=== PATIENT | female | born 1970 | race African-American/Black ===

== ENCOUNTER → 2017-01-08 | Outpatient (CLI) | payer OTHER | LOC: WI 10:30 | PROVIDERS: ATTEND Obstetrics & Gynecology | DX: Z12.31 Encounter for screening mammogram for malignant neoplasm of breast (principal) | CPT/HCPCS: 77067; G0202 ==

== ENCOUNTER 2017-01-16 13:07 | Emergency (ER) | payer OTHER ==
[2017-01-16] MEDS ORDERED: ASPIRIN 81 MG TABLET, CHEWABLE PO ONE (13:27)
--- NOTE | 2017-01-16 13:27 | ER Document Report ---
ED Medical Screen (RME) - General Stated Complaint: CHEST PAIN Notes: patient is a 46 year old 4 days ago, substernal pressure that is constant without any wax/waning. hurts worse with deep breathing. -tobacco use, BC, recent travel, recent surgery, cancer h/o -htn, hld, GERD +Dm I have greeted and performed a rapid initial assessment of this patient. A comprehensive ED assessment and evaluation of the patient, analysis of test results and completion of the medical decision making process will be conducted by additional ED providers. TRAVEL OUTSIDE OF THE [place] IN LAST 30 DAYS: No - Related Data Allergies/Adverse Reactions: hydrocodone Adverse Reaction (Verified 05/16/16 08:11) Past Medical History - Past Medical History Cardiac Medical History: Denies: Hx Coronary Artery Disease, Hx Heart Attack, Hx Hypertension Pulmonary Medical History: Denies: Hx Asthma, Hx Bronchitis, Hx COPD, Hx Pneumonia Neurological Medical History: Denies: Hx Cerebrovascular Accident, Hx Seizures Musculoskeltal Medical History: Reports Hx Arthritis - hands and knees - Immunizations Hx Diphtheria, Pertussis, Tetanus Vaccination: Yes Physical Exam - Vital signs Vitals: Temp Pulse BP Pulse Ox 98.0 F 72 137/79 H 98 01/16/17 13:20 01/16/17 13:20 01/16/17 13:20 01/16/17 13:20 Course - Vital Signs Vital signs: Temp Pulse Resp BP Pulse Ox 98.0 F 72 137/79 H 98 01/16/17 13:20 01/16/17 13:20 01/16/17 13:20 01/16/17 13:20
[2017-01-16 13:59] LABS: ABSOLUTE MONOCYTES (AUTO) 0.5 10^3/uL (0.1-1.4); ABSOLUTE NEUT (AUTO) 4.1 10^3/uL (1.7-8.2); BASOPHILS % (AUTO) 0.6 % (0-2); EOSINOPHILS % (AUTO) 0.4 % (0-6); HEMATOCRIT 37.6 % (36.0-47.0); HEMOGLOBIN 12.2 g/dL (12.0-15.5); MEAN CORPUSCULAR HEMOGLOBIN 25.9 pg (27.0-33.4); MEAN CORPUSCULAR HGB CONC 32.5 g/dL (32.0-36.0); MEAN CORPUSCULAR VOLUME 80 fl (80-97); MONOCYTES % (AUTO) 7.6 % (3-13); RED BLOOD COUNT 4.71 10^6/uL (3.72-5.28); RED CELL DISTRIBUTION WIDTH 14.5 % (11.5-14.0); SEGMENTED NEUTROPHILS % (AUTO) 61.4 % (42-78); WHITE BLOOD COUNT 6.7 10^3/uL (4.0-10.5)
[2017-01-16 14:09] LABS: ALANINE AMINOTRANSFERASE 29 U/L (9-52); ALBUMIN 4.2 g/dL (3.5-5.0); ALKALINE PHOSPHATASE 71 U/L (38-126); ANION GAP 10 (5-19); ASPARTATE AMINO TRANSFERASE 24 U/L (14-36); BILIRUBIN,TOTAL 0.5 mg/dL (0.2-1.3); BLOOD UREA NITROGEN 8 mg/dL (7-20); CALCIUM 9.4 mg/dL (8.4-10.2); CARBON DIOXIDE 30 mmol/L (22-30); CHLORIDE 99 mmol/L (98-107); CREATINE KINASE 51 U/L (30-135); GLUCOSE 80 mg/dL (75-110); POTASSIUM 4.2 mmol/L (3.6-5.0); SODIUM 139.3 mmol/L (137-145); TOTAL PROTEIN 7.8 g/dL (6.3-8.2)
[2017-01-16 14:22] LABS: CREATINE KINASE MB < 0.22 ng/mL (<4.55); TROPONIN I < 0.012 ng/mL
--- NOTE | 2017-01-16 19:47 | ER Document Report ---
ED Cardiac - General Chief Complaint: Chest Pain Stated Complaint: CHEST PAIN Notes: The patient is a 46-year-old female, past medical history prediabetes, presents with 3 days of right sternal chest pain that is worse when she moves. She is never had this in the past. Does not remember lifting any heavy objects. She says the pain is worse when she pushes on the area. Denies shortness of breath , nausea, vomiting, leg swelling, recent travel, recent surgery, history of malignancy, control use, cough, fevers or back pain. TRAVEL OUTSIDE OF THE [place] IN LAST 30 DAYS: No - Related Data Allergies/Adverse Reactions: hydrocodone Adverse Reaction (Verified 01/16/17 13:24) Past Medical History - General Information source: Patient - Social History Smoking Status: Never Smoker Chew tobacco use (# tins/day): No Frequency of alcohol use: None Drug Abuse: None Family History: Reviewed & Not Pertinent Patient has suicidal ideation: No Patient has homicidal ideation: No - Past Medical History Cardiac Medical History: Denies: Hx Coronary Artery Disease, Hx Heart Attack, Hx Hypertension Pulmonary Medical History: Denies: Hx Asthma, Hx Bronchitis, Hx COPD, Hx Pneumonia Neurological Medical History: Denies: Hx Cerebrovascular Accident, Hx Seizures Renal/ Medical History: Denies: Hx Peritoneal Dialysis Musculoskeltal Medical History: Reports Hx Arthritis - hands and knees Past Surgical History: Reports: Hx Orthopedic Surgery - R SHOULDER REPLACEMENT, Hx Thyroid Surgery, Hx Tubal Ligation - Immunizations Hx Diphtheria, Pertussis, Tetanus Vaccination: Yes Review of Systems - Review of Systems Notes: REVIEW OF SYSTEMS: CONSTITUTIONAL: -fevers, -chills EENT: -eye pain, -difficulty swallowing, -nasal congestion CARDIOVASCULAR: +chest pain, -syncope. RESPIRATORY: -cough, -SOB GASTROINTESTINAL: -abdominal pain, - nausea, -vomiting, -diarrhea GENITOURINARY: -dysuria, -hematuria MUSCULOSKELETAL: -back pain, -neck pain SKIN: -rash or skin lesions. HEMATOLOGIC: -easy bruising or bleeding. LYMPHATIC: -swollen, enlarged glands. NEUROLOGICAL: -altered mental status or loss of consciousness, -headache, - neurologic symptoms PSYCHIATRIC: -anxiety, -depression. ALL OTHER SYSTEMS REVIEWED AND NEGATIVE. Physical Exam - Vital signs Vitals: Temp Pulse BP Pulse Ox 98.0 F 72 137/79 H 98 01/16/17 13:20 01/16/17 13:20 01/16/17 13:20 01/16/17 13:20 - Notes Notes: PHYSICAL EXAMINATION: GENERAL: Well-appearing, well-nourished and in no acute distress. HEAD: Atraumatic, normocephalic. EYES: Pupils equal round and reactive to light, extraocular movements intact, sclera anicteric, conjunctiva are normal. ENT: nares patent, oropharynx clear without exudates. Moist mucous membranes. NECK: Normal range of motion, supple without lymphadenopathy LUNGS: Breath sounds clear to auscultation bilaterally and equal. No wheezes rales or rhonchi. HEART: Right mid-sternal tenderness. Regular rate and rhythm without murmurs ABDOMEN: Soft, nontender, normoactive bowel sounds. No guarding, no rebound. No masses appreciated. EXTREMITIES: Normal range of motion, no pitting or edema. No cyanosis. NEUROLOGICAL: Cranial nerves grossly intact. Normal speech, normal gait. Normal sensory, motor, and reflex exams. PSYCH: Normal mood, normal affect. SKIN: Warm, Dry, normal turgor, no rashes or lesions noted. Course - Re-evaluation Re-evalutation: 2 sets of troponins are negative. HEART score of 2. PERC negative. Symptoms atypical for aortic dissection. Patient says she will call her primary care physician tomorrow morning for an appointment. Given strict return precautions and she understands. - Vital Signs Vital signs: Temp Pulse Resp BP Pulse Ox 98.0 F 72 137/79 H 98 01/16/17 13:20 01/16/17 13:20 01/16/17 13:20 01/16/17 13:20 - Laboratory Result Diagrams: 01/16/17 13:30 01/16/17 13:30 Laboratory results interpreted by me: 01/16/17 13:30 MCH 25.9 L RDW 14.5 H Discharge - Discharge Clinical Impression: Chest pain Qualifiers: Chest pain type: unspecified Qualified Code(s): R07.9 - Chest pain, unspecified Condition: Good Disposition: HOME, SELF-CARE Additional Instructions: Call your primary care physician tomorrow to make an appointment to have your chest pain rechecked. Return immediately to the emergency room if he noticed worsening chest pain or shortness of breath. CHEST PAIN OF UNCLEAR CAUSE: The exact cause of your chest pain isn't clear. Fortunately, there is no evidence of a dangerous medical condition. Further testing may be required to find the source of the pain. Most often, we find that this pain is coming from the chest wall -- the muscles or rib joints in the chest. But chest pain can come from the lung and lung lining, the esophagus, the heart valves or heart lining, and even the stomach or gallbladder. Rest. Eat lightly until the pain is gone. We may prescribe medicine for pain and inflammation. You should call the physician immediately if the pain radiates to the shoulder, jaw or arms; if you start to run a fever or develop a cough; or if you develop shortness of breath, or other new or alarming symptoms. NORMAL EXAM AND WORKUP: At this time, your examination and workup show no significant abnormality. No significant abnormal physical findings were noted. All laboratory, EKG, and imaging (x-ray, CT scans, ultrasound) studies that were ordered show no significant abnormality. Although your examination and all studies that were ordered showed no significant abnormal finding, there are no examinations and no studies that are 100% accurate. There is always the possibility that some abnormality could exist and not be detected with physical examination or within the limits and capabilities of laboratory and other studies. You should return or follow up as you were instructed on your visit today for further evaluation if your symptoms do not resolve. CHEST WALL PAIN: Your chest pain may be coming from the chest wall. This is often caused by straining the muscles or joints in the chest during physical activity, direct trauma, coughing, or vigorous vomiting. Persons with arthritis are especially prone to this type of pain, due to inflammation of the cartilage joints near the breast bone. Occasionally, no cause can be found. Rest from strenuous physical activity. This kind of chest pain is usually made worse by movement of the chest. Depending on the symptoms, we may prescribe medicine for pain, muscle relaxation, and antiinflammatory effects. If the pain is new, and seems to be due to muscle strain, cold packs can help. Otherwise, apply gentle warmth to the painful area for 15 minutes every hour or two. You should call contact the doctor immediately if things change. Further evaluation is needed if you develop a fever or cough, if the nature of the pain changes, or if you become short of breath. FOLLOW-UP CARE: If you have been referred to a physician for follow-up care, call the physician s office for an appointment as you were instructed or within the next two days. If you experience worsening or a significant change in your symptoms, notify the physician immediately or return to the Emergency Department at any time for re-evaluation.
[2017-01-16 20:20] VITALS: BP 135/79
--- NOTE | 2017-01-17 12:35 | EKG REPORT ---
SEVERITY:- ABNORMAL ECG - SINUS RHYTHM VENTRICULAR PREMATURE COMPLEX RIGHT AXIS DEVIATION PROBABLE INFERIOR INFARCT, OLD : Confirmed by: Elisa Ceballos 17-Jan-2017 12:34:49
== END 2017-01-16 20:20 | disposition home or self-care (01) ==
LOC: ER 13:07
DX: R07.9 Chest pain, unspecified (principal)
CPT/HCPCS: 36415; 71010; 80053; 82550; 82553; 84484; 85025; 93005; 93010; 99285

== ENCOUNTER → 2017-04-16 | Outpatient (CLI) | payer OTHER | LOC: WI 10:00 | PROVIDERS: ATTEND Obstetrics & Gynecology | DX: N64.4 Mastodynia (principal); R59.0 Localized enlarged lymph nodes | CPT/HCPCS: 76642; G0206 ==

== ENCOUNTER → 2017-05-14 | Outpatient (CLI) | payer OTHER ==
--- NOTE | 2017-05-15 10:10 | RADIOLOGY REPORT (SQ) ---
EXAM DESCRIPTION: MRI BREAST BILAT W AND/OR WO COMPLETED DATE/TIME: 05/14/2017 8:49 am REASON FOR STUDY: AXILLARY LYMPHADENOPATHY (R59.0) R59.0 LOCALIZED ENLARGED LYMPH NODES COMPARISON: Mammography and ultrasound PATHOLOGIC CORRELATION: None. CONTRAST TYPE AND DOSE: 20 mL Prohance. RENAL FUNCTION: None required. The patient is less than 50 years old. TECHNIQUE: MR imaging performed with a dedicated breast coil. Pre contrast T1 and T2 weighted images . Pre contrast and post contrast enhanced T1 weighted images with fat saturation. Subtraction images, 3D thick and thin MIPS, and kinetic analysis performed on an independent workstat ion. ([employer] workstation) Magnet strength: 1.5 T LIMITATIONS: None. FINDINGS: BREAST DENSITY: b. There are scattered areas of fibroglandular density. BACKGROUND PARENCHYMAL ENHANCEMENT:Mild. RIGHT BREAST: No enhancing or suspicious masses. No clumped, regional/segmental ductal enhancement. CHEST WALL: Normal tissue planes. No abnormal internal mammary nodes. AXILLA: Normal axillary and retro-pectoral nodes. LEFT BREAST:There are multiple micro lobular heterogeneously enhancing masses in the axillary tail of the breast extending to the axilla. Type 3 enhancement curves. The largest mass is 5 cm in maximum diameter. There is generalize asymmetric enhancement through the entire breast. There is skin thic kening. CHEST WALL: Normal tissue planes. No abnormal internal mammary nodes. AXILLA: Enlarged axillary nodes just adjacent to the dominant mass which is either an axillary node or mass in the tail of the breast. OTHER:No identified liver, bone, or lung lesions. No other significant incidental findings. IMPRESSION: BI-RADS 5 left breast. Axillary adenopathy with diffuse breast enhancement and skin thi ckening all worrisome for inflammatory breast carcinoma. BIRAD: RIGHT BREAST: 1 Negative. LEFT BREAST: 5 Highly suggestive of malignancy. Appropriate action should be taken. RECOMMENDATION: RECOMMENDED FOLLOW-UP: Ultrasound-guided core biopsy of the dominant mass in the lef t breast. TECHNICAL DOCUMENTATION: JOB ID: [id number] [employer]- All Rights Reserved
== END ==
LOC: RAD 07:12
PROVIDERS: ATTEND Surgery
DX: R59.0 Localized enlarged lymph nodes (principal); N63 Unspecified lump in breast
CPT/HCPCS: A9576; C8906; 77059

== ENCOUNTER → 2017-05-15 | Day surgery (SDC) | payer OTHER ==
[~2017-05-15] MED LIST: LIDOCAINE 2% INJ (20 MG/ML) 20 ML MDV ONE
--- NOTE | 2017-05-21 16:35 | WOMENS IMAGING REPORT ---
EXAM DESCRIPTION: U/S BREAST BX; U/S BREAST BX EACH ADDT'L COMPLETED DATE/TIME: 05/15/2017 12:27 pm; 05/15/2017 12:28 pm REASON FOR STUDY: R59.0 R59.0 LOCALIZED ENLARGED LYMPH NODES COMPARISON: MRI breast 05/14/2017, mammograms and breast ultrasound 04/16/2017 TECHNIQUE: The procedure was discussed with the patient and the patient agreed to proceed. Enlarged left axillary lymph node was targeted. There was a vague area of breast parenchymal shadowing in th e far upper outer quadrant adjacent to the lymph node which was also targeted. The patient was scanned and the area of interest in the far upper outer quadrant left breast. An enl arged axillary lymph node was localized, with a vague area of breast parenchymal shadowing in the far upper outer quadrant. These areas correlate with the area of concern on prior imaging studies. The se areas were targeted for ultrasound-guided core biopsy. LEFT AXILLA: After sterile skin prep and 3.5 mL local lidocaine 1% for skin and deep tissue anesthesia, a 14 gauge coaxial core biopsy needle was used to obtain several cores of tissue from the lesion. Under ultras ound guidance, a ribbon clip was placed in the areas sampled. There were no immediate post-procedure complications. LEFT UPPER OUTER QUADRANT: After sterile skin prep and 3 mL local lidocaine 1% for skin and deep tissue anesthesia, a 14 gauge c oaxial core biopsy needle was used to obtain several cores of tissue from the lesion. Under ultrasou nd guidance, a ribbon clip was placed in the areas sampled. There were no immediate post-procedure c omplications. MAMMOGRAM: Post-procedure two view mammogram was not acquired in the digital mammogram suite. Pathology yields a diagnosis of metastatic high-grade carcinoma in the left axillary lymph node and i n the upper outer quadrant breast parenchyma Pathology is concordant. LIMITATIONS: None. FINDINGS: Ultrasound guided breast biopsy as described above. POST PROCEDURE MAMMOGRAMS FOR MARKER PLACEMENT: No IMPRESSION: ULTRASOUND-GUIDED CORE BIOPSY OF THE LEFT BREAST YIELDS A DIAGNOSIS OF MALIGNANCY COMMENT: COMMUNICATION: RESULTS OF THE BIOPSY WERE DISCUSSED WITH THE PATIENT, 05/19/2017 1700 HOURS Patient medication list reviewed: Yes- Quality ID# [id number]:Eligible professional attests to documenting i n the medical record they obtained, updated, or reviewed the patient's current medications. TECHNICAL DOCUMENTATION: JOB ID: [id number] [employer]- All Rights Reserved
== END ==
LOC: WI 13:19
PROVIDERS: ATTEND Surgery
PROC: 0HBU3ZX Excision of Left Breast, Percutaneous Approach, Diagnostic (ICD-10-PCS; principal; 2017-05-15)
DX: C50.412 Malignant neoplasm of upper-outer quadrant of left female breast (principal); C77.3 Secondary and unspecified malignant neoplasm of axilla and upper limb lymph nodes
CPT/HCPCS: 88342 ×2; 88341 ×2; 88305 ×2; 19083; 19084; J3490

== ENCOUNTER 2017-05-20 10:00 | Day surgery (SDC) | payer OTHER ==
[~2017-05-20 10:00] MED LIST changes: +ACETAMINOPHEN 325 MG TABLET PO PRN; +CEFAZOLIN 1 GM/D5W RTU 1 GM/50 ML RTUPB IV PRN; -LIDOCAINE 2% INJ (20 MG/ML) 20 ML MDV ONE
[2017-05-20] MEDS ORDERED: BUPIVACAINE HCL 0.25 % INJ/PF (2.5 MG/1 ML) 30 ML VIAL ONE ×2 (10:02→13:57)
[2017-05-20] MEDS ORDERED: MIDAZOLAM 2 MG/2 ML INJ ONE ×2 (10:47→11:20)
[2017-05-20 10:58] LABS: ABSOLUTE LYMPHOCYTES (AUTO) 1.5 10^3/uL (0.5-4.7); ABSOLUTE MONOCYTES (AUTO) 0.4 10^3/uL (0.1-1.4); ABSOLUTE NEUT (AUTO) 2.6 10^3/uL (1.7-8.2); EOSINOPHILS % (AUTO) 0.6 % (0-6); HEMATOCRIT 37.6 % (36.0-47.0); HEMOGLOBIN 11.8 g/dL (12.0-15.5); HGB HCT DIFFERENCE -2.2; LYMPHOCYTES % (AUTO) 32.6 % (13-45); MEAN CORPUSCULAR HGB CONC 31.5 g/dL (32.0-36.0); MEAN CORPUSCULAR VOLUME 79 fl (80-97); MONOCYTES % (AUTO) 8.8 % (3-13); RED BLOOD COUNT 4.74 10^6/uL (3.72-5.28); RED CELL DISTRIBUTION WIDTH 15.1 % (11.5-14.0); WHITE BLOOD COUNT 4.5 10^3/uL (4.0-10.5)
--- NOTE | 2017-05-20 11:03 | RADIOLOGY REPORT (SQ) ---
EXAM DESCRIPTION: CHEST SINGLE VIEW COMPLETED DATE/TIME: 05/20/2017 10:51 am REASON FOR STUDY: preop/ PACU 10 COMPARISON: 01/16/2017 EXAM PARAMETERS: NUMBER OF VIEWS: One view. TECHNIQUE: Single frontal radiographic view of the chest acquired. RADIATION DOSE: NA LIMITATIONS: None. FINDINGS: LUNGS AND PLEURA: No opacities, masses or pneumothorax. No pleural effusion. MEDIASTINUM AND HILAR STRUCTURES: No masses. Contour normal. HEART AND VASCULAR STRUCTURES: Heart normal in size. Normal vasculature. BONES: No acute findings. HARDWARE: None in the chest. OTHER: No other significant finding. IMPRESSION: NO ACUTE RADIOGRAPHIC FINDING IN THE CHEST. TECHNICAL DOCUMENTATION: JOB ID: [id number]
[2017-05-20 11:11] LABS: ALANINE AMINOTRANSFERASE 25 U/L (9-52); ALBUMIN 4.1 g/dL (3.5-5.0); ALKALINE PHOSPHATASE 70 U/L (38-126); ANION GAP 9 (5-19); ASPARTATE AMINO TRANSFERASE 25 U/L (14-36); BILIRUBIN,DIRECT 0.3 mg/dL (0.0-0.4); BILIRUBIN,TOTAL 0.6 mg/dL (0.2-1.3); BLOOD UREA NITROGEN 10 mg/dL (7-20); CALCIUM 9.2 mg/dL (8.4-10.2); CARBON DIOXIDE 28 mmol/L (22-30); CHLORIDE 105 mmol/L (98-107); GLUCOSE 92 mg/dL (75-110); POTASSIUM 3.9 mmol/L (3.6-5.0); SODIUM 142.1 mmol/L (137-145); TOTAL PROTEIN 7.9 g/dL (6.3-8.2)
[2017-05-20] MEDS ORDERED: FENTANYL CITRATE INJ/PF 100 MCG/2 ML AMPUL ONE ×2 (11:19→12:36)
[2017-05-20] MEDS ORDERED: PROPOFOL INJ 200 MG/20 ML VIAL IV ONE ×3 (11:20→13:09)
[2017-05-20] MEDS ORDERED: MEPERIDINE HCL/PF INJ 25 MG/1 ML DISP.SYRIN IV PRN (12:53)
[2017-05-20] MEDS ORDERED: PROMETHAZINE HCL INJ 25 MG/1 ML VIAL IV PRN ×2 (12:53)
[2017-05-20] MEDS ORDERED: FENTANYL CITRATE INJ/PF 100 MCG/2 ML AMPUL IV PRN ×3 (12:53)
[2017-05-20] MEDS ORDERED: DIPHENHYDRAMINE HCL 50 MG/ML VIAL IV PRN (12:53)
[2017-05-20] MEDS ORDERED: ONDANSETRON HCL INJ/PF 4 MG/2 ML SDV IV PRN (12:53)
--- NOTE | 2017-05-20 14:59 | PDOC DISCHARGE SUMMARY ---
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 Left breast punch skin biopsy. Left breast core needle biopsies. May discharge patient home when met discharge criteria. Follow-up with me next week. May shower tomorrow. Take the Band-Aid off of her left breast tomorrow. Prescriptions: Oxycodone HCl/Acetaminophen [Percocet 5-325 mg Tablet] 1 tab PO ASDIR PRN #25 tablet PRN Reason: Discharge Diet: As Tolerated Discharge Activity: Activity As Tolerated - Stay active but avoid strenuous activity. Report the Following to Your Physician Immediately: Fever over 101 Degrees, Unusual Bleeding, Drainage-Foul Smelling
--- NOTE | 2017-05-20 15:19 | RADIOLOGY REPORT (SQ) ---
EXAM DESCRIPTION: FLUORO/CV PLACEMENT COMPLETED DATE/TIME: 05/20/2017 2:29 pm REASON FOR STUDY: PORTACATH C50.912 MALIGNANT NEOPLASM OF UNSPECIFIED SITE OF LEFT FEMAL COMPARISON: AP chest 05/20/2017 FLUOROSCOPY TIME: 14.1 minutes 12 series of digital images saved to PACS. TECHNIQUE: Intra-operative images acquired during surgical procedure to evaluate progress. NUMBER OF IMAGES: 12 series of digital fluoro images LIMITATIONS: None. FINDINGS: Intra procedural imaging and fluoro during placement of a right-sided permanent central li ne with the tip in the superior vena cava. Please see the operative report for further details IMPRESSION: Intra procedural imaging and fluoro COMMENT: Quality ID [id number]: Final reports for procedures using fluoroscopy that document radiation exp osure indices, or exposure time and number of fluorographic images (if radiation exposure indices are not available) Please consult full operative report of the attending physician for description of the procedure. TECHNICAL DOCUMENTATION: JOB ID: [id number] [facility]- All Rights Reserved
--- NOTE | 2017-05-20 15:40 | RADIOLOGY REPORT (SQ) ---
EXAM DESCRIPTION: CHEST SINGLE VIEW COMPLETED DATE/TIME: 05/20/2017 3:30 pm REASON FOR STUDY: post op pacu COMPARISON: Chest film 01/16/2017 EXAM PARAMETERS: NUMBER OF VIEWS: One view. TECHNIQUE: Single frontal radiographic view of the chest acquired. RADIATION DOSE: NA LIMITATIONS: None. FINDINGS: LUNGS AND PLEURA: No opacities, masses or pneumothorax. No pleural effusion. MEDIASTINUM AND HILAR STRUCTURES: No masses. Contour normal. HEART AND VASCULAR STRUCTURES: Stable mild cardiomegaly. Normal vasculature. BONES: No acute findings. HARDWARE: Right-sided permanent central line tip superior vena cava. OTHER: No other significant finding. IMPRESSION: Post right permanent central line placement with the tip in the superior vena cava. No pneumothorax. Stable mild cardiomegaly TECHNICAL DOCUMENTATION: JOB ID: [id number]
[2017-05-20 17:05] VITALS: BP 131/87
--- NOTE | 2017-05-22 18:41 | Operative Report ---
Operative Report DATE OF SURGERY: 05/20/17 PREOPERATIVE DIAGNOSIS: Left breast cancer. POSTOPERATIVE DIAGNOSIS: Left breast cancer OPERATION: Right internal jugular single-lumen PowerPort placement (permanent implanted central venous access placed under fluoroscopic and ultrasound guidance). Left breast skin punch biopsy. Left breast core needle biopsies. SURGEON: [facility] NURSE: BUCKY MONDRAGON ANESTHESIA: LMAC TISSUE REMOVED OR ALTERED: Left breast periareolar skin punch biopsy. Left upper outer breast multiple core needle biopsies. COMPLICATIONS: None ESTIMATED BLOOD LOSS: 30 cc INTRAOPERATIVE FINDINGS: Fullness in the left upper quadrant of the left breast along with subtle skin thickening along with nipple retraction. Large mass at the left axilla. PROCEDURE: Informed consent was obtained. Patient was brought to the operating room placed on the operating table in the supine position. Procedure was done under LMAC. Her bilateral breast and chest and neck were prepped and draped in the usual sterile fashion. After administration of local anesthetic the right subclavian vein was entered and guidewire was placed. However the guidewire kept on going across to the left side. Despite multiple technical measures. A Glidewire was used and still it kept him going to the left side. The needle was pulled and a different angle of approach was taken entering the left subclavian vein. After multiple manipulations of the Glidewire the Glidewire finally appeared to go down to what appeared to be the superior vena cava and the right atrium. However the positioning looked slightly more medial than I would expect therefore after placement of a angiocatheter through the Glidewire , contrast study was obtained. It demonstrated a variant appearing anatomy. At this point I obtain help from Dr. Bucky Mondragon (vascular surgeon) who placed a angiocatheter into the right internal jugular vein under ultrasound guidance. The Glidewire appeared to go to in the same location as the subclavian approach. Contrast was injected into the right internal jugular vein and again it showed the same a variant appearing anatomy. However it was 100% certain that it was then the vein. Therefore a introducer catheter was placed. A right upper chest subcutaneous pocket was created. Single-lumen PowerPort catheter was then tunneled between the 2 incisions and the catheter was fed into the superior vena cava through the introducer catheter. The catheter was cut to length and attached to the PowerPort device which was then implanted into the subcutaneous pocket. Fluoroscopic views demonstrated good positioning of the catheter. Hemostasis appeared excellent. The PowerPort withdrew blood and flushed easily. All skin incisions were closed with subcuticular interrupted Vicryl sutures followed by Dermabond closure. Patient had a subtle skin thickening diffusely of her left breast more pronounced than the left upper and left upper outer breast in the periareolar region with associated nipple retraction. At the periareolar region at the upper outer region local anesthetic was administered and a 4 mm punch biopsy of the skin was obtained. the specimen was submitted to pathology. Hemostasis was achieved with electrocautery in the subcutaneous tissue and the wound was closed with interrupted nylon sutures. Patient had fullness of the left upper outer breast but not a distinct mass in this area. She did have a large mass in her left axilla. After administration of local anesthetic a incision was made in the skin allowing placement of a core needle biopsy device and multiple core needle biopsies were taken of the left upper outer breast. The small stab incision was closed with interrupted nylon suture. Patient tolerated procedure well with no apparent complications and was taken to the recovery area in stable condition.
== END 2017-05-20 17:00 | disposition home or self-care (01) ==
LOC: OROUT 10:00
PROVIDERS: ATTEND Surgery
PROC: 05HM33Z Insertion of Infusion Device into Right Internal Jugular Vein, Percutaneous Approach (ICD-10-PCS; principal; 2017-05-20 12:00)
PROC: 0HBU3ZX Excision of Left Breast, Percutaneous Approach, Diagnostic (ICD-10-PCS; 2017-05-20 12:00)
DX: C50.912 Malignant neoplasm of unspecified site of left female breast (principal); R59.0 Localized enlarged lymph nodes; F32.9 Major depressive disorder, single episode, unspecified; E03.9 Hypothyroidism, unspecified; M06.9 Rheumatoid arthritis, unspecified; Z79.899 Other long term (current) drug therapy; Z87.891 Personal history of nicotine dependence
CPT/HCPCS: 36415; 85025; 81025; 80053; 88305 ×2; 71010; 77001; 36561; 19100; C1769; C1752; C1788; J2250; J0690; J3010; J2704; J1642; 532

== ENCOUNTER → 2017-05-26 | Outpatient (CLI) | payer OTHER ==
--- NOTE | 2017-05-26 13:35 | RADIOLOGY REPORT (SQ) ---
EXAM DESCRIPTION: NM MUGA REST COMPLETED DATE/TIME: 05/26/2017 1:17 pm REASON FOR STUDY: MAL HOANG OF UPPER OTHER QUADRANT OF LEFT FEMALE BREAST C50.412 MALIG NEOPLASM OF U PPER-OUTER QUADRANT OF LEFT FEMAL Z08 ENCNTR FOR FOLLOW-UP EXAM AFTER TRTMT FOR MALIGNANT NEOP Z51.1 1 ENCOUNTER FOR ANTINEOPLASTIC CHEMOTHERAPY COMPARISON: No previous RADIONUCLIDE AND DOSE: 26.9 mCi of technetium 99 M pyrophosphate was tagged to the patient's own red cells for MUGA scan TECHNIQUE: Following administration of the radionuclide, gated images of the heart are obtained in t hree projections. Left ventricular functional analysis performed. LIMITATIONS: None. FINDINGS: LEFT VENTRICULAR FUNCTION: EJECTION FRACTION: 61%. END-DIASTOLIC VOLUME: 199 mL. END-SYSTOLIC VOLUME: 66 mL. WALL MOTION: No focal wall motion abnormalities. OTHER: No other significant finding. IMPRESSION: NORMAL CARDIAC MUGA STUDY. Estimated left ventricular ejection fraction 61%. TECHNICAL DOCUMENTATION: JOB ID: [id number] [employer]- All Rights Reserved
== END ==
LOC: RAD 10:46
PROVIDERS: ATTEND Internal Medicine
DX: C50.412 Malignant neoplasm of upper-outer quadrant of left female breast (principal)
CPT/HCPCS: 78472; A9560; Q9969

== ENCOUNTER → 2017-09-21 | Outpatient (CLI) | payer OTHER ==
--- NOTE | 2017-09-22 10:51 | RADIOLOGY REPORT (SQ) ---
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 TECHNIQUE: Blood glucose level was verified. Above dose of FDG was injected intravenously. 2-D seg mented attenuation correction images were obtained from the base of the skull to the midthighs. Nonc ontrast CT images were obtained for attenuation correction and fusion with emission images. CT image s were performed without oral or intravenous contrast and are not sensitive for parenchymal lesions. A series of overlapping emission PET images were obtained. Images reviewed and manipulated at [facility] work station by the radiologist. Images stored on PACS. LIMITATIONS: None. FINDINGS: HEAD AND NECK: No areas of abnormal metabolic activity in the soft tissues of the head and neck. Left supraclavicular adenopathy seen on 05/28/2017 has resolved. CHEST: There is soft tissue activity inferior to the left axillary lymph node without a measurable c orresponding mass by CT. SUV in this area is 3.5, of uncertain clinical significance. Corresponding CT images 74-76 demonstrate no focal mass. There is a left axillary lymph node 3 x 2.4 cm in size with SUV less than 1 (was 7.3 x 4 cm in size w ith SUV of 9 on 05/28/2017 PET-CT). Left lateral rib activity described 05/28/2017 is no longer seen. Right hilar metabolically active lymph nodes seen on 05/28/2017 are no longer identified. ABDOMEN AND PELVIS: No areas of abnormal metabolic activity in the abdomen or pelvis. Expected physi ologic activity is present in the genitourinary system and bowel. PROXIMAL LOWER EXTREMITIES: No areas of abnormal metabolic activity in the soft tissues of the lower extremities. BONES: No abnormal bony activity on today's study. No sclerotic lesions in the spine are identified today. ADDITIONAL CT FINDINGS: Right permanent central line catheter tip in the superior vena cava. Diffuse left breast periareolar skin thickening without increased metabolic activity. OTHER: Liver background SUV 1.4. Blood pool background SUV 1.1. IMPRESSION: Enlarged hypermetabolic left axillary lymph node seen on 05/28/2017 is non metabolic on t flynn's study. Inferior to the left axillary lymph node, there is a bandlike area of increased activity SUV 3.5, wit hout a CT discernible mass. This is of uncertain clinical significance. Left supraclavicular hypermetabolic nodes seen 05/28/2017 have resolved. No hypermetabolic lesions in the lower thoracic spine, left lateral ribs or L1 level. TECHNICAL DOCUMENTATION: JOB ID: [id number] [employer]- All Rights Reserved
== END ==
LOC: RAD 15:48
PROVIDERS: ATTEND Internal Medicine
DX: C50.412 Malignant neoplasm of upper-outer quadrant of left female breast (principal)
CPT/HCPCS: 78815; A9552

== ENCOUNTER → 2017-09-30 | Outpatient (CLI) | payer OTHER ==
--- NOTE | 2017-10-02 02:03 | RADIOLOGY REPORT (SQ) ---
EXAM DESCRIPTION: MRI BREAST BILAT W AND/OR WO COMPLETED DATE/TIME: 09/30/2017 1:25 pm REASON FOR STUDY: BREAST CA (C50.412) C50.412 MALIG NEOPLASM OF UPPER-OUTER QUADRANT OF LEFT FEMAL COMPARISON: 05/14/2017 PATHOLOGIC CORRELATION: Left breast carcinoma CONTRAST TYPE AND DOSE: 20 mL Prohance. RENAL FUNCTION: None required. The patient is less than 50 years old. TECHNIQUE: MR imaging performed with a dedicated breast coil. Pre contrast T1 and T2 weighted images . Pre contrast and post contrast enhanced T1 weighted images with fat saturation. Subtraction images, 3D thick and thin MIPS, and kinetic analysis performed on an independent workstat ion. ([employer] workstation) Magnet strength: 1.5 T LIMITATIONS: None. FINDINGS: BREAST DENSITY: c. The breasts are heterogeneously dense, which may obscure small masses. BACKGROUND PARENCHYMAL ENHANCEMENT:Mild. RIGHT BREAST: No enhancing or suspicious masses. No clumped, regional/segmental ductal enhancement. CHEST WALL: Normal tissue planes. No abnormal internal mammary nodes. AXILLA: Normal axillary and retro-pectoral nodes. LEFT BREAST:Generalized increased enhancement throughout the left breast when compared to the right, however improved over previous. No discrete micro nodular enhancement as seen previously. Persisten t skin thickening. Dominant mass which is either in the axillary tail of the breast or left axilla now measures 3 cm compared to 5 cm previously. CHEST WALL: Normal tissue planes. No abnormal internal mammary nodes. AXILLA: Persistent axillary nodes. The largest is decreased from 3 cm to 1.7 cm. OTHER:No identified liver, bone, or lung lesions. No other significant incidental findings. IMPRESSION: Moderate response to treatment of the left breast. Persistent dominant axillary node/ma ss tail of the left breast as well as axillary adenopathy. Generalize enhancement of the left breast and skin thickening, improved over previous. BIRAD: RIGHT BREAST: 1 Negative. LEFT BREAST: 6 Known biopsy-proven malignancy. Appropriate action should be taken. RECOMMENDATION: RECOMMENDED FOLLOW-UP: Per protocol. TECHNICAL DOCUMENTATION: JOB ID: [id number] [employer]- All Rights Reserved
== END ==
LOC: RAD 09:49
PROVIDERS: ATTEND Internal Medicine
DX: C50.412 Malignant neoplasm of upper-outer quadrant of left female breast (principal)
CPT/HCPCS: A9576; C8906; 77059

== ENCOUNTER 2017-10-14 14:30 | Observation (INO) | payer OTHER ==
[~2017-10-14 14:30] MED LIST changes: -CEFAZOLIN 1 GM/D5W RTU 1 GM/50 ML RTUPB IV PRN; +DEXAMETHASONE SOD PHOSPHATE INJ 4 MG/1 ML VIAL ONE; +GLYCOPYRROLATE INJ 0.4 MG/2 ML VIAL ONE; +KETOROLAC TROMETHAMINE 60 MG/2 ML SDV ONE; +LIDOCAINE 2% INJ-PF (20 MG/ML) 2 ML AMPUL ONE; +NEOSTIGMINE METHYLSULFATE 10 MG/10 ML VIAL ONE; +ONDANSETRON HCL INJ/PF 4 MG/2 ML SDV ONE; +ROCURONIUM BROMIDE INJ 50 MG/5 ML VIAL IV ONE; +SUCCINYLCHOLINE CHLORIDE INJ 200 MG/10 ML VIAL ONE
[2017-10-14 16:20] LABS: ABSOLUTE LYMPHOCYTES (AUTO) 0.6 10^3/uL (0.5-4.7); ABSOLUTE MONOCYTES (AUTO) 0.3 10^3/uL (0.1-1.4); ABSOLUTE NEUT (AUTO) 1.8 10^3/uL (1.7-8.2); BASOPHILS % (AUTO) 1.4 % (0-2); EOSINOPHILS % (AUTO) 1.4 % (0-6); HEMATOCRIT 34.3 % (36.0-47.0); HEMOGLOBIN 11.1 g/dL (12.0-15.5); LYMPHOCYTES % (AUTO) 20.9 % (13-45); MEAN CORPUSCULAR HEMOGLOBIN 27.7 pg (27.0-33.4); MEAN CORPUSCULAR HGB CONC 32.4 g/dL (32.0-36.0); MEAN CORPUSCULAR VOLUME 86 fl (80-97); MONOCYTES % (AUTO) 9.2 % (3-13); RED CELL DISTRIBUTION WIDTH 15.6 % (11.5-14.0); SEGMENTED NEUTROPHILS % (AUTO) 67.1 % (42-78); WHITE BLOOD COUNT 2.7 10^3/uL (4.0-10.5)
[2017-10-14 16:39] LABS: ALANINE AMINOTRANSFERASE 33 U/L (9-52); ALBUMIN 4.4 g/dL (3.5-5.0); ALKALINE PHOSPHATASE 52 U/L (38-126); ANION GAP 11 (5-19); ASPARTATE AMINO TRANSFERASE 24 U/L (14-36); BILIRUBIN,DIRECT 0.3 mg/dL (0.0-0.4); BILIRUBIN,TOTAL 0.5 mg/dL (0.2-1.3); BLOOD UREA NITROGEN 8 mg/dL (7-20); CALCIUM 9.5 mg/dL (8.4-10.2); CARBON DIOXIDE 30 mmol/L (22-30); CHLORIDE 106 mmol/L (98-107); CREATININE RESULT 0.62 mg/dL (0.52-1.25); GLUCOSE 82 mg/dL (75-110); POTASSIUM 3.9 mmol/L (3.6-5.0); SODIUM 146.9 mmol/L (137-145); TOTAL PROTEIN 6.9 g/dL (6.3-8.2)
[2017-10-14] MEDS ORDERED: BUPIVACAINE HCL 0.25 % INJ/PF (2.5 MG/1 ML) 30 ML VIAL ONE (18:32)
[2017-10-14] MEDS ORDERED: HYDROMORPHONE HCL INJ/PF 2 MG/ML AMPULE ONE (18:35)
[2017-10-14] MEDS ORDERED: MIDAZOLAM 2 MG/2 ML INJ ONE (18:36)
[2017-10-14] MEDS ORDERED: FENTANYL CITRATE INJ/PF 100 MCG/2 ML AMPUL ONE ×2 (18:36)
[2017-10-14] MEDS ORDERED: PROPOFOL INJ 200 MG/20 ML VIAL IV ONE (18:37)
[2017-10-14] MEDS ORDERED: ACETAMINOPHEN 0 ML IV ONE (18:37)
[2017-10-14] MEDS ORDERED: (PENDING PHARMACY ID) (Vitamin B Complex [Vitamin B Complex] 1 EACH) PO PRN (19:12)
[2017-10-14] MEDS ORDERED: ALPRAZOLAM 0.5 MG TABLET PO PRN (19:12)
--- NOTE | 2017-10-14 19:26 | PDOC H&P ---
History of Present Illness Admission Date/PCP: JOAQUIM MCKEON MD Patient complains of: New onset A. fib History of Present Illness: NORMA SEVILLA is a 47 year old female with breast cancer pending bilateral mastectomy in a couple of weeks. Patient was noted with right upper quadrant abdominal pain and subsequently underwent an ultrasound which demonstrated gallstones. She was scheduled for a laparoscopic cholecystectomy today however upon taking her to the operating room she was noted to be in an A. fib with rapid ventricular rate. With heart rate of 110. Patient has had no symptoms. No shortness of breath and no chest pain. She does not have any known cardiac history in the past although she notes that with her last orthopedic surgery about a year ago she has some cardiac irregularity. Patient is now being admitted for workup of her atrial fib. Her laparoscopic cholecystectomy has been postponed. Past Medical History Cardiac Medical History: Denies: Coronary Artery Disease, Myocardial Infarction, Hypertension Pulmonary Medical History: Denies: Asthma, Bronchitis, Chronic Obstructive Pulmonary Disease (COPD), Pneumonia Neurological Medical History: Denies: Seizures Endocrine Medical History: Reports: Hypothyroidism Malignancy Medical History: Reports: Breast Cancer - left breast cancer metastatic to the axilla status post neoadjuvant therapy GI Medical History: Reports: Other - Gallstones Musculoskeltal Medical History: Reports: Arthritis - hands and knees Psychiatric Medical History: Reports: Depression Hematology: Reports: Anemia - with period Past Surgical History Past Surgical History: Reports: Orthopedic Surgery - R SHOULDER REPLACEMENT, Thyroidectomy, Tubal Ligation Social History Smoking Status: Former Smoker Family History Family History: Reviewed & Not Pertinent Parental Family History Reviewed: Yes Children Family History Reviewed: Yes Sibling(s) Family History Reviewed.: Yes Medication/Allergy Home Medications: Levothyroxine Sodium [Synthroid] 200 mcg PO DAILY 04/25/16 Sertraline HCl [Zoloft 50 mg Tablet] 1 tab PO QHS 04/25/16 Oxycodone HCl/Acetaminophen [Percocet 5-325 mg Tablet] 1 tab PO ASDIR PRN #25 tablet 05/20/17 Alprazolam [Xanax] 0.5 mg PO ASDIR PRN 10/13/17 Gabapentin 300 mg PO TID 10/13/17 Vitamin B Complex 1 each PO ASDIR PRN 10/13/17 Ibuprofen 1 tab PO Q6 PRN 10/14/17 Allergies/Adverse Reactions: hydrocodone Adverse Reaction (Verified 10/14/17 15:31) Physical Exam Vital Signs: Temp Pulse Resp BP Pulse Ox 98.4 F 97 16 135/81 H 100 10/14/17 14:45 10/14/17 14:45 10/14/17 14:45 10/14/17 14:45 10/14/17 14:45 Intake & Output 10/13/17 10/14/17 10/15/17 06:59 06:59 06:59 Intake Total 1000 Output Total 400 Balance 600 Weight 108.86 kg 108.86 kg General appearance: PRESENT: no acute distress, cooperative Eye exam: PRESENT: conjunctiva pink Neck exam: PRESENT: other - Supple Respiratory exam: PRESENT: clear to auscultation tank Cardiovascular exam: PRESENT: irregular rhythm GI/Abdominal exam: PRESENT: other - Soft, nondistended, nontender to palpation. Extremities exam: PRESENT: other - No swelling. Neurological exam: PRESENT: alert, awake Psychiatric exam: PRESENT: appropriate affect Skin exam: PRESENT: warm Results Laboratory Results: 10/14/17 15:59 10/14/17 15:59 10/14/17 10/14/17 15:59 15:59 WBC 2.7 L RBC 4.00 Hgb 11.1 L Hct 34.3 L MCV 86 MCH 27.7 MCHC 32.4 RDW 15.6 H Plt Count 203 Seg Neutrophils % 67.1 Lymphocytes % 20.9 Monocytes % 9.2 Eosinophils % 1.4 Basophils % 1.4 Absolute Neutrophils 1.8 Absolute Lymphocytes 0.6 Absolute Monocytes 0.3 Absolute Eosinophils 0.0 Absolute Basophils 0.0 Sodium 146.9 H Potassium 3.9 Chloride 106 Carbon Dioxide 30 Anion Gap 11 BUN 8 Creatinine 0.62 Est GFR ( Amer) > 60 Est GFR (Non-Af Amer) > 60 Glucose 82 Calcium 9.5 Total Bilirubin 0.5 AST 24 ALT 33 Alkaline Phosphatase 52 Total Protein 6.9 Albumin 4.4 Assessment & Plan - Diagnosis (1) Atrial fibrillation with RVR Is this a current diagnosis for this admission?: Yes Plan: We will admit the patient to telemetry floor. Will obtain cardiology consultation. Will obtain an EKG and troponin and remainder of her chemistries. We will cancel her laparoscopic cholecystectomy for now. (2) Gallstones Is this a current diagnosis for this admission?: Yes Plan: We will hold off her laparoscopic cholecystectomy in 2 week get a better handle on her cardiac status.
[2017-10-14 19:30] LABS: MAGNESIUM 1.9 mg/dL (1.6-2.3); PHOSPHORUS 5.2 mg/dL (2.5-4.5)
[2017-10-14 19:47] LABS: SODIUM 147.2 mmol/L (137-145)
[2017-10-14] MEDS: METOPROLOL SUCCINATE 25 MG TAB.SR.24H PO ONE ×2 (19:56→22:13)
[2017-10-14] MEDS: SPIRONOLACTONE 25 MG TABLET PO ONE ×2 (19:56→22:12)
--- NOTE | 2017-10-14 20:05 | RADIOLOGY REPORT (SQ) ---
EXAM DESCRIPTION: CHEST SINGLE VIEW COMPLETED DATE/TIME: 10/14/2017 7:52 pm REASON FOR STUDY: cardiac dysrhymia, cardiomyopathy K80.80 OTHER CHOLELITHIASIS WITHOUT OBSTRUCTION COMPARISON: None. NUMBER OF VIEWS: One view. TECHNIQUE: Single frontal radiographic view of the chest acquired. LIMITATIONS: None. FINDINGS: LUNGS AND PLEURA: No opacities, masses or pneumothorax. No pleural effusion. MEDIASTINUM AND HILAR STRUCTURES: No masses. Contour normal. HEART AND VASCULAR STRUCTURES: Heart enlarged without failure. Normal vasculature. BONES: No acute findings. HARDWARE: Venous access catheter. OTHER: No other significant finding. IMPRESSION: HEART ENLARGED WITHOUT FAILURE. NO OTHER SIGNIFICANT RADIOGRAPHIC FINDING IN THE CHEST. TECHNICAL DOCUMENTATION: JOB ID: [id number] [employer]- All Rights Reserved
[2017-10-14 20:34] LABS: ANION GAP 11 (5-19); BLOOD UREA NITROGEN 8 mg/dL (7-20); CALCIUM 9.4 mg/dL (8.4-10.2); CARBON DIOXIDE 29 mmol/L (22-30); CHLORIDE 106 mmol/L (98-107); CREATININE RESULT 0.54 mg/dL (0.52-1.25); GLUCOSE 77 mg/dL (75-110); MAGNESIUM 1.7 mg/dL (1.6-2.3); POTASSIUM 3.9 mmol/L (3.6-5.0); SODIUM 145.7 mmol/L (137-145)
--- NOTE | 2017-10-14 21:24 | PDOC CONSULTATION ---
Consultation Consult Date: 10/14/17 Attending physician:: CALVIN HAIDER Consult reason:: Cardiac dysrhythmia History of Present Illness Admission Date/PCP: JOAQUIM MCKEON MD Patient complains of: No complaint. Patient was noted to have cardiac dysrhythmia in the OR History of Present Illness: NORMA SEVILLA is a 47 year old female with breast cancer pending bilateral mastectomy in a couple of weeks. Patient was noted with right upper quadrant abdominal pain and subsequently underwent an ultrasound which demonstrated gallstones. She was scheduled for a laparoscopic cholecystectomy today however upon taking her to the operating room she was noted to be in an A. fib with rapid ventricular rate. With heart rate of 110. Patient has had no symptoms. No shortness of breath and no chest pain. She does not have any known cardiac history in the past although she notes that with her last orthopedic surgery about a year ago she has some cardiac irregularity. Patient is now being admitted for workup of her atrial fib. Her laparoscopic cholecystectomy has been postponed. I saw the patient in the PACU unit. Available EKG strips and EKG shows that patient in sinus rhythm but with frequent APCs and VPCs. With the patient ever went into A. fib is not known or cannot be proven. However it is clear that patient would need to be monitored. Patient was also noted to have an abnormal EKG with a diffusely low voltage QRS and right bundle branch block pattern. On questioning patient admits to having been diagnosed to have sleep apnea but never been on CPAP therapy. Patient also describes previous cardiac irregularity. Patient claims that she has completed a course of chemotherapy for breast cancer. Past Medical History Cardiac Medical History: Denies: Coronary Artery Disease, Myocardial Infarction, Hypertension Pulmonary Medical History: Reports: Sleep Apnea Denies: Asthma, Bronchitis, Chronic Obstructive Pulmonary Disease (COPD), Pneumonia Neurological Medical History: Denies: Seizures Endocrine Medical History: Reports: Hypothyroidism Malignancy Medical History: Reports: Breast Cancer - left breast cancer metastatic to the axilla status post neoadjuvant therapy GI Medical History: Reports: Other - Gallstones Musculoskeltal Medical History: Reports: Arthritis - hands and knees Psychiatric Medical History: Reports: Depression Hematology: Reports: Anemia - with period Past Surgical History Past Surgical History: Reports: Orthopedic Surgery - R SHOULDER REPLACEMENT, Thyroidectomy, Tubal Ligation Social History Information Source: Patient Smoking Status: Former Smoker - Advance Directive Resuscitation Status: Full Code Surrogate healthcare decision maker:: Patient's Family History Family History: Hypertension Parental Family History Reviewed: Yes Children Family History Reviewed: Yes Sibling(s) Family History Reviewed.: Yes - Negative for premature coronary artery disease or sudden cardiac in the family amongst first degree relatives. Medication/Allergy Home Medications: Levothyroxine Sodium [Synthroid] 200 mcg PO DAILY 04/25/16 Sertraline HCl [Zoloft 50 mg Tablet] 1 tab PO QHS 04/25/16 Oxycodone HCl/Acetaminophen [Percocet 5-325 mg Tablet] 1 tab PO ASDIR PRN #25 tablet 05/20/17 Alprazolam [Xanax] 0.5 mg PO ASDIR PRN 10/13/17 Gabapentin 300 mg PO TID 10/13/17 Vitamin B Complex 1 each PO ASDIR PRN 10/13/17 Ibuprofen 1 tab PO Q6 PRN 10/14/17 Allergies/Adverse Reactions: hydrocodone Adverse Reaction (Verified 10/14/17 15:31) Review of Systems Review of Systems: Please see history of present illness and past medical history as wall. Constitutional: No fever or chills reported. Head : No recent chronic headaches, recent head injury. Eyes: No recent eye pain, diplopia, redness, discharge, acute visual changes. Ears: No recent chronic ear pain, acute hearing loss, ear discharge. Oral cavity: No recent ulcerations, bleeding, oral cavity discomfort. Neck: No recent acute neck pain reported. Hematologic: No recent easy bruising or bleeding or hematologic malignancy reported. Lymphatic: No recent lymphatic malignancy, chronic lymphadenopathy reported yet Cardiovascular system review: See history of present illness. Respiratory system review: No recent chronic cough, hemoptysis, blood clots in the lungs reported. Mild Shortness of breath on exertion. Patient has noted occasional pedal edema. Gastrointestinal system review: Negative for any recent acute or chronic abdominal pain, hematemesis, melena, recent change in bowel habits. Genitourinary system review: No recent acute or chronic hematuria, flank pain, UTI etc. reported. Skin system review: Negative for any recent abnormal bruising, no rash, no pruritus reported. Neurologic: No prior history of strokes, mini strokes, seizure disorder. Psychologic: No history of major psychosis or major depression reported. Musculoskeletal: Minor aches and pains reported. No acute joint swelling reported. Endocrine: No recent polyuria, polydipsia, recent heat or cold intolerance. Physical Exam Vital Signs: Temp Pulse Resp BP Pulse Ox 98.4 F 97 16 135/81 H 100 10/14/17 14:45 10/14/17 14:45 10/14/17 14:45 10/14/17 14:45 10/14/17 14:45 Intake & Output 10/13/17 10/14/17 10/15/17 06:59 06:59 06:59 Intake Total 1000 Output Total 400 Balance 600 Weight 108.86 kg 108.86 kg Exam: GENERAL: well-nourished and in no acute distress. Alert and oriented x3 HEAD: Atraumatic, normocephalic. EYES: Pupils equal round and reactive to light, extraocular movements intact, sclera anicteric, conjunctiva are normal. ENT: TMs normal, nares patent, oropharynx clear without exudates. Moist mucous membranes. No oral ulcerations or bleeding gums noted NECK: supple without lymphadenopathy. Trachea is central. No cervical or axillary lymphadenopathy noted. Carotids are 2+, JVD WNL LUNGS: Respiration seems nonlabored, no significant accessory muscle action noted. Breath sounds clear to auscultation bilaterally and equal noted. No wheezes rales or rhonchi noted. No significant dullness noted on percussion. CHEST: Palpation of the chest wall shows no significant chest wall tenderness. No other significant abnormalities noted. HEART: [employer], No PSH, 1/6 ISABELLE aortic area, 1/6 goldman systolic murmur mitral area, no rubs, no gallops. ABDOMEN: Soft, no significant tenderness appreciated, normoactive bowel sounds. No guarding, no rebound. No rigidity noted . No masses appreciated. EXTREMITIES: Pedal pulses are 1-2+, no calf tenderness noted. No clubbing or cyanosis.trace to 1+ pedal edema noted NEUROLOGICAL: Focused neurological exam showed no significant neurologic deficit. Normal speech, no focal weakness appreciated. PSYCH: Normal mood, normal affect. Judgment and insight within normal limits. SKIN: No significant ecchymosis, rash, ulcerations or signs of pruritus noted. MUSCULOSKELETAL EXAM: No significant joint swelling noted. Results Laboratory Results: 10/14/17 15:59 10/14/17 20:02 10/14/17 10/14/17 10/14/17 15:59 15:59 15:59 WBC 2.7 L RBC 4.00 Hgb 11.1 L Hct 34.3 L MCV 86 MCH 27.7 MCHC 32.4 RDW 15.6 H Plt Count 203 Seg Neutrophils % 67.1 Lymphocytes % 20.9 Monocytes % 9.2 Eosinophils % 1.4 Basophils % 1.4 Absolute Neutrophils 1.8 Absolute Lymphocytes 0.6 Absolute Monocytes 0.3 Absolute Eosinophils 0.0 Absolute Basophils 0.0 Sodium 146.9 H Potassium 3.9 Chloride 106 Carbon Dioxide 30 Anion Gap 11 BUN 8 Creatinine 0.62 Est GFR ( Amer) > 60 Est GFR (Non-Af Amer) > 60 Glucose 82 Calcium 9.5 Phosphorus 5.2 H Magnesium 1.9 Total Bilirubin 0.5 AST 24 ALT 33 Alkaline Phosphatase 52 Total Protein 6.9 Albumin 4.4 10/14/17 10/14/17 15:59 20:02 WBC RBC Hgb Hct MCV MCH MCHC RDW Plt Count Seg Neutrophils % Lymphocytes % Monocytes % Eosinophils % Basophils % Absolute Neutrophils Absolute Lymphocytes Absolute Monocytes Absolute Eosinophils Absolute Basophils Sodium 147.2 H 145.7 H Potassium 4.0 3.9 Chloride 106 106 Carbon Dioxide 29 29 Anion Gap 12 11 BUN 8 Creatinine 0.54 Est GFR ( Amer) > 60 Est GFR (Non-Af Amer) > 60 Glucose 77 Calcium 9.4 Phosphorus Magnesium 1.7 Total Bilirubin AST ALT Alkaline Phosphatase Total Protein Albumin 10/14/17 10/14/17 19:30 20:02 Troponin I < 0.012 NT-Pro-B Natriuret Pep 167 H EKG Comments: Multiple EKGs and rhythm strips reviewed. It showed frequent APCs, VPCs, sinus rhythm, low voltage QRS and right bundle branch block pattern. Impressions: Chest X-Ray 10/14/17 00:00 IMPRESSION: HEART ENLARGED WITHOUT FAILURE. NO OTHER SIGNIFICANT RADIOGRAPHIC FINDING IN THE CHEST. Assessment & Plan - Diagnosis (1) Abnormal EKG Is this a current diagnosis for this admission?: Yes (2) Cardiac dysrhythmia, unspecified Qualifiers: Arrhythmia type: other cardiac arrhythmia Qualified Code(s): I49.8 - Other specified cardiac arrhythmias Is this a current diagnosis for this admission?: Yes (3) Sleep apnea syndrome Qualifiers: Sleep apnea type: unspecified type Qualified Code(s): G47.30 - Sleep apnea , unspecified Is this a current diagnosis for this admission?: Yes (4) Obesity Qualifiers: Obesity type: unspecified obesity type Is this a current diagnosis for this admission?: Yes (5) Gallstones and inflammation of gallbladder without obstruction Is this a current diagnosis for this admission?: Yes - Notes Notes: Preop cardiovascular evaluation: Patient certainly has an abnormal EKG with low QRS voltage but she has been relatively asymptomatic without any chest pain or any significant dyspnea. Patient was noted to have some cardiac dysrhythmia. At this point will start patient on metoprolol succinate. Will check lipid panel and also order a 2D echo. Cardiac dysrhythmia: Patient noted to have frequent ventricular ectopy. Will check electrolytes and magnesium level. Have started patient on beta-swapnil therapy. Sleep apnea syndrome: Sleep apnea syndrome can cause cardiac dysrhythmia. This will be evaluated as an outpatient. Obesity: To be evaluated as an outpatient. Gallstones with cholecystitis. Patient was supposed to undergo gallbladder surgery but this was postponed. Hopefully patient could have surgery tomorrow. Breast cancer: I am told by the surgeon that breast cancer surgery is fairly urgent and needs to be performed within the next 2-3 weeks. Will try optimize medical management for this patient. - Time Time Spent: 30 to 50 Minutes - CODE STATUS was discussed, patient remains full code. Surrogate decision-maker patient's . Multiple medical problems were addressed. More than 50% of the time spent coordinating care, discussing management plans with involved caregivers. Management plans discussed with involved personnels. Medical decision making was of moderate to high complexity , patient's has multiple comorbidities. Medications reviewed and adjusted accordingly: Yes
[2017-10-14] MEDS: CEFAZOLIN 1 GM/D5W RTU 1 GM/50 ML RTUPB IV PRN ×7 (21:53→22:01)
[2017-10-14] MEDS ORDERED: SERTRALINE HCL 50 MG TABLET PO SCH (22:00)
--- NOTE | 2017-10-14 22:01 | XCELERA REPORT ---
[address] [address] Transthoracic Echocardiogram Report Name: NORMA SEVILLA Age: 47 yrs Gender: Female : 1970 Patient Status: Outpatient Patient Location: [address] [place] [address] Study Date: 10/14/2017 08:48 PM Height: 65 in Weight: 239 lb BSA: 2.1 m2 Procedure: A complete two-dimensional transthoracic echocardiogram was performed (2D, M-mode, spectral and color flow Doppler). The study was technically difficult with many images being suboptimal in quality. Reason For Study: cardiac dysrhymia, cardiomyopathy Ordering Physician: ELISA WHITEHEAD Performed By: Luzma Chan Interpretation Summary The left ventricular ejection fraction is normal. There is mild concentric left ventricular hypertrophy. The left ventricle is grossly normal size. Doppler measurements suggest pseudonormalized left ventricular relaxation, which is associated with grade II/IV or mild to moderate diastolic dysfunction Wall motion cannot be accurately commented on, but no definite regional wall motion abnormalities noted. The right ventricle is borderline dilated. The right ventricular systolic function is normal. The right atrium is normal in size The left atrial size is normal. There is a trace amount of mitral regurgitation There is no mitral valve stenosis. No aortic regurgitation is present. There is no aortic valve stenosis There is a trace or physiologic amount of tricuspid regurgitation Tricuspid regurgitation jet envelope not well defined to measure RV systolic pressure accurately. The aortic root is not well visualized. The inferior vena cava was not well visualized There is no pericardial effusion. MMode/2D Measurements & Calculations RVDd: 2.7 cm LVIDd: 5.2 cmFS: 33.6 % Ao root diam: 3.3 cm IVSd: 1.2 cm LVIDs: 3.5 cmEDV(Teich): 130.2 ml LVPWd: 1.2 cmESV(Teich): 49.6 ml Ao root area: 8.6 cm2 EF(Teich): 61.9 % LA dimension: 3.1 cm LVOT diam: 2.5 cm LVOT area: 5.1 cm2 Doppler Measurements & Calculations MV E max latisha: MV P1/2t max latisha: Ao V2 max: LV V1 max P.3 cm/sec 48.0 cm/sec 125.5 cm/sec 2.9 mmHg MV A max latisha: MV P1/2t: 71.1 msec Ao max PG: LV V1 max: 62.7 cm/sec MVA(P1/2t): 3.1 cm2 6.3 mmHg 85.8 cm/sec MV E/A: 0.77 MV dec slope: CARLOS(V,D): 3.5 cm2 197.6 cm/sec2 PA V2 max: TR max latisha: 73.5 cm/sec 194.9 cm/sec PA max PG: TR max P.2 mmHg 2.2 mmHg Left Ventricle The left ventricle is grossly normal size. There is mild concentric left ventricular hypertrophy. The left ventricular ejection fraction is normal. Doppler measurements suggest pseudonormalized left ventricular relaxation, which is associated with grade II/IV or mild to moderate diastolic dysfunction. Wall motion cannot be accurately commented on, but no definite regional wall motion abnormalities noted. Right Ventricle The right ventricle is borderline dilated. There is normal right ventricular wall thickness. The right ventricular systolic function is normal. Atria The right atrium is normal in size. The left atrial size is normal. Interarterial septum not well visualized and not well dopplered. Cannot comment on ASD/PFO presence. Mitral Valve The mitral valve is grossly normal. There is no mitral valve stenosis. There is a trace amount of mitral regurgitation. Aortic Valve The aortic valve is grossly normal. There is no aortic valve stenosis. No aortic regurgitation is present. Tricuspid Valve The tricuspid valve is not well visualized secondary to technical limitations. There is no tricuspid stenosis. There is a trace or physiologic amount of tricuspid regurgitation. Tricuspid regurgitation jet envelope not well defined to measure RV systolic pressure accurately. Pulmonic Valve The pulmonic valve is not well visualized. Great Vessels The aortic root is not well visualized. The inferior vena cava was not well visualized. Effusions There is no pericardial effusion. : ELISA WHITEHEAD > Elisa Whitehead
[2017-10-14] MEDS: NORMAL SALINE 1000 ML 1,000 ML IV PRN (22:03)
[2017-10-14] MEDS: SERTRALINE HCL 50 MG TABLET PO SCH (22:14)
[2017-10-14 22:39] LABS: CHOLESTEROL 162.03 mg/dL (0-200); Direct HDL 76 mg/dL (>40); MAGNESIUM 1.7 mg/dL (1.6-2.3); TRIGLYCERIDES 59 mg/dL (<150)
[2017-10-14 22:50] LABS: DIRECT LDL 72 mg/dL (<100)
[2017-10-15] MEDS ORDERED: LEVOTHYROXINE SODIUM 0.1 MG TABLET PO SCH (06:00)
[2017-10-15] MEDS: NORMAL SALINE 1000 ML 1,000 ML IV PRN ×2 (08:52→22:11)
--- NOTE | 2017-10-15 09:31 | EKG REPORT ---
SEVERITY:- ABNORMAL ECG - SINUS TACHYCARDIA MULTIFORM VENTRICULAR PREMATURE COMPLEXES PROBABLE LEFT ATRIAL ABNORMALITY PROBABLE INFERIOR INFARCT, OLD : Confirmed by: Elisa Ceballos 15-Oct-2017 09:30:57
--- NOTE | 2017-10-15 09:31 | EKG REPORT ---
SEVERITY:- ABNORMAL ECG - SINUS RHYTHM PROBABLE LEFT ATRIAL ABNORMALITY LEFT AXIS DEVIATION ANTEROLATERAL , INFERIOR INFARCT, AGE INDETERMINATE : Confirmed by: Elisa Ceballos 15-Oct-2017 09:30:44
[2017-10-15] MEDS ORDERED: GABAPENTIN 300 MG CAPSULE PO SCH ×2 (10:00→14:00)
[2017-10-15 10:55] LABS: FREE T3 4.17 pg/mL (2.77-5.27)
[2017-10-15] MEDS: SPIRONOLACTONE 25 MG TABLET PO SCH (10:59)
[2017-10-15] MEDS: METOPROLOL SUCCINATE 25 MG TAB.SR.24H PO SCH ×2 (10:59→22:06)
[2017-10-15] MEDS: ENOXAPARIN SODIUM INJ 40 MG/0.4 ML DISP.SYRIN SUBCUT SCH (11:00)
[2017-10-15] MEDS ORDERED: BUPIVACAINE HCL 0.25 % INJ/PF (2.5 MG/1 ML) 30 ML VIAL ONE (12:15)
[2017-10-15] MEDS ORDERED: CEFAZOLIN INJ 1 GM VIAL ONE (12:35)
[2017-10-15] MEDS ORDERED: MIDAZOLAM 2 MG/2 ML INJ ONE (13:00)
[2017-10-15] MEDS ORDERED: FENTANYL CITRATE INJ/PF 100 MCG/2 ML AMPUL ONE (13:00)
[2017-10-15] MEDS ORDERED: ACETAMINOPHEN 100 ML IV ONE (13:01)
[2017-10-15] MEDS ORDERED: PROPOFOL INJ 200 MG/20 ML VIAL IV ONE (13:01)
[2017-10-15] MEDS ORDERED: MORPHINE SULFATE 10 MG/ML INJ ONE (13:01)
--- NOTE | 2017-10-15 13:47 | PDOC PROGRESS REPORT ---
Subjective Progress Note for:: 10/15/17 Subjective:: Feels well. No chest pain no shortness of breath. No lightheadedness Physical Exam Vital Signs: Temp Pulse Resp BP Pulse Ox 98.5 F 67 18 119/62 97 10/15/17 12:50 10/15/17 12:50 10/15/17 12:50 10/15/17 12:50 10/15/17 12:50 Intake & Output 10/14/17 10/15/17 10/16/17 06:59 06:59 06:59 Intake Total 2578 Output Total 1100 Balance 1478 Weight 108.86 kg 106 kg General appearance: PRESENT: no acute distress, cooperative Respiratory exam: PRESENT: clear to auscultation tank Cardiovascular exam: PRESENT: RRR GI/Abdominal exam: PRESENT: other - Soft, nondistended, nontender to palpation. Extremities exam: PRESENT: other - No swelling. Results Laboratory Results: 10/14/17 15:59 10/14/17 20:02 10/14/17 10/14/17 10/14/17 15:59 15:59 15:59 WBC 2.7 L RBC 4.00 Hgb 11.1 L Hct 34.3 L MCV 86 MCH 27.7 MCHC 32.4 RDW 15.6 H Plt Count 203 Seg Neutrophils % 67.1 Lymphocytes % 20.9 Monocytes % 9.2 Eosinophils % 1.4 Basophils % 1.4 Absolute Neutrophils 1.8 Absolute Lymphocytes 0.6 Absolute Monocytes 0.3 Absolute Eosinophils 0.0 Absolute Basophils 0.0 Sodium 146.9 H Potassium 3.9 Chloride 106 Carbon Dioxide 30 Anion Gap 11 BUN 8 Creatinine 0.62 Est GFR ( Amer) > 60 Est GFR (Non-Af Amer) > 60 Glucose 82 Calcium 9.5 Phosphorus 5.2 H Magnesium 1.9 Total Bilirubin 0.5 AST 24 ALT 33 Alkaline Phosphatase 52 Total Protein 6.9 Albumin 4.4 Triglycerides Cholesterol LDL Cholesterol Direct VLDL Cholesterol HDL Cholesterol TSH Free T4 Free T3 pg/mL 10/14/17 10/14/17 10/14/17 15:59 20:02 20:02 WBC RBC Hgb Hct MCV MCH MCHC RDW Plt Count Seg Neutrophils % Lymphocytes % Monocytes % Eosinophils % Basophils % Absolute Neutrophils Absolute Lymphocytes Absolute Monocytes Absolute Eosinophils Absolute Basophils Sodium 147.2 H 145.7 H Potassium 4.0 3.9 Chloride 106 106 Carbon Dioxide 29 29 Anion Gap 12 11 BUN 8 Creatinine 0.54 Est GFR ( Amer) > 60 Est GFR (Non-Af Amer) > 60 Glucose 77 Calcium 9.4 Phosphorus Magnesium 1.7 Total Bilirubin AST ALT Alkaline Phosphatase Total Protein Albumin Triglycerides Cholesterol LDL Cholesterol Direct VLDL Cholesterol HDL Cholesterol TSH 0.26 L Free T4 Free T3 pg/mL 10/14/17 10/15/17 20:02 07:44 WBC RBC Hgb Hct MCV MCH MCHC RDW Plt Count Seg Neutrophils % Lymphocytes % Monocytes % Eosinophils % Basophils % Absolute Neutrophils Absolute Lymphocytes Absolute Monocytes Absolute Eosinophils Absolute Basophils Sodium Potassium Chloride Carbon Dioxide Anion Gap BUN Creatinine Est GFR ( Amer) Est GFR (Non-Af Amer) Glucose Calcium Phosphorus Magnesium 1.7 Total Bilirubin AST ALT Alkaline Phosphatase Total Protein Albumin Triglycerides 59 Cholesterol 162.03 LDL Cholesterol Direct 72 VLDL Cholesterol 12.0 HDL Cholesterol 76 TSH Free T4 1.54 Free T3 pg/mL 4.17 10/14/17 10/14/17 10/15/17 19:30 20:02 01:10 Troponin I < 0.012 0.013 NT-Pro-B Natriuret Pep 167 H 10/15/17 07:44 Troponin I < 0.012 NT-Pro-B Natriuret Pep Impressions: Chest X-Ray 10/14/17 00:00 IMPRESSION: HEART ENLARGED WITHOUT FAILURE. NO OTHER SIGNIFICANT RADIOGRAPHIC FINDING IN THE CHEST. Assessment & Plan - Diagnosis (1) Atrial fibrillation with RVR Is this a current diagnosis for this admission?: Yes (2) Gallstones Is this a current diagnosis for this admission?: Yes Plan: Patient underwent cardiology evaluation. It appears the patient did not have atrial fib however she had frequent PVCs. She has been placed on beta-swapnil and she is in normal sinus rhythm. She underwent echo cardiogram which demonstrated preserved LV fraction. Patient has been cleared by cardiology to undergo cholecystectomy. We will proceed with her laparoscopic cholecystectomy today.
[2017-10-15] MEDS ORDERED: PROMETHAZINE HCL INJ 25 MG/1 ML VIAL IV PRN ×2 (14:00)
[2017-10-15] MEDS ORDERED: FENTANYL CITRATE INJ/PF 100 MCG/2 ML AMPUL IV PRN ×3 (14:00)
[2017-10-15] MEDS ORDERED: MEPERIDINE HCL/PF INJ 25 MG/1 ML DISP.SYRIN IV PRN (14:00)
[2017-10-15] MEDS ORDERED: DIPHENHYDRAMINE HCL 50 MG/ML VIAL IV PRN (14:00)
[2017-10-15] MEDS ORDERED: ONDANSETRON HCL INJ/PF 4 MG/2 ML SDV IV PRN (15:12)
[2017-10-15] MEDS ORDERED: MORPHINE SULFATE 10 MG/ML INJ IV PRN (15:12)
--- NOTE | 2017-10-15 15:12 | Operative Report ---
Operative Report DATE OF SURGERY: 10/15/17 PREOPERATIVE DIAGNOSIS: Symptomatic cholelithiasis POSTOPERATIVE DIAGNOSIS: Symptomatic cholelithiasis OPERATION: Laparoscopic cholecystectomy SURGEON: CALVIN HAIDER ANESTHESIA: GA TISSUE REMOVED OR ALTERED: gallbladder COMPLICATIONS: None ESTIMATED BLOOD LOSS: Minimal INTRAOPERATIVE FINDINGS: Multiple gallstones PROCEDURE: Informed consent was obtained. Patient was brought to the operating room placed operating table in supine position. After satisfactory induction of general anesthesia, patient's abdomen was prepped and draped in usual sterile fashion. A supraumbilical midline incision was made and dissection carried down to the fascia the peritoneal cavity entered without difficulty. Mckay trocar was inserted. Pneumoperitoneum produced good patient toleration. 5 mm trocar was placed in the subxiphoid location.Two 5 mm trochars were placed in the right subcostal location. The gallbladder was encased with omentum which was peeled off taking great care to avoid injury to the underlying transverse colon and duodenum. The liver appeared normal. The anterior abdominal wall appeared normal. The gallbladder was grasped and retracted cephalad over the dome of the liver. The infundibulum of the gallbladder was grasped retracted laterally and inferiorly thus exposing calot's triangle. The cystic duct gallbladder junction was clearly identified and the cystic duct was clipped and divided. Cystic artery was likewise taken. There was a posterior branch of the cystic artery which was also clipped and divided. The gallbladder was taken off the gallbladder bed using the hook electrocautery technique. The gallbladder was removed with an Endobag through the Mckay trocar site fascial defect. Hemostasis appeared excellent. All trochars were removed under the direct vision a laparoscope to ensure hemostasis. The Mckay trocar site fascial defect was closed with interrupted Vicryl sutures. All skin incisions were closed with subcuticular interrupted Monocryl sutures. Marcaine was injected at the port sites. Patient tolerated procedure well no apparent complications and was taken to the recovery area in stable condition.
--- NOTE | 2017-10-15 15:50 | PDOC PROGRESS REPORT ---
Subjective Progress Note for:: 10/15/17 Subjective:: Feels well. No complaints Physical Exam Vital Signs: Temp Pulse Resp BP Pulse Ox 98.5 F 67 18 119/62 97 10/15/17 12:50 10/15/17 12:50 10/15/17 12:50 10/15/17 12:50 10/15/17 12:50 Intake & Output 10/14/17 10/15/17 10/16/17 06:59 06:59 06:59 Intake Total 2578 250 Output Total 1100 250 Balance 1478 0 Weight 108.86 kg 106 kg General appearance: PRESENT: no acute distress, cooperative Respiratory exam: PRESENT: clear to auscultation tank Cardiovascular exam: PRESENT: RRR GI/Abdominal exam: PRESENT: other - Soft, nondistended, minimal tenderness. Musculoskeletal exam: PRESENT: other - No swelling Results Laboratory Results: 10/14/17 15:59 10/14/17 20:02 10/14/17 10/14/17 10/14/17 15:59 15:59 15:59 WBC 2.7 L RBC 4.00 Hgb 11.1 L Hct 34.3 L MCV 86 MCH 27.7 MCHC 32.4 RDW 15.6 H Plt Count 203 Seg Neutrophils % 67.1 Lymphocytes % 20.9 Monocytes % 9.2 Eosinophils % 1.4 Basophils % 1.4 Absolute Neutrophils 1.8 Absolute Lymphocytes 0.6 Absolute Monocytes 0.3 Absolute Eosinophils 0.0 Absolute Basophils 0.0 Sodium 146.9 H Potassium 3.9 Chloride 106 Carbon Dioxide 30 Anion Gap 11 BUN 8 Creatinine 0.62 Est GFR ( Amer) > 60 Est GFR (Non-Af Amer) > 60 Glucose 82 Calcium 9.5 Phosphorus 5.2 H Magnesium 1.9 Total Bilirubin 0.5 AST 24 ALT 33 Alkaline Phosphatase 52 Total Protein 6.9 Albumin 4.4 Triglycerides Cholesterol LDL Cholesterol Direct VLDL Cholesterol HDL Cholesterol TSH Free T4 Free T3 pg/mL 10/14/17 10/14/17 10/14/17 15:59 20:02 20:02 WBC RBC Hgb Hct MCV MCH MCHC RDW Plt Count Seg Neutrophils % Lymphocytes % Monocytes % Eosinophils % Basophils % Absolute Neutrophils Absolute Lymphocytes Absolute Monocytes Absolute Eosinophils Absolute Basophils Sodium 147.2 H 145.7 H Potassium 4.0 3.9 Chloride 106 106 Carbon Dioxide 29 29 Anion Gap 12 11 BUN 8 Creatinine 0.54 Est GFR ( Amer) > 60 Est GFR (Non-Af Amer) > 60 Glucose 77 Calcium 9.4 Phosphorus Magnesium 1.7 Total Bilirubin AST ALT Alkaline Phosphatase Total Protein Albumin Triglycerides Cholesterol LDL Cholesterol Direct VLDL Cholesterol HDL Cholesterol TSH 0.26 L Free T4 Free T3 pg/mL 10/14/17 10/15/17 20:02 07:44 WBC RBC Hgb Hct MCV MCH MCHC RDW Plt Count Seg Neutrophils % Lymphocytes % Monocytes % Eosinophils % Basophils % Absolute Neutrophils Absolute Lymphocytes Absolute Monocytes Absolute Eosinophils Absolute Basophils Sodium Potassium Chloride Carbon Dioxide Anion Gap BUN Creatinine Est GFR ( Amer) Est GFR (Non-Af Amer) Glucose Calcium Phosphorus Magnesium 1.7 Total Bilirubin AST ALT Alkaline Phosphatase Total Protein Albumin Triglycerides 59 Cholesterol 162.03 LDL Cholesterol Direct 72 VLDL Cholesterol 12.0 HDL Cholesterol 76 TSH Free T4 1.54 Free T3 pg/mL 4.17 10/14/17 10/14/17 10/15/17 19:30 20:02 01:10 Troponin I < 0.012 0.013 NT-Pro-B Natriuret Pep 167 H 10/15/17 07:44 Troponin I < 0.012 NT-Pro-B Natriuret Pep Impressions: Chest X-Ray 10/14/17 00:00 IMPRESSION: HEART ENLARGED WITHOUT FAILURE. NO OTHER SIGNIFICANT RADIOGRAPHIC FINDING IN THE CHEST. Assessment & Plan - Diagnosis (1) Atrial fibrillation with RVR Is this a current diagnosis for this admission?: Yes (2) Gallstones Is this a current diagnosis for this admission?: Yes Plan: Status post laparoscopic cholecystectomy. Patient did well. Will observe in the hospital in light of her cardiac arrhythmias yesterday. We will plan to discharge patient home in the morning.
[2017-10-15] MEDS ORDERED: ALPRAZOLAM 0.25 MG TABLET PO PRN (18:16)
[2017-10-15] MEDS ORDERED: (PENDING PHARMACY ID) (Zolpidem Tartrate [Ambien] 10 MG) PO PRN (18:16)
[2017-10-15] MEDS ORDERED: ZOLPIDEM TARTRATE 5 MG TABLET PO PRN (18:22)
[2017-10-15] MEDS: GABAPENTIN 100 MG CAPSULE PO SCH (22:05)
[2017-10-15] MEDS: SERTRALINE HCL 50 MG TABLET PO SCH (22:06)
[2017-10-15] MEDS: OXYCODONE-ACETAMINOPHEN 5-325 MG TABLET PO PRN (23:14)
[2017-10-16] MEDS ORDERED: LEVOTHYROXINE SODIUM 0.1 MG TABLET PO SCH (06:00)
[2017-10-16] MEDS ORDERED: ONDANSETRON HCL INJ/PF 4 MG/2 ML SDV IV PRN (07:30)
[2017-10-16] MEDS ORDERED: ZOLPIDEM TARTRATE 5 MG TABLET PO PRN (08:00)
[2017-10-16] MEDS: SPIRONOLACTONE 25 MG TABLET PO SCH (09:08)
--- NOTE | 2017-10-16 09:08 | PDOC PROGRESS REPORT ---
Subjective Progress Note for:: 10/16/17 Subjective:: Feels well. No complaints. Physical Exam Vital Signs: Temp Pulse Resp BP Pulse Ox 98.4 F 61 17 107/57 L 99 10/16/17 06:01 10/16/17 07:00 10/16/17 06:01 10/16/17 06:01 10/16/17 06:01 Intake & Output 10/15/17 10/16/17 10/17/17 06:59 06:59 06:59 Intake Total 2578 4916 Output Total 1100 855 Balance 1478 4061 Weight 106 kg 106.2 kg General appearance: PRESENT: no acute distress, cooperative Respiratory exam: PRESENT: clear to auscultation tank Cardiovascular exam: PRESENT: RRR GI/Abdominal exam: PRESENT: other - Soft, nondistended, nontender to palpation. Musculoskeletal exam: PRESENT: other - No swelling Results Laboratory Results: 10/14/17 15:59 10/14/17 20:02 10/15/17 07:44 Free T4 1.54 Free T3 pg/mL 4.17 10/14/17 10/14/17 10/15/17 19:30 20:02 01:10 Troponin I < 0.012 0.013 NT-Pro-B Natriuret Pep 167 H 10/15/17 07:44 Troponin I < 0.012 NT-Pro-B Natriuret Pep Impressions: Chest X-Ray 10/14/17 00:00 IMPRESSION: HEART ENLARGED WITHOUT FAILURE. NO OTHER SIGNIFICANT RADIOGRAPHIC FINDING IN THE CHEST. Assessment & Plan - Diagnosis (1) Atrial fibrillation with RVR Is this a current diagnosis for this admission?: Yes (2) Gallstones Is this a current diagnosis for this admission?: Yes Plan: Status post laparoscopic cholecystectomy. Patient did well. DC home.
[2017-10-16] MEDS: GABAPENTIN 100 MG CAPSULE PO SCH (09:09)
[2017-10-16] MEDS: ENOXAPARIN SODIUM INJ 40 MG/0.4 ML DISP.SYRIN SUBCUT SCH (09:10)
--- NOTE | 2017-10-16 09:15 | EKG REPORT ---
SEVERITY:- ABNORMAL ECG - SINUS ARRHYTHMIA, RATE 46-61 INFERIOR INFARCT, OLD : Confirmed by: Elisa Ceballos 16-Oct-2017 09:14:50
[2017-10-16] MEDS: OXYCODONE-ACETAMINOPHEN 5-325 MG TABLET PO PRN (09:19)
--- NOTE | 2017-10-16 09:43 | DISCHARGE SUMMARY E ---
Discharge Summary NAME: NORMA SEVILLA : 1970 AGE: 47Y ADMITTED: 10/14/2017 DISCHARGED: 10/16/2017 DISCHARGE DIAGNOSES: 1. Premature ventricular contractions. 2. Symptomatic cholelithiasis. PROCEDURE PERFORMED DURING HOSPITALIZATION: Laparoscopic cholecystectomy performed by Dr. Sarah Haider on 10/15/2017. HOSPITAL COURSE: Patient was scheduled for her laparoscopic cholecystectomy on 10/14/2017; however, she was noted with cardiac dysrhythmia. It appeared to be atrial fib with rapid ventricular rate; however, on 12-lead EKG it appeared to be sinus rhythm with frequent premature ventricular contractions as well as atrial premature contractions. She was also noted to have diffuse low-voltage QRS and a right bundle branch block. Surgery was canceled. She underwent cardiology evaluation. She ruled out for a myocardial infarction. She had no symptoms during her hospital stay, no chest pain, no shortness of breath, no presyncopal symptoms. She underwent an echocardiogram which demonstrated normal left ventricular ejection fraction. Cardiology felt that she was fit to undergo surgery. They did begin her on a beta swapnil which she tolerated very well. She was subsequently taken to surgery where she underwent her laparoscopic cholecystectomy. She did well postoperatively. She had minimal pain, was tolerating a diet well and had stable vital signs at the time of discharge. The patient is now being discharged to home in good condition. She will follow up with me next week. DISCHARGE MEDICATIONS: 1. Xanax 0.25 mg p.o. every 12 hours p.r.n. 2. Gabapentin 100 mg p.o. every 12 hours. 3. Synthroid 200 mcg p.o. daily. 4. Toprol XL 25 mg 1 p.o. every 12 hours. 5. Zoloft 50 mg p.o. daily. 6. Aldactone 25 mg daily. 7. Vitamin B complex 1 capsule daily. 8. Ambien 10 mg p.o. at bedtime p.r.n. 9. Percocet 1 p.o. every 4 hours p.r.n. pain. DISCHARGE INSTRUCTIONS: The patient is encouraged to stay active at home but avoid strenuous activity. She may follow a low-fat diet at home. I will see her back for followup in my office in a week and will plan her breast cancer surgery in 2 weeks if she continues to do well. DICTATING PHYSICIAN: SARAH HAIDER M.D. [id number] PHY#: [id number] ID: [id number] JOB#: [id number] ACCT: [id number] cc:SARAH HAIDER M.D. >
[2017-10-16 09:55] VITALS: BP 111/58
[2017-10-16] MEDS ORDERED: SERTRALINE HCL 50 MG TABLET PO SCH (10:00)
[2017-10-16] MEDS: METOPROLOL SUCCINATE 25 MG TAB.SR.24H PO SCH (10:00)
--- NOTE | 2017-10-19 19:11 | PDOC PROGRESS REPORT ---
Subjective Progress Note for:: 10/15/17 Subjective:: Patient seen in the morning prior to surgery. 2D echo results were reviewed. Patient was cleared for surgery. Physical Exam Vital Signs: Temp Pulse Resp BP Pulse Ox 98.4 F 63 16 115/71 98 10/15/17 08:00 10/15/17 08:00 10/15/17 08:00 10/15/17 08:00 10/15/17 08:00 Intake & Output 10/14/17 10/15/17 10/16/17 06:59 06:59 06:59 Intake Total 2578 Output Total 1100 Balance 1478 Weight 108.86 kg 106 kg Exam: GENERAL: well-nourished and in no acute distress. Alert and oriented x3 HEAD: Atraumatic, normocephalic. EYES: Pupils equal round and reactive to light, extraocular movements intact, sclera anicteric, conjunctiva are normal. ENT: TMs normal, nares patent, oropharynx clear without exudates. Moist mucous membranes. No oral ulcerations or bleeding gums noted NECK: supple without lymphadenopathy. Trachea is central. No cervical or axillary lymphadenopathy noted. Carotids are 2+, JVD WNL LUNGS: Respiration seems nonlabored, no significant accessory muscle action noted. Breath sounds clear to auscultation bilaterally and equal noted. No wheezes rales or rhonchi noted. No significant dullness noted on percussion. CHEST: Palpation of the chest wall shows no significant chest wall tenderness. No other significant abnormalities noted. 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 ABDOMEN: Soft, minimal right upper quadrant tenderness appreciated, normoactive bowel sounds. No guarding, no rebound. No rigidity noted . No masses appreciated. EXTREMITIES: Pedal pulses are 1-2+, no calf tenderness noted. No clubbing or cyanosis. trace pedal edema noted NEUROLOGICAL: Focused neurological exam showed no significant neurologic deficit. Normal speech, no focal weakness appreciated. PSYCH: Normal mood, normal affect. Judgment and insight within normal limits. SKIN: No significant ecchymosis, rash, ulcerations or signs of pruritus noted. MUSCULOSKELETAL EXAM: No significant joint swelling noted. Results Laboratory Results: 10/14/17 15:59 10/14/17 20:02 10/14/17 10/14/17 10/14/17 15:59 15:59 15:59 WBC 2.7 L RBC 4.00 Hgb 11.1 L Hct 34.3 L MCV 86 MCH 27.7 MCHC 32.4 RDW 15.6 H Plt Count 203 Seg Neutrophils % 67.1 Lymphocytes % 20.9 Monocytes % 9.2 Eosinophils % 1.4 Basophils % 1.4 Absolute Neutrophils 1.8 Absolute Lymphocytes 0.6 Absolute Monocytes 0.3 Absolute Eosinophils 0.0 Absolute Basophils 0.0 Sodium 146.9 H Potassium 3.9 Chloride 106 Carbon Dioxide 30 Anion Gap 11 BUN 8 Creatinine 0.62 Est GFR ( Amer) > 60 Est GFR (Non-Af Amer) > 60 Glucose 82 Calcium 9.5 Phosphorus 5.2 H Magnesium 1.9 Total Bilirubin 0.5 AST 24 ALT 33 Alkaline Phosphatase 52 Total Protein 6.9 Albumin 4.4 Triglycerides Cholesterol LDL Cholesterol Direct VLDL Cholesterol HDL Cholesterol TSH 10/14/17 10/14/17 10/14/17 15:59 20:02 20:02 WBC RBC Hgb Hct MCV MCH MCHC RDW Plt Count Seg Neutrophils % Lymphocytes % Monocytes % Eosinophils % Basophils % Absolute Neutrophils Absolute Lymphocytes Absolute Monocytes Absolute Eosinophils Absolute Basophils Sodium 147.2 H 145.7 H Potassium 4.0 3.9 Chloride 106 106 Carbon Dioxide 29 29 Anion Gap 12 11 BUN 8 Creatinine 0.54 Est GFR ( Amer) > 60 Est GFR (Non-Af Amer) > 60 Glucose 77 Calcium 9.4 Phosphorus Magnesium 1.7 Total Bilirubin AST ALT Alkaline Phosphatase Total Protein Albumin Triglycerides Cholesterol LDL Cholesterol Direct VLDL Cholesterol HDL Cholesterol TSH 0.26 L 10/14/17 20:02 WBC RBC Hgb Hct MCV MCH MCHC RDW Plt Count Seg Neutrophils % Lymphocytes % Monocytes % Eosinophils % Basophils % Absolute Neutrophils Absolute Lymphocytes Absolute Monocytes Absolute Eosinophils Absolute Basophils Sodium Potassium Chloride Carbon Dioxide Anion Gap BUN Creatinine Est GFR ( Amer) Est GFR (Non-Af Amer) Glucose Calcium Phosphorus Magnesium 1.7 Total Bilirubin AST ALT Alkaline Phosphatase Total Protein Albumin Triglycerides 59 Cholesterol 162.03 LDL Cholesterol Direct 72 VLDL Cholesterol 12.0 HDL Cholesterol 76 TSH 10/14/17 10/14/17 10/15/17 19:30 20:02 01:10 Troponin I < 0.012 0.013 NT-Pro-B Natriuret Pep 167 H 10/15/17 07:44 Troponin I < 0.012 NT-Pro-B Natriuret Pep Impressions: Chest X-Ray 10/14/17 00:00 IMPRESSION: HEART ENLARGED WITHOUT FAILURE. NO OTHER SIGNIFICANT RADIOGRAPHIC FINDING IN THE CHEST. Assessment & Plan - Diagnosis (1) Abnormal EKG Is this a current diagnosis for this admission?: Yes (2) Cardiac dysrhythmia, unspecified Qualifiers: Arrhythmia type: other cardiac arrhythmia Qualified Code(s): I49.8 - Other specified cardiac arrhythmias Is this a current diagnosis for this admission?: Yes (3) Sleep apnea syndrome Qualifiers: Sleep apnea type: unspecified type Qualified Code(s): G47.30 - Sleep apnea , unspecified Is this a current diagnosis for this admission?: Yes (4) Obesity Qualifiers: Obesity type: unspecified obesity type Is this a current diagnosis for this admission?: Yes (5) Gallstones and inflammation of gallbladder without obstruction Is this a current diagnosis for this admission?: Yes - Notes Notes: Preop cardiovascular evaluation: Patient cleared for surgery based on echocardiogram report. Cardiac dysrhythmia: This has improved. Electrolytes reviewed. Continue patient on beta-swapnil therapy. Sleep apnea syndrome: Sleep apnea syndrome can cause cardiac dysrhythmia. This will be evaluated as an outpatient. Obesity: To be evaluated as an outpatient. Gallstones with cholecystitis. Patient cleared for gallbladder surgery. Breast cancer: I am told by the surgeon that breast cancer surgery is fairly urgent and needs to be performed within the next 2-3 weeks. Will try optimize medical management for this patient. - Time Time with patient: 15-25 minutes - CODE STATUS was discussed, patient remains full code. Surrogate decision-maker patient's multiple medical problems were addressed. More than 50% of the time spent coordinating care, discussing management plans with involved caregivers. Management plans discussed with involved personnels. Medical decision making was of moderate to high complexity, patient's has multiple comorbidities. Medications reviewed and adjusted accordingly: Yes
--- NOTE | 2017-10-19 19:14 | PDOC PROGRESS REPORT ---
Subjective Progress Note for:: 10/16/17 Subjective:: Patient seen in the morning after surgery. 2D echo results were reviewed with the patient again patient has done well with surgery. Telemetry strips reviewed showed sinus rhythm without any significant dysrhythmia. Physical Exam Vital Signs: Temp Pulse Resp BP Pulse Ox 97.8 F 58 L 17 111/58 L 94 10/16/17 10:03 10/16/17 10:03 10/16/17 10:03 10/16/17 10:03 10/16/17 10:03 Exam: GENERAL: well-nourished and in no acute distress. Alert and oriented x3 HEAD: Atraumatic, normocephalic. EYES: Pupils equal round and reactive to light, extraocular movements intact, sclera anicteric, conjunctiva are normal. ENT: TMs normal, nares patent, oropharynx clear without exudates. Moist mucous membranes. No oral ulcerations or bleeding gums noted NECK: supple without lymphadenopathy. Trachea is central. No cervical or axillary lymphadenopathy noted. Carotids are 2+, JVD WNL LUNGS: Respiration seems nonlabored, no significant accessory muscle action noted. Breath sounds clear to auscultation bilaterally and equal noted. No wheezes rales or rhonchi noted. No significant dullness noted on percussion. CHEST: Palpation of the chest wall shows no significant chest wall tenderness. No other significant abnormalities noted. 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 ABDOMEN: Soft, mild right upper quadrant incisional tenderness appreciated, normoactive bowel sounds. No guarding, no rebound. No rigidity noted . No masses appreciated. EXTREMITIES: Pedal pulses are 1-2+, no calf tenderness noted. No clubbing or cyanosis.trace to 1+ pedal edema noted NEUROLOGICAL: Focused neurological exam showed no significant neurologic deficit. Normal speech, no focal weakness appreciated. PSYCH: Normal mood, normal affect. Judgment and insight within normal limits. SKIN: No significant ecchymosis, rash, ulcerations or signs of pruritus noted. MUSCULOSKELETAL EXAM: No significant joint swelling noted. Results Laboratory Results: 10/14/17 15:59 10/14/17 20:02 10/14/17 10/14/17 10/15/17 19:30 20:02 01:10 Troponin I < 0.012 0.013 NT-Pro-B Natriuret Pep 167 H 10/15/17 07:44 Troponin I < 0.012 NT-Pro-B Natriuret Pep EKG Comments: Twelve-lead EKG postop was reviewed. It showed no significant abnormalities. Impressions: Chest X-Ray 10/14/17 00:00 IMPRESSION: HEART ENLARGED WITHOUT FAILURE. NO OTHER SIGNIFICANT RADIOGRAPHIC FINDING IN THE CHEST. Assessment & Plan - Diagnosis (1) Abnormal EKG Is this a current diagnosis for this admission?: Yes (2) Cardiac dysrhythmia, unspecified Qualifiers: Arrhythmia type: other cardiac arrhythmia Qualified Code(s): I49.8 - Other specified cardiac arrhythmias Is this a current diagnosis for this admission?: Yes (3) Sleep apnea syndrome Qualifiers: Sleep apnea type: unspecified type Qualified Code(s): G47.30 - Sleep apnea , unspecified Is this a current diagnosis for this admission?: Yes (4) Obesity Qualifiers: Obesity type: unspecified obesity type Is this a current diagnosis for this admission?: Yes (5) Gallstones and inflammation of gallbladder without obstruction Is this a current diagnosis for this admission?: Yes - Notes Notes: Postop day 1: Patient has done well. Will sign off. Cardiac dysrhythmia: Continue patient on beta-swapnil therapy. Sleep apnea syndrome: Sleep apnea syndrome can cause cardiac dysrhythmia. This will be evaluated as an outpatient. Obesity: To be evaluated as an outpatient. Gallstones with cholecystitis. Patient was supposed to undergo gallbladder surgery but this was postponed. Hopefully patient could have surgery tomorrow. Breast cancer: I am told by the surgeon that breast cancer surgery is fairly urgent and needs to be performed within the next 2-3 weeks. Patient cleared for this surgery unless some symptoms of breath in between. - Time Time with patient: 15-25 minutes - CODE STATUS was discussed, patient remains full code. Surrogate decision-maker unchanged. Multiple medical problems were addressed. More than 50% of the time spent coordinating care, discussing management plans with involved caregivers. Management plans discussed with involved personnels. Medical decision making was of moderate to high complexity , patient's has multiple comorbidities. Medications reviewed and adjusted accordingly: Yes
== END 2017-10-16 11:10 | disposition home or self-care (01) ==
LOC: OROUT 14:30 → 5 14:30 → EDSTATUS 16:30 → 5 20:52 → OROUT 20:52 → 5 10-16 11:10
PROVIDERS: ADMIT Surgery; ATTEND Surgery
PROC: 0FT44ZZ Resection of Gallbladder, Percutaneous Endoscopic Approach (ICD-10-PCS; principal; 2017-10-15 13:00)
DX: I49.3 Ventricular premature depolarization (principal); K80.10 Calculus of gallbladder with chronic cholecystitis without obstruction; I49.1 Atrial premature depolarization; I45.10 Unspecified right bundle-branch block; G47.30 Sleep apnea, unspecified; C50.912 Malignant neoplasm of unspecified site of left female breast; C79.89 Secondary malignant neoplasm of other specified sites; E03.9 Hypothyroidism, unspecified; E66.9 Obesity, unspecified; Z79.899 Other long term (current) drug therapy; Z87.891 Personal history of nicotine dependence; Z82.49 Family history of ischemic heart disease and other diseases of the circulatory system; Z68.39 Body mass index [BMI] 39.0-39.9, adult
CPT/HCPCS: 47562; 36415; 84439; 80051; 83735; 84100; 84443; 85025; 81025; 80048; 80053; 84484; 84481; 80061; 83880; 88304 ×2; 93306; 71010; 93005 ×2; 93010 ×2; G0378 ×3; J2250 ×2; J0690 ×2; J3490 ×2; J1100; J1885; J3010 ×2; J2270 ×2; J1650; J0330; J2405; J7030 ×2; J2704; J0131; 790; J1170

== ENCOUNTER 2017-10-28 08:04 | Inpatient (IN) | payer OTHER ==
[2017-10-20 11:30] LABS: HEMATOCRIT 36.5 % (36.0-47.0); HGB HCT DIFFERENCE -0.5; MEAN CORPUSCULAR HGB CONC 32.9 g/dL (32.0-36.0); MEAN CORPUSCULAR VOLUME 85 fl (80-97); RED BLOOD COUNT 4.29 10^6/uL (3.72-5.28); WHITE BLOOD COUNT 4.4 10^3/uL (4.0-10.5)
[2017-10-20 11:54] LABS: ANION GAP 13 (5-19); BLOOD UREA NITROGEN 9 mg/dL (7-20); CALCIUM 9.7 mg/dL (8.4-10.2); CARBON DIOXIDE 31 mmol/L (22-30); CHLORIDE 100 mmol/L (98-107); CREATININE RESULT 0.59 mg/dL (0.52-1.25); GLUCOSE 94 mg/dL (75-110); POTASSIUM 4.1 mmol/L (3.6-5.0); SODIUM 144.2 mmol/L (137-145)
--- NOTE | 2017-10-20 13:58 | EKG REPORT ---
SEVERITY:- ABNORMAL ECG - SINUS RHYTHM VENTRICULAR PREMATURE COMPLEX INFERIOR INFARCT, OLD : Confirmed by: Elisa Ceballos 20-Oct-2017 13:57:20
[~2017-10-28 08:04] MED LIST changes: +CEFAZOLIN 2 GM/D5W RTU 2 GM/50 ML RTUPB IV PRN; -DEXAMETHASONE SOD PHOSPHATE INJ 4 MG/1 ML VIAL ONE; -GLYCOPYRROLATE INJ 0.4 MG/2 ML VIAL ONE; -KETOROLAC TROMETHAMINE 60 MG/2 ML SDV ONE; +LIDOCAINE 0.5% INJ-PF (5 MG/ML) 50 ML SDV SUBCUT PRN; -LIDOCAINE 2% INJ-PF (20 MG/ML) 2 ML AMPUL ONE; -NEOSTIGMINE METHYLSULFATE 10 MG/10 ML VIAL ONE; -ONDANSETRON HCL INJ/PF 4 MG/2 ML SDV ONE; +RINGERS SOLUTION,LACTATED 1,000 ML IV PRN; -ROCURONIUM BROMIDE INJ 50 MG/5 ML VIAL IV ONE; -SUCCINYLCHOLINE CHLORIDE INJ 200 MG/10 ML VIAL ONE
[2017-10-28] MEDS ORDERED: LIDOCAINE 4% TRANSPARENT DRESSING 5 GM KIT TP PRN (09:16)
[2017-10-28] MEDS ORDERED: METHYLENE BLUE 50 MG/10 ML AMPULE ONE (10:19)
[2017-10-28] MEDS ORDERED: FENTANYL CITRATE INJ/PF 100 MCG/2 ML AMPUL ONE ×3 (11:03→18:01)
[2017-10-28] MEDS ORDERED: ACETAMINOPHEN 100 ML IV ONE (11:04)
[2017-10-28] MEDS ORDERED: MIDAZOLAM 2 MG/2 ML INJ ONE (11:04)
[2017-10-28] MEDS ORDERED: MORPHINE SULFATE 10 MG/ML INJ ONE (11:05)
[2017-10-28] MEDS ORDERED: PROPOFOL INJ 200 MG/20 ML VIAL IV ONE ×2 (11:05→12:47)
--- NOTE | 2017-10-28 12:36 | RADIOLOGY REPORT (SQ) ---
EXAM DESCRIPTION: NM LYMPHATICS/LYMPH GLANDS COMPLETED DATE/TIME: 10/28/2017 11:36 am REASON FOR STUDY: BREAST CANCER C50.912 MALIGNANT NEOPLASM OF UNSPECIFIED SITE OF LEFT FEMAL R59.0 LOCALIZED ENLARGED LYMPH NODES COMPARISON: Multiple previous breast imaging including breast MRI 09/30/2017 RADIONUCLIDE AND DOSE: 537 microcuries TC-99mtilmanocept - [employer]. The route of agent administration: Subcutaneous in the skin. TECHNIQUE: The skin of the right breast was prepped in sterile fashion. The radiopharmaceutical was administered in equally divided doses in the periareolar breast. LIMITATIONS: None. FINDINGS: Images demonstrate activity at the injection site. Migration of activity for its 8 right axillary lymph node with was marked. IMPRESSION: ADMINISTRATION OF RADIOPHARMACEUTICAL FOR SENTINEL LYMPH NODE EVALUATION. TECHNICAL DOCUMENTATION: JOB ID: [id number] [employer]- All Rights Reserved
[2017-10-28] MEDS ORDERED: IBUPROFEN INJ 800 MG/8 ML VIAL IV ONE (12:48)
[2017-10-28] MEDS ORDERED: FENTANYL CITRATE INJ/PF 100 MCG/2 ML AMPUL IV PRN ×5 (13:23→16:43)
[2017-10-28] MEDS ORDERED: ONDANSETRON HCL INJ/PF 4 MG/2 ML SDV IV PRN ×2 (13:23→17:44)
[2017-10-28] MEDS ORDERED: DIPHENHYDRAMINE HCL 50 MG/ML VIAL IV PRN ×2 (13:23→16:43)
[2017-10-28] MEDS ORDERED: PROMETHAZINE HCL INJ 25 MG/1 ML VIAL IV PRN ×3 (13:23→16:43)
[2017-10-28] MEDS ORDERED: MEPERIDINE HCL/PF INJ 25 MG/1 ML DISP.SYRIN IV PRN (16:43)
[2017-10-28] MEDS ORDERED: MORPHINE SULFATE 10 MG/ML INJ IV PRN ×2 (16:43→17:44)
[2017-10-28] MEDS ORDERED: OXYCODONE-ACETAMINOPHEN 5-325 MG TABLET PO PRN (17:44)
[2017-10-28] MEDS ORDERED: NORMAL SALINE 1000 ML 1,000 ML IV PRN (17:44)
--- NOTE | 2017-10-28 17:44 | Operative Report ---
Operative Report DATE OF SURGERY: 10/28/17 PREOPERATIVE DIAGNOSIS: Left breast cancer POSTOPERATIVE DIAGNOSIS: Same OPERATION: Left modified radical mastectomy. Right simple mastectomy. Right axillary sentinel node biopsy. Injection of blue dye for identification of right axillary sentinel node. SURGEON: CALVIN HAIDER ANESTHESIA: GA TISSUE REMOVED OR ALTERED: Right breast. Right axillary sentinel node. Left breast and axillary dissection. COMPLICATIONS: None ESTIMATED BLOOD LOSS: 300 cc INTRAOPERATIVE FINDINGS: Enlarged left axillary nodes. PROCEDURE: Informed consent was obtained. Patient was brought to the operating room and placed on the operating table in the supine position. After satisfactory induction of general anesthesia, after prepping with alcohol, blue dye was injected into the periareolar location on the right breast and breast massage was performed for 5 minutes. Prior to arrival in the operating room patient underwent lymphoscintigraphy for identification of right axillary sentinel node. After prepping with alcohol blue dye was injected at the patient's left upper inner arm for lymphatic mapping of the drainage of the arm in the axilla. Patient's bilateral breast and axilla were prepped and draped in usual sterile fashion. Right mastectomy was performed first. Taking a ellipse of skin encompassing the nipple areolar complex. Superior, inferior then lateral flaps were all raised. The breast was taken off the pectoralis along with the pectoralis fascia. The axilla was entered and using the neoprobe and visualization a hot blue node was identified. The instant count was 32,000, the 10 second count was too high for the machine. There was some activity in the axilla but the activity was in the 200's, far below 10% of the sentinel node count. No other blue nodes were seen. No nodes were palpable. hemostasis appeared excellent. Operative field was irrigated with sterile water and irrigant aspirated out. 2 Jewel-Contreras drains were placed and brought out through separate stab incisions and sutured in place. The wound was closed with deep dermal interrupted Vicryl sutures followed by staple closure of the skin. Attention was then directed toward the left side. Ellipse of skin was taken along with the nipple areolar complex, superior, inferior, and lateral flaps were raised. The breast was taken off the pectoralis along with the pectoralis fascia. Axillary dissection was taken in continuity. The true axilla was entered. Critical structures were identified. Long thoracic nerve and the thoracodorsal nerves were identified and protected during the dissection as well was the median pectoral nerve. Complete level 1 and level 2 dissection was performed. Blue lymphatic tracts were noted above the level of the axillary vein and the dissection was not performed above the level of the axillary vein. Patient had multiple enlarged axillary nodes. The specimen was marked with a short stitch marking the superior border, long stitch marking the lateral border and a super long stitch marking the axillary dissection contents. Hemostasis appeared excellent. 2 Jewel-Contreras drains were placed and sutured in place. Operative field was irrigated with sterile water. Wound was closed with deep dermal interrupted Vicryl sutures followed by staple closure of the skin. Patient tolerated procedure well with no apparent complications and was taken to the recovery area in stable condition.
[2017-10-28] MEDS: FENTANYL CITRATE INJ/PF 100 MCG/2 ML AMPUL IV PRN ×2 (18:02→18:30)
--- NOTE | 2017-10-28 20:01 | PDOC PROGRESS REPORT ---
Subjective Progress Note for:: 10/28/17 Subjective:: Feels well no complaints Reason For Visit: C50.912 MALIGNANT NEOPLASM OF UNSPECIFIED S, R59.0 Physical Exam Vital Signs: Temp Pulse Resp BP Pulse Ox 98.3 F 59 L 16 121/64 97 10/28/17 08:00 10/28/17 08:00 10/28/17 08:00 10/28/17 08:00 10/28/17 08:00 Intake & Output 10/27/17 10/28/17 10/29/17 06:59 06:59 06:59 Intake Total 0 Balance 0 Weight 105.69 kg General appearance: PRESENT: no acute distress, cooperative Respiratory exam: PRESENT: clear to auscultation tank, other - Dressings intact. No swelling. Drain output is blood-tinged. Cardiovascular exam: PRESENT: RRR Results Laboratory Results: 10/20/17 10:40 10/20/17 10:40 Impressions: Lymph Scan Nuclear Medicine 10/28/17 00:00 IMPRESSION: ADMINISTRATION OF RADIOPHARMACEUTICAL FOR SENTINEL LYMPH NODE EVALUATION. Assessment & Plan - Diagnosis (1) Breast cancer, left Is this a current diagnosis for this admission?: Yes Plan: Status post bilateral mastectomies. Patient doing well. Will likely discharge patient home tomorrow. May ambulate tonight. Hold off Lovenox in light of the bloody output via drains.
[2017-10-29] MEDS ORDERED: OXYCODONE-ACETAMINOPHEN 5-325 MG TABLET PO PRN (08:47)
[2017-10-29] MEDS ORDERED: ZOLPIDEM TARTRATE 5 MG TABLET PO PRN (08:47)
[2017-10-29] MEDS ORDERED: ALPRAZOLAM 0.25 MG TABLET PO PRN (08:47)
--- NOTE | 2017-10-29 09:05 | PDOC PROGRESS REPORT ---
Subjective Subjective:: Feels well. No complaints. Reason For Visit: C50.912 MALIGNANT NEOPLASM OF UNSPECIFIED S, R59.0 Physical Exam Vital Signs: Temp Pulse Resp BP Pulse Ox 98.3 F 63 18 131/67 H 100 10/29/17 08:12 10/29/17 08:12 10/29/17 08:12 10/29/17 08:12 10/29/17 08:12 Intake & Output 10/28/17 10/29/17 10/30/17 06:59 06:59 06:59 Intake Total 4680 Output Total 1905 Balance 2775 Weight 105.1 kg General appearance: PRESENT: no acute distress, cooperative Respiratory exam: PRESENT: clear to auscultation tank, other - Dressings are intact. ANNE drain output is blood-tinged but mostly serous. There is no lymphedema Cardiovascular exam: PRESENT: RRR Extremities exam: PRESENT: other - No swelling and no tenderness Results Laboratory Results: 10/20/17 10:40 10/20/17 10:40 Impressions: Lymph Scan Nuclear Medicine 10/28/17 00:00 IMPRESSION: ADMINISTRATION OF RADIOPHARMACEUTICAL FOR SENTINEL LYMPH NODE EVALUATION. Assessment & Plan - Diagnosis (1) Breast cancer, left Is this a current diagnosis for this admission?: Yes Plan: Status post bilateral mastectomies. Patient doing well. DC home. Follow-up next week. Encourage activity at home
[2017-10-29 09:58] VITALS: BP 131/67
[2017-10-29] MEDS ORDERED: LEVOTHYROXINE SODIUM 0.1 MG TABLET PO SCH (10:00)
[2017-10-29] MEDS ORDERED: SERTRALINE HCL 50 MG TABLET PO SCH (10:00)
[2017-10-29] MEDS ORDERED: GABAPENTIN 100 MG CAPSULE PO SCH (10:00)
[2017-10-29] MEDS ORDERED: METOPROLOL SUCCINATE 25 MG TAB.SR.24H PO SCH (10:00)
--- NOTE | 2017-10-29 10:18 | DISCHARGE SUMMARY E ---
Discharge Summary NAME: NORMA SEVILLA : 1970 AGE: 47Y ADMITTED: 10/28/2017 DISCHARGED: 10/29/2017 DISCHARGE DIAGNOSIS: Left-sided breast cancer. PROCEDURE PERFORMED DURING HOSPITALIZATION: Left modified radical mastectomy, right mastectomy with right axillary sentinel node biopsy. Injection of blue dye for identification of sentinel node. All performed on 10/28/2017. HOSPITAL COURSE: The patient underwent the above mentioned surgery. She did well postoperatively. Her pain was under good control. She had no swelling. Her drain output was clearing up at the time of discharge. Her vital signs remained stable and her cardiopulmonary exam was normal. Patient is now being discharged to home in good condition. She will follow up with me next week. She is encouraged to stay active at home and do range of motion exercises with both of her arms. She is to keep her arms elevated when she is at rest. She is to measure her drain output each day. She may shower tomorrow night. She may resume all of her home medications. Additional medication is Percocet 1 p.o. q.4 hours p.r.n. pain. DICTATING PHYSICIAN: SARAH HAIDER M.D. [id number] PHY#: [id number] ID: [id number] JOB#: [id number] ACCT: [id number] cc:SARAH HAIDER M.D. >
--- NOTE | 2017-10-29 12:06 | WOMENS IMAGING REPORT ---
EXAM DESCRIPTION: BREAST SPECIMEN COMPLETED DATE/TIME: 10/29/2017 10:39 am REASON FOR STUDY: LEFT BREAST C50.912 MALIGNANT NEOPLASM OF UNSPECIFIED SITE OF LEFT FEMAL R59.0 L OCALIZED ENLARGED LYMPH NODES COMPARISON: None. TECHNIQUE: Specimen radiograph from breast procedure performed in the operating room. LIMITATIONS: None. FINDINGS: Specimen radiograph from breast procedure performed in the operating room. Please see procedure note for details and final pathology. IMPRESSION: Specimen radiograph. TECHNICAL DOCUMENTATION: JOB ID: [id number]
== END 2017-10-29 10:00 | disposition home or self-care (01) | DRG 581 ==
LOC: OROUT 08:04 → INOR 08:05 → 2S 19:35 → OROUT 10-29 10:58
PROVIDERS: ADMIT Surgery; ATTEND Surgery
PROC: 0HTV0ZZ Resection of Bilateral Breast, Open Approach (ICD-10-PCS; 2017-10-28)
PROC: 07B50ZX Excision of Right Axillary Lymphatic, Open Approach, Diagnostic (ICD-10-PCS; principal; 2017-10-28 11:30)
DX: C50.912 Malignant neoplasm of unspecified site of left female breast (principal); R59.0 Localized enlarged lymph nodes; E89.0 Postprocedural hypothyroidism; Y83.6 Removal of other organ (partial) (total) as the cause of abnormal reaction of the patient, or of later complication, without mention of misadventure at the time of the procedure; Z88.6 Allergy status to analgesic agent; F32.9 Major depressive disorder, single episode, unspecified; Z81.1 Family history of alcohol abuse and dependence; Z87.891 Personal history of nicotine dependence; Z79.899 Other long term (current) drug therapy
CPT/HCPCS: 1610; 36415; 76098; 78195; 80048; 81025; 85027; 88307; 88309; 88342; 93005; 93010; A9520; J0131; J0690; J1741; J2250; J2270; J2704; J3010; J3490; J7030; L8000; Q9968

== ENCOUNTER → 2017-11-27 | Outpatient (CLI) | payer OTHER ==
--- NOTE | 2017-11-27 16:21 | RADIOLOGY REPORT (SQ) ---
EXAM DESCRIPTION: VENOUS UNILATERAL UPPER COMPLETED DATE/TIME: 11/27/2017 3:54 pm REASON FOR STUDY: LUE PAIN M79.603 PAIN IN ARM, UNSPECIFIED COMPARISON: None. TECHNIQUE: Dynamic and static matta scale and color images acquired of the left arm venous system. Se lected spectral images acquired with additional compression and augmentation maneuvers. The contralat eral subclavian vein and internal jugular vein were also imaged. Images stored on PACS. LIMITATIONS: None. FINDINGS: INTERNAL JUGULAR VEIN: Normal phasicity, compression, augmentation. No visualized echogeni c material on matta scale. No defects on color images. Comparison opposite side normal. SUBCLAVIAN VEIN: Normal compression, augmentation. No visualized echogenic material on matta scale. No defects on color images. AXILLARY VEIN: Normal compression, augmentation. No visualized echogenic material on matta scale. No d efects on color images. BRACHIAL VEIN: Normal compression, augmentation. No visualized echogenic material on matta scale. No d efects on color images. BASILIC VEIN: Normal compression, augmentation. No visualized echogenic material on matta scale. No de fects on color images. CEPHALIC VEIN: Normal compression, augmentation. No visualized echogenic material on matta scale. No d efects on color images. OTHER: No other significant finding. CONTRALATERAL SUBCLAVIAN VEIN AND INTERNAL JUGULAR VEIN: Normal phasicity, compression and augmentation. No visualized echogenic material on matta scale. No de fects on color images. IMPRESSION: NO EVIDENCE DVT OR SVT IN THE LEFT ARM. TECHNICAL DOCUMENTATION: JOB ID: [id number] [employer]- All Rights Reserved
== END ==
LOC: SP 14:54
PROVIDERS: ATTEND Surgery
DX: M79.602 Pain in left arm (principal)
CPT/HCPCS: 93971

== ENCOUNTER → 2017-12-02 | Outpatient (CLI) | payer OTHER ==
--- NOTE | 2017-12-02 15:10 | RADIOLOGY REPORT (SQ) ---
EXAM DESCRIPTION: CT CHEST WITH COMPLETED DATE/TIME: 12/02/2017 10:40 am REASON FOR STUDY: BREAST CA (C50.412) C50.412 MALIG NEOPLASM OF UPPER-OUTER QUADRANT OF LEFT FEMAL COMPARISON: PET-CT 09/21/2017. TECHNIQUE: CT scan of the chest performed using helical scanning technique with dynamic intravenous contrast injection. Images reviewed with lung, soft tissue and bone windows. Reconstructed coronal and sagittal MPR images reviewed. All images stored on PACS. All CT scanners at this facility use dose modulation, iterative reconstruction, and/or weight based d osing when appropriate to reduce radiation dose to as low as reasonably achievable (ALARA). [facility]: Dose Right [facility]: CareDose [facility]: Dose Right [facility]: Teradose 4D [facility]: Smart [employer] CONTRAST TYPE AND DOSE: See separate report of the same date. RENAL FUNCTION: See separate report. RADIATION DOSE: . LIMITATIONS: None. FINDINGS: LUNGS AND PLEURA: No opacities, nodules, masses. No pneumothorax. No effusions. HILAR AND MEDIASTINAL STRUCTURES: No identified masses or abnormal nodes. HEART AND VASCULAR STRUCTURES: No aneurysm or dissection. No central pulmonary emboli. No pericardi al effusion. HARDWARE: None in the chest. UPPER ABDOMEN: See separate report of the CT of the abdomen. THYROID AND OTHER SOFT TISSUES: Left axillary node image 12 measuring about 1.6 cm in diameter not se en on the prior PET. More inferior left axillary clips. BONES: No significant finding. OTHER: Right-sided port tip in the SVC. IMPRESSION: 1.5 cm left axillary node which is new from the PET 09/21/2017. TECHNICAL DOCUMENTATION: JOB ID: [id number] Quality ID # [id number]: Final reports with documentation of one or more dose reduction techniques (e.g., Au tomated exposure control, adjustment of the mA and/or kV according to patient size, use of iterative reconstruction technique) 2010 [employer]- All Rights Reserved
--- NOTE | 2017-12-02 15:45 | RADIOLOGY REPORT (SQ) ---
EXAM DESCRIPTION: CT ABD/PELVIS WITH IV ORAL COMPLETED DATE/TIME: 12/02/2017 10:40 am REASON FOR STUDY: BREAST CA (C50.412) C50.412 MALIG NEOPLASM OF UPPER-OUTER QUADRANT OF LEFT FEMAL COMPARISON: None. TECHNIQUE: CT scan of the abdomen and pelvis performed using helical scanning technique with dynamic intravenous contrast injection. No oral contrast. Images reviewed with lung, soft tissue, and bone windows. Reconstructed coronal and sagittal MPR images reviewed. Delayed images for evaluation of the urinary system also acquired. All images stored on PACS. All CT scanners at this facility use dose modulation, iterative reconstruction, and/or weight based d osing when appropriate to reduce radiation dose to as low as reasonably achievable (ALARA). [facility]: Dose Right [facility]: CareDose [facility]: Dose Right [facility]: Teradose 4D [facility]: [employer] CONTRAST TYPE AND DOSE: contrast/concentration: Isovue 370.00 mg/ml; Total Contrast Delivered: 100.0 ml; Total Saline Delivered: 59.0 ml RENAL FUNCTION: GFR > 60. RADIATION DOSE: CT Rad equipment meets quality standard of care and radiation dose reduction techniq ues were employed. CTDIvol: 15.4 - 17.1 mGy. DLP: 2330 mGy-cm.. LIMITATIONS: None. FINDINGS: LOWER CHEST: No significant findings. No nodules or infiltrates. LIVER: Normal size. No masses. No dilated ducts. SPLEEN: Normal size. No focal lesions. PANCREAS: No masses. No significant calcifications. No adjacent inflammation or peripancreatic fluid collections. Pancreatic duct not dilated. GALLBLADDER: Surgically absent. ADRENAL GLANDS: No significant masses or asymmetry. RIGHT KIDNEY AND URETER: No solid masses. No significant calcifications. No hydronephrosis or hyd roureter. LEFT KIDNEY AND URETER: No solid masses. No significant calcifications. No hydronephrosis or hydr oureter. AORTA AND VESSELS: No aneurysm. No dissection. Renal arteries, SMA, celiac without stenosis. RETROPERITONEUM: No retroperitoneal adenopathy, hemorrhage or masses. BOWEL AND PERITONEAL CAVITY: No masses or inflammatory changes. No free fluid or peritoneal masses. APPENDIX: Normal. PELVIS: No mass. No free fluid. Normal bladder. ABDOMINAL WALL: No masses. No hernias. BONES: No significant or acute findings. OTHER: No other significant finding. IMPRESSION: No evidence of metastatic disease. TECHNICAL DOCUMENTATION: JOB ID: [id number] Quality ID # [id number]: Final reports with documentation of one or more dose reduction techniques (e.g., Au tomated exposure control, adjustment of the mA and/or kV according to patient size, use of iterative reconstruction technique) 2010 [employer]- All Rights Reserved
== END ==
LOC: RAD 09:44
PROVIDERS: ATTEND Internal Medicine
DX: C50.412 Malignant neoplasm of upper-outer quadrant of left female breast (principal)
CPT/HCPCS: 71260; 74177

== ENCOUNTER → 2017-12-21 | Outpatient (CLI) | payer OTHER ==
--- NOTE | 2017-12-22 10:32 | RADIOLOGY REPORT (SQ) ---
EXAM DESCRIPTION: PET CT SKULL/THIGH COMPLETED DATE/TIME: 12/21/2017 9:21 pm REASON FOR STUDY: BREAST CANCER C50.412 MALIG NEOPLASM OF UPPER-OUTER QUADRANT OF LEFT FEMAL COMPARISON: CT chest abdomen pelvis 12/12/2017 PET-CT 09/21/2017 RADIONUCLIDE AND DOSE: 11.5 mCi F18 FDG The route of agent administration: Intravenous FASTING BLOOD SUGAR: 84 mg/dl CONTRAST TYPE AND DOSE: No CT contrast given. TECHNIQUE: Blood glucose level was verified. Above dose of FDG was injected intravenously. 2-D seg mented attenuation correction images were obtained from the base of the skull to the midthighs. Nonc ontrast CT images were obtained for attenuation correction and fusion with emission images. CT image s were performed without oral or intravenous contrast and are not sensitive for parenchymal lesions. A series of overlapping emission PET images were obtained. Images reviewed and manipulated at [facility] work station by the radiologist. Images stored on PACS. LIMITATIONS: None. FINDINGS: HEAD AND NECK: No areas of abnormal metabolic activity in the soft tissues of the head and neck. CHEST: There is a new left supraclavicular lymph node on axial image 43, 9 mm in size with SUV 3.3. A 1.6 cm lymph node identified on CT chest abdomen pelvis 12/02/2017 is again seen, superior to the lef t axilla surgical clips post axillary dissection. This measures 1.8 x 1.3 cm in size on axial image 50, with SUV of 6.5. There is a second, adjacent lymph node left axilla 2.2 x 1.5 cm in size on axial image 54, with SUV 7 .8. Patient is post bilateral mastectomy. Along the left mastectomy incision, there is a band of increas ed activity with SUV ranging from 7.6 to 8.3. ABDOMEN AND PELVIS: No areas of abnormal metabolic activity in the abdomen or pelvis. Expected physi ologic activity is present in the genitourinary system and bowel. PROXIMAL LOWER EXTREMITIES: No areas of abnormal metabolic activity in the soft tissues of the lower extremities. BONES: No abnormal metabolic activity in the visualized skeleton. ADDITIONAL CT FINDINGS: Right permanent central line tip superior vena cava. Mucous membrane thicken ing floor right maxillary sinus. Post cholecystectomy OTHER: Liver background SUV 2.3. Blood pool background 1.5 SUV IMPRESSION: New left supraclavicular hypermetabolic lymph nodes. Hypermetabolic left high axillary lymph node superior to the axillary dissection surgical clips. Bandlike increased activity along the left mastectomy scar. TECHNICAL DOCUMENTATION: JOB ID: [id number] [employer]- All Rights Reserved
== END ==
LOC: RAD 18:32
PROVIDERS: ATTEND Internal Medicine
DX: C50.412 Malignant neoplasm of upper-outer quadrant of left female breast (principal)
CPT/HCPCS: 78815; A9552

== ENCOUNTER → 2018-01-22 | Outpatient (CLI) | payer OTHER ==
[2018-01-22 11:42] LABS: ABSOLUTE EOSINOPHILS # (AUTO) 0.1 10^3/uL (0.0-0.6); ABSOLUTE LYMPHOCYTES (AUTO) 0.7 10^3/uL (0.5-4.7); ABSOLUTE MONOCYTES (AUTO) 0.3 10^3/uL (0.1-1.4); ABSOLUTE NEUT (AUTO) 3.9 10^3/uL (1.7-8.2); BASOPHILS % (AUTO) 0.5 % (0-2); EOSINOPHILS % (AUTO) 1.7 % (0-6); HEMATOCRIT 36.2 % (36.0-47.0); HEMOGLOBIN 11.9 g/dL (12.0-15.5); LYMPHOCYTES % (AUTO) 13.5 % (13-45); MEAN CORPUSCULAR HEMOGLOBIN 25.6 pg (27.0-33.4); MEAN CORPUSCULAR HGB CONC 32.7 g/dL (32.0-36.0); MEAN CORPUSCULAR VOLUME 78 fl (80-97); MONOCYTES % (AUTO) 5.8 % (3-13); PLATELET COUNT 214 10^3/uL (150-450); RED BLOOD COUNT 4.63 10^6/uL (3.72-5.28); RED CELL DISTRIBUTION WIDTH 15.9 % (11.5-14.0); SEGMENTED NEUTROPHILS % (AUTO) 78.5 % (42-78); TOTAL CELLS COUNTED % (AUTO) 100 %
== END ==
LOC: OD 10:54
PROVIDERS: ATTEND Radiology Radiation Oncology
DX: C50.412 Malignant neoplasm of upper-outer quadrant of left female breast (principal); C77.3 Secondary and unspecified malignant neoplasm of axilla and upper limb lymph nodes; Z79.899 Other long term (current) drug therapy
CPT/HCPCS: 36415; 85025

== ENCOUNTER → 2018-02-09 | Outpatient (CLI) | payer OTHER ==
[2018-02-09 11:04] LABS: ABSOLUTE EOSINOPHILS # (AUTO) 0.1 10^3/uL (0.0-0.6); ABSOLUTE LYMPHOCYTES (AUTO) 0.3 10^3/uL (0.5-4.7); ABSOLUTE MONOCYTES (AUTO) 0.4 10^3/uL (0.1-1.4); ABSOLUTE NEUT (AUTO) 3.6 10^3/uL (1.7-8.2); BASOPHILS % (AUTO) 0.5 % (0-2); EOSINOPHILS % (AUTO) 1.3 % (0-6); HEMATOCRIT 35.4 % (36.0-47.0); HEMOGLOBIN 11.6 g/dL (12.0-15.5); LYMPHOCYTES % (AUTO) 7.4 % (13-45); MEAN CORPUSCULAR HEMOGLOBIN 25.4 pg (27.0-33.4); MEAN CORPUSCULAR HGB CONC 32.8 g/dL (32.0-36.0); MEAN CORPUSCULAR VOLUME 78 fl (80-97); PLATELET COUNT 236 10^3/uL (150-450); RED BLOOD COUNT 4.57 10^6/uL (3.72-5.28); RED CELL DISTRIBUTION WIDTH 15.4 % (11.5-14.0); SEGMENTED NEUTROPHILS % (AUTO) 81.8 % (42-78); TOTAL CELLS COUNTED % (AUTO) 100 %; WHITE BLOOD COUNT 4.4 10^3/uL (4.0-10.5)
[2018-02-09 11:23] LABS: ALANINE AMINOTRANSFERASE 26 U/L (9-52); ALBUMIN 4.1 g/dL (3.5-5.0); ALKALINE PHOSPHATASE 55 U/L (38-126); ANION GAP 9 (5-19); ASPARTATE AMINO TRANSFERASE 21 U/L (14-36); BILIRUBIN,DIRECT 0.4 mg/dL (0.0-0.4); BILIRUBIN,TOTAL 0.5 mg/dL (0.2-1.3); BLOOD UREA NITROGEN 5 mg/dL (7-20); CALCIUM 9.6 mg/dL (8.4-10.2); CARBON DIOXIDE 31 mmol/L (22-30); CHLORIDE 102 mmol/L (98-107); GLUCOSE 96 mg/dL (75-110); LIPASE 40.6 U/L (23-300); SODIUM 142.2 mmol/L (137-145); TOTAL PROTEIN 7.3 g/dL (6.3-8.2)
== END ==
LOC: OD 10:38
PROVIDERS: ATTEND Obstetrics & Gynecology
DX: M54.89 Other dorsalgia (principal); R10.11 Right upper quadrant pain
CPT/HCPCS: 36415; 80053; 83690; 85025

== ENCOUNTER → 2018-03-05 | Day surgery (SDC) | payer OTHER ==
[~2018-03-05] MED LIST changes: -ACETAMINOPHEN 325 MG TABLET PO PRN; -CEFAZOLIN 2 GM/D5W RTU 2 GM/50 ML RTUPB IV PRN; -LIDOCAINE 0.5% INJ-PF (5 MG/ML) 50 ML SDV SUBCUT PRN; +LIDOCAINE 1% INJ-PF (10 MG/ML) 30 ML SDV ONE; -RINGERS SOLUTION,LACTATED 1,000 ML IV PRN
[2018-03-05 08:13] LABS: HEMATOCRIT 34.9 % (36.0-47.0); HEMOGLOBIN 11.2 g/dL (12.0-15.5); MEAN CORPUSCULAR HEMOGLOBIN 24.9 pg (27.0-33.4); MEAN CORPUSCULAR HGB CONC 32.1 g/dL (32.0-36.0); MEAN CORPUSCULAR VOLUME 78 fl (80-97); PLATELET COUNT 245 10^3/uL (150-450); RED BLOOD COUNT 4.49 10^6/uL (3.72-5.28); RED CELL DISTRIBUTION WIDTH 16.1 % (11.5-14.0); WHITE BLOOD COUNT 5.1 10^3/uL (4.0-10.5)
[2018-03-05 08:17] LABS: INTERNATIONAL RATION (INR) 0.95; PROTHROMBIN TIME 13.4 SEC (11.4-15.4)
[2018-03-05 08:18] LABS: PARTIAL THROMBOPLASTIN TIME 31.9 SEC (23.5-35.8)
[2018-03-05 08:24] LABS: BLOOD UREA NITROGEN 8 mg/dL (7-20)
[2018-03-05 13:00] VITALS: BP 98/69
--- NOTE | 2018-03-05 16:17 | RADIOLOGY REPORT (SQ) ---
EXAM DESCRIPTION: U/S CHEST COMPLETED DATE/TIME: 03/05/2018 11:10 am REASON FOR STUDY: PL EFF COMPARISON: PET-CT 12/21/2017 TECHNIQUE: Ultrasound of the right and left chest was performed to evaluate for pleural effusions. LIMITATIONS: None. FINDINGS: Very small pleural effusions are present bilaterally in the posterior costophrenic sulci. Effusions are not large enough to effectively tab under ultrasound guidance without significant risk of pneumothorax. These findings were discussed with Dr. Hines, thoracentesis was canceled today. IMPRESSION: Very small bilateral pleural effusions, no thoracentesis performed today. TECHNICAL DOCUMENTATION: JOB ID: [id number] [employer]- All Rights Reserved Reading location - IP/workstation name: [email or web address]
== END ==
LOC: RAD 07:14
PROVIDERS: ATTEND Internal Medicine Hematology & Oncology
DX: J91.0 Malignant pleural effusion (principal); C50.412 Malignant neoplasm of upper-outer quadrant of left female breast; Z79.899 Other long term (current) drug therapy; Z88.5 Allergy status to narcotic agent; E03.9 Hypothyroidism, unspecified
CPT/HCPCS: 36415; 76604; 82565; 84520; 85027; 85610; 85730; J3490

== ENCOUNTER → 2018-06-07 | Outpatient (CLI) | payer OTHER ==
--- NOTE | 2018-06-08 08:21 | RADIOLOGY REPORT (SQ) ---
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 TECHNIQUE: Blood glucose level was verified. Above dose of FDG was injected intravenously. 2-D seg mented attenuation correction images were obtained from the base of the skull to the midthighs. Nonc ontrast CT images were obtained for attenuation correction and fusion with emission images. CT image s were performed without oral or intravenous contrast and are not sensitive for parenchymal lesions. A series of overlapping emission PET images were obtained. Images reviewed and manipulated at [facility] work station by the radiologist. Images stored on PACS. LIMITATIONS: None. FINDINGS: HEAD AND NECK: No areas of abnormal metabolic activity in the soft tissues of the head and neck. The left supraclavicular lymph nodes seen on 12/21/2017 are no longer present. CHEST: No areas of abnormal metabolic activity in the chest. The deep left axillary/retropectoral ly mph nodes seen on 12/21/2017 are no longer present. There patchy left upper lobe airspace disease on axial images 48-57, with mild metabolic activity, SHORT V at liver background of 2.4. ABDOMEN AND PELVIS: No areas of abnormal metabolic activity in the abdomen or pelvis. Expected physi ologic activity is present in the genitourinary system and bowel. PROXIMAL LOWER EXTREMITIES: No areas of abnormal metabolic activity in the soft tissues of the lower extremities. BONES: No abnormal metabolic activity in the visualized skeleton. ADDITIONAL CT FINDINGS: Bilateral mastectomy. Post cholecystectomy. Right permanent central line ti p superior vena cava. OTHER: Liver background activity 2.4 SUV. Blood pool background activity 1.8 SUV. IMPRESSION: Minimal left upper lobe airspace disease. Left supraclavicular and deep axillary/left retropectoral lymph nodes seen on 12/21/2017 are no longer present. TECHNICAL DOCUMENTATION: JOB ID: [id number] [employer]- All Rights Reserved Reading location - IP/workstation name: [email or web address]
== END ==
LOC: RAD 15:30
PROVIDERS: ATTEND Internal Medicine
DX: C50.412 Malignant neoplasm of upper-outer quadrant of left female breast (principal); Z90.13 Acquired absence of bilateral breasts and nipples
CPT/HCPCS: 78815; A9552

== ENCOUNTER → 2018-09-13 | Outpatient (CLI) | payer OTHER ==
--- NOTE | 2018-09-14 09:32 | RADIOLOGY REPORT (SQ) ---
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 TECHNIQUE: Blood glucose level was verified. Above dose of FDG was injected intravenously. 2-D seg mented attenuation correction images were obtained from the base of the skull to the midthighs. Nonc ontrast CT images were obtained for attenuation correction and fusion with emission images. CT image s were performed without oral or intravenous contrast and are not sensitive for parenchymal lesions. A series of overlapping emission PET images were obtained. Images reviewed and manipulated at [facility] [employer] work station by the radiologist. Images stored on PACS. LIMITATIONS: None. FINDINGS: HEAD AND NECK: No areas of abnormal metabolic activity in the soft tissues of the head and neck. CHEST: Left supraclavicular and left axillary adenopathy seen on 12/21/2017 has been surgically remove d. There is bandlike scarring in the right lung apex post radiation therapy and multiple surgical cl ips at the left high axilla/retropectoral region. No increased uptake in this area worrisome for res idual metastatic adenopathy. ABDOMEN AND PELVIS: No areas of abnormal metabolic activity in the abdomen or pelvis. Expected physi ologic activity is present in the genitourinary system and bowel. PROXIMAL LOWER EXTREMITIES: No areas of abnormal metabolic activity in the soft tissues of the lower extremities. BONES: No abnormal metabolic activity in the visualized skeleton. ADDITIONAL CT FINDINGS: Bilateral mastectomy. Right permanent central line tip superior vena cava. Post cholecystectomy. Mucus or serous retention cyst floor right maxillary sinus OTHER: Liver background activity 2.5 SUV. Blood pool background activity 2.0 SUV IMPRESSION: No PET-CT evidence of residual or recurrent tumor. TECHNICAL DOCUMENTATION: JOB ID: [id number] [employer]- All Rights Reserved Reading location - IP/workstation name: [email or web address]
== END ==
LOC: RAD 17:23
PROVIDERS: ATTEND Internal Medicine
DX: C50.412 Malignant neoplasm of upper-outer quadrant of left female breast (principal)
CPT/HCPCS: 78815; A9552

== ENCOUNTER → 2018-12-13 | Outpatient (CLI) | payer OTHER ==
--- NOTE | 2018-12-15 08:20 | RADIOLOGY REPORT (SQ) ---
EXAM DESCRIPTION: PET CT SKULL/THIGH COMPLETED DATE/TIME: 12/13/2018 9:26 pm REASON FOR STUDY: BREAST CANCER C50.412 MALIG NEOPLASM OF UPPER-OUTER QUADRANT OF LEFT FEMAL COMPARISON: PET-CT 09/13/2018, 06/07/2018, 12/21/2017, 09/21/2017 CT chest abdomen pelvis 12/02/2017 RADIONUCLIDE AND DOSE: 8.3 mCi F18 FDG The route of agent administration: Intravenous FASTING BLOOD SUGAR: 78 mg/dl CONTRAST TYPE AND DOSE: No CT contrast given. TECHNIQUE: Blood glucose level was verified. Above dose of FDG was injected intravenously. 2-D seg mented attenuation correction images were obtained from the base of the skull to the midthighs. Nonc ontrast CT images were obtained for attenuation correction and fusion with emission images. CT image s were performed without oral or intravenous contrast and are not sensitive for parenchymal lesions. A series of overlapping emission PET images were obtained. Images reviewed and manipulated at [facility] work station by the radiologist. Images stored on PACS. LIMITATIONS: None. FINDINGS: HEAD AND NECK: No areas of abnormal metabolic activity in the soft tissues of the head and neck. CHEST: Multiple new areas of increased metabolic activity over the chest as follows: 1.5 x 1.1 cm right peritracheal lymph node axial image 73, with SUV 6.8. 1.3 x 1.3 cm right peritracheal lymph node axial image 79, with SUV 7.2. Subcentimeter right hilar lymph node axial image 86, with SUV 7.1 3.3 x 2.4 cm sub- carinal lymph node axial image 87, with SUV 12.1 Left chest wall near the axillary surgical clips 1.2 cm diameter nodule axial image 83, SUV 6.1 Left chest wall along the mastectomy incision along the skin surface, SUV 5.4 Left flank 1.5 cm skin lesion axial image 120, SUV 10.9 There is a new nodule in the right posterior costophrenic sulcus, right lower lobe 13 mm size on axia l image 114 with SUV 2.0 (between blood pool and liver activity ABDOMEN AND PELVIS: No areas of abnormal metabolic activity in the abdomen or pelvis. Expected physi ologic activity is present in the genitourinary system and bowel. PROXIMAL LOWER EXTREMITIES: No areas of abnormal metabolic activity in the soft tissues of the lower extremities. BONES: No abnormal metabolic activity in the visualized skeleton. ADDITIONAL CT FINDINGS: Bilateral mastectomies with breast implants. Right central line tip in the s uperior vena cava. Post cholecystectomy. Mild cardiomegaly OTHER: Liver background activity 2.8 SUV. Blood pool background activity 1.8 SUV IMPRESSION: Tumor recurrence over the left chest wall, and mediastinum as above TECHNICAL DOCUMENTATION: JOB ID: [id number] [employer]- All Rights Reserved Reading location - IP/workstation name: [email or web address]
== END ==
LOC: RAD 17:46
PROVIDERS: ATTEND Internal Medicine
DX: C50.412 Malignant neoplasm of upper-outer quadrant of left female breast (principal)
CPT/HCPCS: 78815; A9552

== ENCOUNTER → 2018-12-28 | Outpatient (CLI) | payer OTHER ==
--- NOTE | 2018-12-28 18:03 | RADIOLOGY REPORT (SQ) ---
EXAM DESCRIPTION: MRI HEAD COMBO COMPLETED DATE/TIME: 12/28/2018 5:38 pm REASON FOR STUDY: R26.81 UNSTEADINESS ON FEET R26.89 OTHER ABNORMALITIES OF GAIT AND MOBILITY C50.41 2 MALIG NEOPLASM OF UPPER-OUTER QUADRANT OF LEFT FEMAL R26.81 UNSTEADINESS ON FEET R26.89 OTHER AB NORMALITIES OF GAIT AND MOBILITY COMPARISON: PET-CT 12/13/2018 TECHNIQUE: Multiplanar imaging includes noncontrasted T1, T2, FLAIR, diffusion with ADC map and post gadolinium contrast T1 sequences. Images stored on PACS. CONTRAST TYPE AND DOSE: 20 mL Dotare[employer]. RENAL FUNCTION: Creatinine 0.7 GFR greater than 60 LIMITATIONS: None. FINDINGS: Multisequence imaging shows a lesion in the left thalamus extending into the brainstem. T his shows rim enhancement with suggestion of central necrosis. This measures about 2 cm in AP diamet er. This is 2.6 cm in cephalocaudal dimension. No other enhancing lesions are seen. The ventricles are normal. No vascular anomalies are seen. The cerebellum is normal. The internal auditory canal s and cerebellopontine angles are normal. IMPRESSION: There is an enhancing lesion on the left extending from the thalamus into the brainstem. This demonstrates rim enhancement with central necrosis suggested. EVIDENCE OF ACUTE STROKE: NO. TECHNICAL DOCUMENTATION: JOB ID: [id number] [employer]- All Rights Reserved Reading location - IP/workstation name: [email or web address]
== END ==
LOC: RAD 17:51
PROVIDERS: ATTEND Internal Medicine
DX: C50.412 Malignant neoplasm of upper-outer quadrant of left female breast (principal); R26.81 Unsteadiness on feet; R26.89 Other abnormalities of gait and mobility
CPT/HCPCS: 82565; 70553; A9576

== ENCOUNTER 2019-03-04 03:41 | Inpatient (IN) | payer OTHER ==
--- NOTE | 2019-03-04 04:09 | ER Document Report ---
ED General - General Chief Complaint: Shortness Of Breath Stated Complaint: POSS PNEUMONIA Time Seen by Provider: 03/04/19 03:56 Primary Care Provider: JOAQUIM MCKEON MD [Primary Care Provider] - Follow up as needed Notes: Patient is a pleasant 49-year-old female with a history of stage IV lung cancer. She is referred in by Dr. Rosenberg due to worsening difficulty breathing. Patient is on home oxygen but was had worsening difficulty breathing over last 24 hours. She had fevers last couple days. She is on chemotherapy. Said breathing became much worse tonight and therefore she came to ER. Patient does have a previous history of pleural effusion but this resolved on its own. She does have history of pneumonia in the past as well. No history of IN. She denies any chest pain. TRAVEL OUTSIDE OF THE [place] IN LAST 30 DAYS: No - Related Data Allergies/Adverse Reactions: hydrocodone Adverse Reaction (Verified 03/04/19 04:26) Generalized Itching Past Medical History - Social History Smoking Status: Unknown if Ever Smoked Frequency of alcohol use: None Drug Abuse: None Family History: Hypertension - Past Medical History Cardiac Medical History: Reports: Hx Heart Attack - EKG SHOWS OLD; PT UNAWARE Denies: Hx Coronary Artery Disease, Hx Hypertension Pulmonary Medical History: Reports: Hx Sleep Apnea Denies: Hx Asthma, Hx Bronchitis, Hx COPD, Hx Pneumonia Neurological Medical History: Denies: Hx Cerebrovascular Accident, Hx Seizures Endocrine Medical History: Reports: Hx Hypothyroidism Renal/ Medical History: Denies: Hx Peritoneal Dialysis Malignancy Medical History: Reports: Hx Breast Cancer - left breast cancer metastatic to the axilla status post neoadjuvant therapy Musculoskeletal Medical History: Reports Hx Arthritis - hands and knees BACK Psychiatric Medical History: Reports: Hx Depression Past Surgical History: Reports: Hx Orthopedic Surgery - R SHOULDER REPLACEMENT, Hx Thyroid Surgery, Hx Tubal Ligation - Immunizations Hx Diphtheria, Pertussis, Tetanus Vaccination: Yes Review of Systems - Review of Systems Notes: My Normal Review Basic REVIEW OF SYSTEMS: CONSTITUTIONAL : Recent fevers EENT: Denies eye, ear, throat, or mouth pain or symptoms. Denies nasal or sinus congestion. CARDIOVASCULAR: Denies chest pain. RESPIRATORY: Dyspnea GASTROINTESTINAL: Denies abdominal pain. Denies nausea, vomiting, or diarrhea. MUSCULOSKELETAL: Denies neck or back pain or joint pain or swelling. Hematology: Leukopenia due to chemotherapy SKIN: Denies rash or skin lesions. NEUROLOGICAL: Denies altered mental status or loss of consciousness. Denies headache. Denies weakness or paralysis or loss of use of either side. Denies problems with gait or speech. Denies sensory or motor loss. ALL OTHER SYSTEMS REVIEWED AND NEGATIVE. Physical Exam - Vital signs Vitals: Temp Pulse Resp BP Pulse Ox 97.9 F 146 H 22 H 139/77 H 68 L 03/04/19 03:50 03/04/19 03:50 03/04/19 03:50 03/04/19 03:50 03/04/19 03:50 - Notes Notes: General Appearance: Well nourished, alert, cooperative, moderate to severe acute distress, no obvious discomfort. Patient currently tripoding working hard to breathe. Vitals: reviewed, See vital signs table. Head: no swelling or tenderness to the head Eyes: PERRL, EOMI, Conjuctiva clear Mouth: No decreasd moisture Throat: No tonsillar inflammation, No airway obstruction, No lymphadenopathy Neck: Supple, no neck tenderness Chest wall: Patient has skin breakdown from previous mastectomy in the left chest wall. Lungs: No wheezing, No rales, No rhonci, moderate accessory muscle use, good air exchange bilaterally. Heart: Tachycardic rate, Regular rythm, No murmur, no rub Abdomen: Normal BS, soft, No rigidity, No abdominal tenderness, No guarding, no rebound, no abdominal masses Extremities: strength 5/5 in all extremities, good pulses in all extremities, no swelling or tenderness in the extremities, no edema. Skin: warm, dry, appropriate color, no rash Neuro: speech clear, oriented x 3, normal affect, responds appropriately to questions. Course - Re-evaluation Re-evalutation: 03/04/19 05:11 Patient is feeling much improved on the BiPAP. She is however having recurrent episodes where her heart rate will get into the 190s. Will stay there for approximately 10-30 seconds. After that it returns back to the 130s 140s. Being that her heart rate is currently going to what appears to be SVT I will place her on Cardizem drip to help prevent this from reoccurring. 03/04/19 06:27 Because the patient's chest x-ray did place her on broad-spectrum antibiotics. This before received results of her CBC. I placed on Zosyn and vancomycin. Later her CBC come back showing that she is severely neutropenic. Despite being severely neutropenic she actually has a bandemia. At this time I suspect she most likely has pneumonia. Chest x-ray findings could also be consistent with that of congestive heart failure. I therefore am very careful about how much fluid she is receiving. Her troponin is elevated. I suspect this likely is related to hypoxemia she arrived with O2 saturation in the 60s. I explained to the family that this could also be related to her potentially having heart attac k causing her symptoms and findings. I informed him that treatment for this if it is of cardiac etiology would be a heart catheterization. I explained the procedure of heart cath to them. I explained this to both the and . At this time they feel that she is going through enough and they do not want this type of intervention. They said they do not want to be transferred and would prefer to medically manage and avoid heart catheterization at this time. I did call and speak with the patient's oncologist, Dr. Rosenberg, who agrees with the plan of starting patient antibiotics. He said that when the next dose of Zosyn is due that he would prefer it be switched to cefepime 2 g. He agrees with the vancomycin. Patient's heart rate has been more steady on the Cardizem drip. Is staying in the 120s-130s. Is no longer going into the 180s 190s. Blood pressures remained stable. Oxygen saturation is in the low to mid 90s. 03/04/19 08:03 She has spiked fever. We did give her rectal Tylenol. O2 saturations remained in the low 90s. Her work of breathing is much improved. I did readdress CODE STATUS with the patient and she wants to remain full code. I did speak with Dr. Zacarias who agrees to evaluate the patient for admission. Dictation of this chart was performed using voice recognition software; therefore, there may be some unintended grammatical errors. - Vital Signs Vital signs: Temp Pulse Resp BP Pulse Ox 102.8 F H 146 H 36 H 146/91 H 91 L 03/04/19 07:33 03/04/19 03:50 03/04/19 07:50 03/04/19 07:46 03/04/19 07:50 - Laboratory Result Diagrams: 03/04/19 04:12 04/04/19 04:12 Laboratory results interpreted by me: 03/04/19 03/04/19 03/04/19 04:09 04:12 04:12 WBC 0.7 L* RDW 14.3 H Plt Count 74 L Band Neutrophils % 12 H Abs Neuts (Manual) 0.4 L Abs Lymphs (Manual) 0.2 L ABG pH 7.48 H ABG pO2 53.2 L ABG HCO3 27.9 H ABG Total CO2 29.0 H ABG O2 Saturation 89.9 L Sodium Potassium Chloride Carbon Dioxide Glucose Lactic Acid 6.4 H Direct Bilirubin AST NT-Pro-B Natriuret Pep Total Protein Albumin 03/04/19 03/04/19 04:12 04:12 WBC RDW Plt Count Band Neutrophils % Abs Neuts (Manual) Abs Lymphs (Manual) ABG pH ABG pO2 ABG HCO3 ABG Total CO2 ABG O2 Saturation Sodium 133.3 L Potassium 3.0 L* Chloride 88 L Carbon Dioxide 32 H Glucose 205 H Lactic Acid Direct Bilirubin 0.5 H AST 86 H NT-Pro-B Natriuret Pep 2440 H Total Protein 6.1 L Albumin 3.2 L - EKG Interpretation by Me Additional EKG results interpreted by me: 03/04/19 04:09 EKG is reviewed and interpreted by me. EKG shows sinus tachycardia with a rate of [address] segment elevation or depression. No ischemic T wave inversions. NH interval, QRS duration, QT intervals are within normal range. No old EKG available for comparison. Critical Care Note - Critical Care Note Total time excluding time spent on procedures (mins): 65 Comments: Critical care time for this patient not including time spent in procedures approximately 65 minutes due to frequent re-evaluations, management of tachycardia, management of difficulty breathing, management of neutropenic fever. Discharge - Discharge Clinical Impression: Neutropenic fever, Tachycardia Dyspnea Qualifiers: Dyspnea type: unspecified Qualified Code(s): R06.00 - Dyspnea, unspecified Pneumonia Qualifiers: Pneumonia type: due to unspecified organism Laterality: bilateral Lung location: unspecified part of lung Qualified Code(s): J18.9 - Pneumonia, unspecified organism Condition: Serious Disposition: ADMITTED INPATIENT Admitting Provider: Hospitalist Unit Admitted: IMCU Referrals: JOAQUIM MCKEON MD [Primary Care Provider] - Follow up as needed
[2019-03-04 04:18] LABS: ARTERIAL BLOOD BASE EXCESS 4.3 mmol/L; ARTERIAL BLOOD H2CO3 1.15 mmol/L (1.05-1.35); ARTERIAL BLOOD HCO3 27.9 mmol/L (20-24); ARTERIAL BLOOD O2 SATURATION 89.9 % (94-98); ARTERIAL BLOOD PCO2 38.2 mmHg (35-45); ARTERIAL BLOOD PH 7.48 (7.35-7.45); ARTERIAL BLOOD PO2 53.2 mmHg (80-100)
[2019-03-04 04:27] LABS: ARTERIAL BLOOD FIO2 100%
[2019-03-04] MEDS ORDERED: PIPERACILLIN/TAZOBACTAM 3.375 GM VIAL IV ONE (04:40)
[2019-03-04] MEDS ORDERED: VANCOMYCIN HCL INJ 1000 MG VIAL IV ONE (04:40)
--- NOTE | 2019-03-04 04:45 | RADIOLOGY REPORT (SQ) ---
Chest single view on 03/04/2019 at 4:23 AM CLINICAL INDICATION: Shortness of breath COMPARISON: 01/16/2017 FINDINGS: Right IJ Port-A-Cath tip is in the SVC. A few overlying wires are noted. Mild cardiomegaly is noted. There are bilateral opacities consistent with developing edema and/or pneumonia. No bony abnormality is noted. IMPRESSION: Developing bilateral edema and/or pneumonia.
[2019-03-04 04:47] LABS: HEMATOCRIT 38.5 % (36.0-47.0); HEMOGLOBIN 12.8 g/dL (12.0-15.5); MEAN CORPUSCULAR HEMOGLOBIN 29.6 pg (27.0-33.4); MEAN CORPUSCULAR HGB CONC 33.3 g/dL (32.0-36.0); MEAN CORPUSCULAR VOLUME 89 fl (80-97); RED BLOOD COUNT 4.33 10^6/uL (3.72-5.28); RED CELL DISTRIBUTION WIDTH 14.3 % (11.5-14.0)
[2019-03-04 04:59] LABS: PLATELET COUNT 74 10^3/uL (150-450)
[2019-03-04 05:10] LABS: ALANINE AMINOTRANSFERASE 37 U/L (9-52); ALBUMIN 3.2 g/dL (3.5-5.0); ALKALINE PHOSPHATASE 104 U/L (38-126); ANION GAP 13 (5-19); ASPARTATE AMINO TRANSFERASE 86 U/L (14-36); BILIRUBIN,DIRECT 0.5 mg/dL (0.0-0.4); BLOOD UREA NITROGEN 13 mg/dL (7-20); CALCIUM 8.7 mg/dL (8.4-10.2); CARBON DIOXIDE 32 mmol/L (22-30); CHLORIDE 88 mmol/L (98-107); GLUCOSE 205 mg/dL (75-110); SODIUM 133.3 mmol/L (137-145); TOTAL PROTEIN 6.1 g/dL (6.3-8.2)
[2019-03-04 05:15] LABS: ABSOLUTE LYMPHOCYTES# (MANUAL) 0.2 10^3/uL (0.5-4.7); ABSOLUTE MONOCYTES # (MANUAL) 0.1 10^3/uL (0.1-1.4); ABSOLUTE NEUTROPHILS# (MANUAL) 0.4 10^3/uL (1.7-8.2); BASOPHILS % (MANUAL) 0 % (0-2); EOSINOPHILS % (MANUAL) 0 % (0-6); LYMPHOCYTES % (MANUAL) 28 % (13-45); MONOCYTES % (MANUAL) 12 % (3-13); SEGMENTED NEUTROPHILS % (MAN) 48 % (42-78); TOTAL CELLS COUNTED 50
[2019-03-04 05:18] LABS: ANISOCYTOSIS SLIGHT; PLATELET COMMENT DECREASED; TOXIC GRANULATION SLIGHT
[2019-03-04 05:20] LABS: NUCLEATED RED BLOOD CELLS 10 /100 WBC (0); WHITE BLOOD COUNT 0.7 10^3/uL (4.0-10.5)
[2019-03-04 05:21] LABS: BAND NEUTROPHILS % (MANUAL) 12 % (3-5)
[2019-03-04] MEDS: DILTIAZEM HCL/D5W 125 MG/125 ML RTUINJ IV PRN ×2 (05:21→13:31)
[2019-03-04] MEDS ORDERED: POTASSI CL 20 MEQ/50 ML RIDER 20 MEQ/50 ML RTUPB IV ONE (05:30)
[2019-03-04 05:46] LABS: TROPONIN I 0.192 ng/mL
[2019-03-04] MEDS ORDERED: NORMAL SALINE 1000 ML 1,000 ML IV ONE (06:15)
[2019-03-04] MEDS ORDERED: CEFEPIME 2 GM/D5W RTU 2 GM/50 ML RTUPB IV ONE (06:17)
[2019-03-04] MEDS ORDERED: ACETAMINOPHEN 650 MG SUPP.RECT PR ONE (07:31)
--- NOTE | 2019-03-04 07:52 | EKG REPORT ---
SEVERITY:- ABNORMAL ECG - SINUS TACHYCARDIA ATRIAL PREMATURE COMPLEX RIGHT VENTRICULAR HYPERTROPHY INFERIOR INFARCT, AGE INDETERMINATE : Confirmed by: Alfonso Talley MD 04-Mar-2019 07:52:04
[2019-03-04] MEDS ORDERED: IPRATROPIUM BROMIDE 0.02% NEB 0.5 MG/2.5 ML AMPUL NEB PRN (08:38)
[2019-03-04] MEDS ORDERED: ACETAMINOPHEN 325 MG TABLET PO PRN (08:38)
[2019-03-04] MEDS ORDERED: PHARMACY COMMUNICATION ORDER MC NR (08:45)
[2019-03-04] MEDS ORDERED: (PENDING PHARMACY ID) (Zolpidem Tartrate [Ambien] 10 MG) PO PRN (08:58)
[2019-03-04] MEDS ORDERED: VANCOMYCIN HCL 0 MG in DEXTROSE 5%-WATER 250 ML IV NR (09:00)
[2019-03-04] MEDS ORDERED: ACETAMINOPHEN 650 MG SUPP.RECT PR PRN (09:01)
[2019-03-04] MEDS ORDERED: MORPHINE SULFATE 10 MG/ML INJ IV PRN ×2 (09:01)
[2019-03-04] MEDS ORDERED: ALBUTEROL SULFATE 0.083% NEB 2.5 MG/3 ML AMPUL NEB PRN (09:05)
[2019-03-04] MEDS ORDERED: IBUPROFEN 600 MG TABLET PO PRN (09:09)
[2019-03-04] MEDS ORDERED: ZOLPIDEM TARTRATE 5 MG TABLET PO PRN (09:14)
[2019-03-04 09:34] LABS: APPEARANCE,URINE SLIGHTLY-CLOUDY; BILIRUBIN,URINE NEGATIVE (NEGATIVE); COLOR,URINE YELLOW; GLUCOSE, URINE NEGATIVE (NEGATIVE); KETONES,URINE NEGATIVE (NEGATIVE); LEUKOCYTE ESTERASE,URINE NEGATIVE (NEGATIVE); NITRITE,URINE NEGATIVE (NEGATIVE); PROTEIN,URINE 100 mg/dL (NEGATIVE); URINE SPECIFIC GRAVITY 1.023
[2019-03-04] MEDS ORDERED: SERTRALINE HCL 50 MG TABLET PO SCH (10:00)
[2019-03-04] MEDS ORDERED: CEFEPIME 2 GM/D5W RTU 2 GM/50 ML RTUPB IV SCH ×2 (10:00)
[2019-03-04] MEDS ORDERED: LEVOTHYROXINE SODIUM 0.1 MG TABLET PO SCH (10:00)
[2019-03-04] MEDS ORDERED: COLLAGENASE CLOSTRIDIUM HIST. OINT 30 GM TP SCH (10:00)
[2019-03-04] MEDS: GUAIFENESIN 600 MG TABLET.SA PO SCH ×2 (10:43→21:10)
[2019-03-04 10:44] LABS: ARTERIAL BLOOD BASE EXCESS 8.7 mmol/L; ARTERIAL BLOOD H2CO3 1.09 mmol/L (1.05-1.35); ARTERIAL BLOOD HCO3 31.3 mmol/L (20-24); ARTERIAL BLOOD O2 SATURATION 88.9 % (94-98); ARTERIAL BLOOD PCO2 36.1 mmHg (35-45); ARTERIAL BLOOD PH 7.56 (7.35-7.45); ARTERIAL BLOOD PO2 47.8 mmHg (80-100); ARTERIAL BLOOD TOTAL CO2 32.4 mmol/L (21-25)
[2019-03-04 10:45] LABS: ARTERIAL BLOOD FIO2 100%
[2019-03-04] MEDS ORDERED: CEFTRIAXONE 2 GM/D5W RTU 2 GM/50 ML RTUPB IV ONE (10:54)
[2019-03-04] MEDS ORDERED: RINGERS SOLUTION,LACTATED 1,000 ML IV PRN (10:56)
[2019-03-04] MEDS ORDERED: VANCOMYCIN HCL 1,500 MG in DEXTROSE 5%-WATER 250 ML IV ONE (11:00)
[2019-03-04 11:21] LABS: URINE AMPHETAMINES SCREEN NEGATIVE; URINE BARBITURATES SCREEN NEGATIVE; URINE BENZODIAZEPINES SCREEN NEGATIVE; URINE COCAINE SCREEN NEGATIVE; URINE MARIJUANA (THC) SCREEN NEGATIVE; URINE METHADONE SCREEN NEGATIVE; URINE PHENCYCLIDINE SCREEN NEGATIVE
[2019-03-04 11:55] LABS: PATH REVIEW PATHOLOGIST REVIEWED
--- NOTE | 2019-03-04 12:56 | PDOC CONSULTATION ---
Consultation Consult Date: 03/04/19 Attending physician:: ОЛЕГ PLASCENCIA Consult reason:: Stage IV breast ca here w/ resp failure, sepsis, fever History of Present Illness Admission Date/PCP: 03/04/19 08:26 JOAQUIM MCKEON MD Patient complains of: Fever, chills, SOB, weakness History of Present Illness: NORMA SEVILLA is a 49 year old female w/ known hx of stage IV breast ca, multiple chest wall lesions, pleural mets w/ effusion, liver mets, brain mets s/p gamma knife completed to brain now 3 wks ago. We gave her cycle #1 of 2nd line chemotherapy with HALAVEN, day #8 1 wk ago. She had progressive HAYES/SOB over last 24 hours, called me this am noted she was in resp distress while on home 02, instructed him to bring her to ED. Here she was satting only 60% on 2L, inc to 6L but still only satting low 80s so placed on BIPAP. RR was high and pt was tiring so initially ED physician and subsequent hospitalist both spoke with who initially wanted to approach with intubation. I saw pt at bedside, spoke with pt and at length. Nurse was at bedside also. She voiced to us that she was tired, she asked prognosis, we had a discussion about this. She noted that she would not want intubation if there was not a good chance of recovery and that she felt that she was ready to just be comfortable. was initially unsure of this approach but after discussion he seemed to accept pt's decision. I placed DNR on chart. Past Medical History Cardiac Medical History: Reports: Myocardial Infarction - EKG SHOWS OLD; PT UNAWARE Denies: Coronary Artery Disease, Hypertension Pulmonary Medical History: Reports: Sleep Apnea Denies: Asthma, Bronchitis, Chronic Obstructive Pulmonary Disease (COPD), Pneumonia Neurological Medical History: Denies: Seizures Endocrine Medical History: Reports: Hypothyroidism Malignancy Medical History: Reports: Breast Cancer - left breast cancer metastatic to the axilla status post neoadjuvant therapy Musculoskeltal Medical History: Reports: Arthritis - hands and knees BACK Psychiatric Medical History: Reports: Depression Hematology: Denies: Anemia Past Surgical History Past Surgical History: Reports: Orthopedic Surgery - R SHOULDER REPLACEMENT, Tubal Ligation, Other - mastectomy Social History Information Source: Patient Smoking Status: Never Smoker Frequency of Alcohol Use: None Hx Recreational Drug Use: No - Advance Directive Resuscitation Status: Do Not Resuscitate Family History Family History: Hypertension Parental Family History Reviewed: Yes Children Family History Reviewed: Yes Sibling(s) Family History Reviewed.: Yes Medication/Allergy Home Medications: Levothyroxine Sodium [Synthroid] 200 mcg PO DAILY 10/15/17 Sertraline HCl [Zoloft 50 mg Tablet] 50 mg PO DAILY 10/15/17 Zolpidem Tartrate [Ambien] 10 mg PO HSP PRN 10/15/17 Ondansetron HCl [Zofran 8 mg Tablet] 8 mg PO Q8HP PRN 03/04/19 Oxycodone HCl [Oxy-Ir 5 mg Tablet] 1 - 2 tab PO Q4HP PRN 03/04/19 Allergies/Adverse Reactions: hydrocodone Adverse Reaction (Verified 03/04/19 04:26) Generalized Itching Review of Systems Constitutional: PRESENT: anorexia, fatigue, weakness, weight loss Cardiovascular: PRESENT: dyspnea on exertion Respiratory: PRESENT: cough, dyspnea Gastrointestinal: ABSENT: abdominal pain, constipation, diarrhea, hematemesis, hematochezia, nausea, vomiting Musculoskeletal: ABSENT: joint swelling Neurological: PRESENT: abnormal gait, lack of coordination, weakness Physical Exam Vital Signs: Temp Pulse Resp BP Pulse Ox 102.0 F H 131 H 42 H 153/134 H 90 L 03/04/19 10:18 03/04/19 12:27 03/04/19 12:27 03/04/19 10:18 03/04/19 10:20 Intake & Output 03/03/19 03/04/19 03/05/19 06:59 06:59 06:59 Intake Total 2 774 Balance 2 774 Weight 99.79 kg 98.1 kg General appearance: PRESENT: mild distress - 2nd SOB Head exam: PRESENT: atraumatic Mouth exam: PRESENT: dry mucosa Respiratory exam: PRESENT: accessory muscle use Cardiovascular exam: PRESENT: tachycardia GI/Abdominal exam: PRESENT: normal bowel sounds, soft. ABSENT: distended, guarding, mass, organolmegaly, rebound, tenderness Rectal exam: PRESENT: deferred Neurological exam: PRESENT: alert, altered, awake, oriented to person, oriented to place, oriented to time, oriented to situation Psychiatric exam: PRESENT: anxious Results Laboratory Results: 03/04/19 04:12 03/04/19 04:12 0403/04/19 03/04/19 04:09 04:12 04:12 WBC 0.7 L* RBC 4.33 Hgb 12.8 Hct 38.5 MCV 89 MCH 29.6 MCHC 33.3 RDW 14.3 H Plt Count 74 L Seg Neutrophils % Not Reportable Lymphocytes % Not Reportable Monocytes % Not Reportable Eosinophils % Not Reportable Basophils % Not Reportable Absolute Neutrophils Not Reportable Absolute Lymphocytes Not Reportable Absolute Monocytes Not Reportable Absolute Eosinophils Not Reportable Absolute Basophils Not Reportable Carbonic Acid 1.15 HCO3/H2CO3 Ratio 24:1 ABG pH 7.48 H ABG pCO2 38.2 ABG pO2 53.2 L ABG HCO3 27.9 H ABG O2 Saturation 89.9 L ABG Base Excess 4.3 FiO2 100% Sodium Potassium Chloride Carbon Dioxide Anion Gap BUN Creatinine Est GFR ( Amer) Est GFR (Non-Af Amer) Glucose Lactic Acid 6.4 H Calcium Total Bilirubin AST ALT Alkaline Phosphatase Total Protein Albumin Urine Color Urine Appearance Urine pH Ur Specific [place] Urine Protein Urine Glucose (UA) Urine Ketones Urine Blood Urine Nitrite Ur Leukocyte Esterase Urine WBC (Auto) Urine RBC (Auto) 03/04/19 03/04/19 03/04/19 04:12 07:55 08:50 WBC RBC Hgb Hct MCV MCH MCHC RDW Plt Count Seg Neutrophils % Lymphocytes % Monocytes % Eosinophils % Basophils % Absolute Neutrophils Absolute Lymphocytes Absolute Monocytes Absolute Eosinophils Absolute Basophils Carbonic Acid HCO3/H2CO3 Ratio ABG pH ABG pCO2 ABG pO2 ABG HCO3 ABG O2 Saturation ABG Base Excess FiO2 Sodium 133.3 L Potassium 3.0 L* Chloride 88 L Carbon Dioxide 32 H Anion Gap 13 BUN 13 Creatinine 0.72 Est GFR ( Amer) > 60 Est GFR (Non-Af Amer) > 60 Glucose 205 H Lactic Acid 2.7 H Calcium 8.7 Total Bilirubin 1.0 AST 86 H ALT 37 Alkaline Phosphatase 104 Total Protein 6.1 L Albumin 3.2 L Urine Color YELLOW Urine Appearance SLIGHTLY-CLOUDY Urine pH 6.0 Ur Specific [place] 1.023 Urine Protein 100 H Urine Glucose (UA) NEGATIVE Urine Ketones NEGATIVE Urine Blood NEGATIVE Urine Nitrite NEGATIVE Ur Leukocyte Esterase NEGATIVE Urine WBC (Auto) 27 Urine RBC (Auto) 18 03/04/19 10:10 WBC RBC Hgb Hct MCV MCH MCHC RDW Plt Count Seg Neutrophils % Lymphocytes % Monocytes % Eosinophils % Basophils % Absolute Neutrophils Absolute Lymphocytes Absolute Monocytes Absolute Eosinophils Absolute Basophils Carbonic Acid 1.09 HCO3/H2CO3 Ratio 28:1 ABG pH 7.56 H ABG pCO2 36.1 ABG pO2 47.8 L ABG HCO3 31.3 H ABG O2 Saturation 88.9 L ABG Base Excess 8.7 FiO2 100% Sodium Potassium Chloride Carbon Dioxide Anion Gap BUN Creatinine Est GFR ( Amer) Est GFR (Non-Af Amer) Glucose Lactic Acid Calcium Total Bilirubin AST ALT Alkaline Phosphatase Total Protein Albumin Urine Color Urine Appearance Urine pH Ur Specific [place] Urine Protein Urine Glucose (UA) Urine Ketones Urine Blood Urine Nitrite Ur Leukocyte Esterase Urine WBC (Auto) Urine RBC (Auto) 03/04/19 04:12 Troponin I 0.192 NT-Pro-B Natriuret Pep 2440 H Impressions: Chest X-Ray 03/04/19 04:08 IMPRESSION: Developing bilateral edema and/or pneumonia. Assessment & Plan - Diagnosis (1) Neutropenic fever Is this a current diagnosis for this admission?: Yes Plan: Pt currently on broad spectrum atbx. Continue for now, is to contact rest of family. IF pt worsens, will not escalate care beyond current atbx. If and family ready to d/c all therapy, we would support decision. (2) Acute and chronic respiratory failure with hypoxia Is this a current diagnosis for this admission?: Yes Plan: 2nd to lung involvement w/ breast ca and likely pneumonia also. Con't w/ BIPAP but will not escalate care. (3) Pneumonia Qualifiers: Pneumonia type: due to unspecified organism Laterality: bilateral Lung location: lower lobe of lung Qualified Code(s): J18.1 - Lobar pneumonia, unspecified organism Is this a current diagnosis for this admission?: Yes Plan: Immunocompromised, cont broad spec atbx until and family ready for full comfort care. (4) Breast cancer, left Qualifiers: Breast location: upper outer quadrant of breast Estrogen receptor status: negative Patient sex: female Qualified Code(s): C50.412 - Malignant neoplasm of upper-outer quadrant of left female breast; Z17.1 - Estrogen receptor negative status [ER-] Is this a current diagnosis for this admission?: Yes Plan: Stage IV breast ca, will not continued any further chemo/rx. Hospice and comfort care appropriate. is coming to this realization. Continue atbx and BIPAP for now. WOuld not escalate further. Follow for next 24 hours and when and family ready, can proceed w/ comfort measures - Time Time Spent: Greater than 70 Minutes - Inpatient Certification Based on my medical assessment, after consideration of the patient's comorbid ities, presenting symptoms, or acuity I expect that the services needed warrant INPATIENT care.: Yes I certify that my determination is in accordance with my understanding of Medicare's requirements for reasonable and necessary INPATIENT services [42 CFR 412.3e].: Yes Medical Necessity: Need For Continuous Telemetry Monitoring, Need for IV Antibiotics, Risk of Complication if Not Cared For in Hospital, Risk of Diagnosis Which Will Require Inpatient Eval/Care/Monitoring
--- NOTE | 2019-03-04 12:57 | ADVANCED CARE ---
- Diagnosis (1) Neutropenic fever Diagnosis Current: Yes (2) Acute and chronic respiratory failure with hypoxia Diagnosis Current: Yes (3) Pneumonia Diagnosis Current: Yes (4) Breast cancer, left Diagnosis Current: Yes Resuscitation Status: Do Not Resuscitate Discussion: Discussed w/ pt and family as described in consult note Time Spent: >70 min
[2019-03-04] MEDS ORDERED: HEPARIN SOD (PORCINE) 5,000 UNIT/ML 1 ML SYRINGE SUBCUT SCH (14:00)
[2019-03-04] MEDS: CEFEPIME 2 GM/D5W RTU 2 GM/50 ML RTUPB IV SCH ×2 (15:04→21:09)
[2019-03-04] MEDS: POTASSIUM CHLORIDE 20 MEQ/50 ML RTU IV SCH ×3 (15:05→21:08)
--- NOTE | 2019-03-04 15:23 | PDOC CONSULTATION ---
Consultation Consult Date: 03/04/19 Attending physician:: ОЛЕГ PLASCENCIA Consult reason:: ARDS History of Present Illness Admission Date/PCP: 03/04/19 08:26 JOAQUIM MCKEON MD History of Present Illness: NORMA SEVILLA is a 49 year old female fortunately she has stage IV advanced metastatic breast cancer affecting her pleura as well as the lungs against she had a chemotherapy recently apparently causing her leukopenia and thrombocytopenia current white count is 0.7 thousand platelet count 74,003 profoundly tachypneic and hypoxemic and is a PaO2/FiO2 ratio of 47 FiO2 of 100% radiograph is consistent with ARDS. Due to her advanced disease her condition was discussed with her spouse and Dr. Bernardino Rosenberg and was at felt that this time she should be a DNR prior interventions with BiPAP had limited to no success. Her prognosis is poor Past Medical History Cardiac Medical History: Reports: Myocardial Infarction - EKG SHOWS OLD; PT UNAWARE Denies: Coronary Artery Disease, Hypertension Pulmonary Medical History: Reports: Sleep Apnea Denies: Asthma, Bronchitis, Chronic Obstructive Pulmonary Disease (COPD), Pneumonia Neurological Medical History: Denies: Seizures Endocrine Medical History: Reports: Hypothyroidism Malignancy Medical History: Reports: Breast Cancer - left breast cancer metastatic to the axilla status post neoadjuvant therapy Musculoskeltal Medical History: Reports: Arthritis - hands and knees BACK Psychiatric Medical History: Reports: Depression Hematology: Denies: Anemia Past Surgical History Past Surgical History: Reports: Orthopedic Surgery - R SHOULDER REPLACEMENT, Tubal Ligation Social History Smoking Status: Unknown if Ever Smoked Family History Family History: Hypertension Parental Family History Reviewed: No Children Family History Reviewed: No Sibling(s) Family History Reviewed.: No Medication/Allergy Home Medications: Levothyroxine Sodium [Synthroid] 200 mcg PO DAILY 10/15/17 Sertraline HCl [Zoloft 50 mg Tablet] 50 mg PO DAILY 10/15/17 Zolpidem Tartrate [Ambien] 10 mg PO HSP PRN 10/15/17 Ondansetron HCl [Zofran 8 mg Tablet] 8 mg PO Q8HP PRN 03/04/19 Oxycodone HCl [Oxy-Ir 5 mg Tablet] 1 - 2 tab PO Q4HP PRN 03/04/19 Allergies/Adverse Reactions: hydrocodone Adverse Reaction (Verified 03/04/19 04:26) Generalized Itching Review of Systems ROS unobtainable: Due to mental status Physical Exam Vital Signs: Temp Pulse Resp BP Pulse Ox 102.8 F H 146 H 35 H 117/89 H 87 L 03/04/19 07:33 03/04/19 03:50 03/04/19 08:55 03/04/19 08:50 03/04/19 08:55 Intake & Output 03/03/19 03/04/19 03/05/19 06:59 06:59 06:59 Intake Total 2 76 Balance 2 76 Weight 99.79 kg General appearance: PRESENT: disheveled, mild distress, morbidly obese Head exam: PRESENT: atraumatic, normocephalic Eye exam: PRESENT: conjunctiva pale, EOMI. ABSENT: nystagmus, periorbital swelling Mouth exam: PRESENT: dry mucosa, neck supple, tongue midline Neck exam: ABSENT: carotid bruit, full ROM, JVD, lymphadenopathy, meningismus, tenderness, thyromegaly, tracheal deviation, tracheostomy, other Respiratory exam: PRESENT: crackles, decreased breath sounds, prolonged expiratory phas, rhonchi, tachypnea. ABSENT: retraction, stridor, unlabored Cardiovascular exam: PRESENT: RRR, rubs, +S2, tachycardia Pulses: PRESENT: normal radial pulses GI/Abdominal exam: PRESENT: soft. ABSENT: tenderness Gentrourinary exam: PRESENT: indwelling catheter Extremities exam: ABSENT: calf tenderness, clubbing, joint swelling Musculoskeletal exam: ABSENT: ambulatory, deformity, dislocation Neurological exam: PRESENT: altered, awake Psychiatric exam: PRESENT: flat affect Skin exam: PRESENT: dry, warm Results Laboratory Results: 03/04/19 04:12 03/04/19 04:12 03/04/19 03/04/19 03/04/19 04:09 04:12 04:12 WBC 0.7 L* RBC 4.33 Hgb 12.8 Hct 38.5 MCV 89 MCH 29.6 MCHC 33.3 RDW 14.3 H Plt Count 74 L Seg Neutrophils % Not Reportable Lymphocytes % Not Reportable Monocytes % Not Reportable Eosinophils % Not Reportable Basophils % Not Reportable Absolute Neutrophils Not Reportable Absolute Lymphocytes Not Reportable Absolute Monocytes Not Reportable Absolute Eosinophils Not Reportable Absolute Basophils Not Reportable Carbonic Acid 1.15 HCO3/H2CO3 Ratio 24:1 ABG pH 7.48 H ABG pCO2 38.2 ABG pO2 53.2 L ABG HCO3 27.9 H ABG O2 Saturation 89.9 L ABG Base Excess 4.3 FiO2 100% Sodium Potassium Chloride Carbon Dioxide Anion Gap BUN Creatinine Est GFR ( Amer) Est GFR (Non-Af Amer) Glucose Lactic Acid 6.4 H Calcium Total Bilirubin AST ALT Alkaline Phosphatase Total Protein Albumin Urine Color Urine Appearance Urine pH Ur Specific [place] Urine Protein Urine Glucose (UA) Urine Ketones Urine Blood Urine Nitrite Ur Leukocyte Esterase Urine WBC (Auto) Urine RBC (Auto) 03/04/19 03/04/19 03/04/19 04:12 07:55 08:50 WBC RBC Hgb Hct MCV MCH MCHC RDW Plt Count Seg Neutrophils % Lymphocytes % Monocytes % Eosinophils % Basophils % Absolute Neutrophils Absolute Lymphocytes Absolute Monocytes Absolute Eosinophils Absolute Basophils Carbonic Acid HCO3/H2CO3 Ratio ABG pH ABG pCO2 ABG pO2 ABG HCO3 ABG O2 Saturation ABG Base Excess FiO2 Sodium 133.3 L Potassium 3.0 L* Chloride 88 L Carbon Dioxide 32 H Anion Gap 13 BUN 13 Creatinine 0.72 Est GFR ( Amer) > 60 Est GFR (Non-Af Amer) > 60 Glucose 205 H Lactic Acid 2.7 H Calcium 8.7 Total Bilirubin 1.0 AST 86 H ALT 37 Alkaline Phosphatase 104 Total Protein 6.1 L Albumin 3.2 L Urine Color YELLOW Urine Appearance SLIGHTLY-CLOUDY Urine pH 6.0 Ur Specific [place] 1.023 Urine Protein 100 H Urine Glucose (UA) NEGATIVE Urine Ketones NEGATIVE Urine Blood NEGATIVE Urine Nitrite NEGATIVE Ur Leukocyte Esterase NEGATIVE Urine WBC (Auto) 27 Urine RBC (Auto) 18 03/04/19 04:12 Troponin I 0.192 NT-Pro-B Natriuret Pep 2440 H Impressions: Chest X-Ray 03/04/19 04:08 IMPRESSION: Developing bilateral edema and/or pneumonia. Assessment & Plan - Diagnosis (1) Acute and chronic respiratory failure with hypoxia Is this a current diagnosis for this admission?: Yes Plan: Patient is DNR able to successfully oxygenate with BiPAP (2) Pneumonia Qualifiers: Pneumonia type: due to unspecified organism Laterality: bilateral Lung location: lower lobe of lung Qualified Code(s): J18.1 - Lobar pneumonia, unspecified organism Is this a current diagnosis for this admission?: Yes Plan: No known etiology at this time 5/5 lobes involved radiographically (3) Breast cancer, left Qualifiers: Breast location: upper outer quadrant of breast Estrogen receptor status: negative Patient sex: female Qualified Code(s): C50.412 - Malignant neoplasm of upper-outer quadrant of left female breast; Z17.1 - Estrogen receptor negativ e status [ER-] Is this a current diagnosis for this admission?: Yes Plan: Stage IV please see oncology note (4) Sleep apnea syndrome Qualifiers: Sleep apnea type: unspecified type Qualified Code(s): G47.30 - Sleep apnea, unspecified Is this a current diagnosis for this admission?: Yes Plan: continue NIPPV - Time Total Critical Time (Minutes): 55
[2019-03-04 17:01] VITALS: BP 179/34
--- NOTE | 2019-03-04 21:10 | PDOC H&P ---
History of Present Illness Admission Date/PCP: 03/04/19 08:26 JOAQUIM MCKEON MD Patient complains of: Increased difficulty breathing, fever and productive cough History of Present Illness: NORMA SEVILLA is a 49 year old female with metastatic breast cancer. She is status post bilateral mastectomies and has metastases to both lungs, to the brain (treated with gamma knife therapy) as well as radiation ulcers at the left mastectomy site. The patient is actively receiving chemotherapy. The patient's reports that her last chemotherapy was approximately 6 days ago. She began to feel poorly after the treatment but over the last 3 days has drastically declined. She comes in with significantly increased work of breathing as well as fever and hypoxia. She was found to have a large right lung infiltrate. She was placed on BiPAP with an FiO2 of 100%. She was hypotensive but responded to fluids. She was referred to the hospitalist service for admission to the ICU. Past Medical History Cardiac Medical History: Reports: Myocardial Infarction - EKG SHOWS OLD; PT UNAWARE Denies: Coronary Artery Disease, Hypertension Pulmonary Medical History: Reports: Sleep Apnea Denies: Asthma, Bronchitis, Chronic Obstructive Pulmonary Disease (COPD), Pneumonia Neurological Medical History: Denies: Seizures Endocrine Medical History: Reports: Hypothyroidism, Other - Graves' disease status post thyroidectomy Renal/ Medical History: Denies: Chronic Kidney Disease Malignancy Medical History: Reports: Breast Cancer - left breast cancer metastatic to the axilla status post neoadjuvant therapy Musculoskeltal Medical History: Reports: Arthritis - hands and knees BACK Skin Medical History: Reports: Other - Left chest ulcer from radiation therapy. Psychiatric Medical History: Reports: Depression Hematology: Denies: Anemia Past Surgical History Past Surgical History: Reports: Section, Mastectomy - Bilateral, Orthopedic Surgery - R SHOULDER REPLACEMENT, Thyroidectomy, Tubal Ligation Social History Information Source: Patient, Relative - The patient's provided much of the information Lives with: Family Smoking Status: Former Smoker Frequency of Alcohol Use: None Hx Recreational Drug Use: No Drugs: None - Advance Directive Resuscitation Status: Full Code Surrogate healthcare decision maker:: Had a lengthy discussion with the patient's and the patient. The patient did have an elevated troponin with evidence on EKG of old infarct. The patient and her were emphatic about no cardiac catheterization but at this point wish to be full code. The is the designated decision maker if the patient is not capable of making decisions. No formal documentation is in place. Family History Family History: Hypertension, Malignancy Parental Family History Reviewed: Yes - Mother early in life. Patient did not know her father. Children Family History Reviewed: Yes Sibling(s) Family History Reviewed.: Yes - Sister with cancer Medication/Allergy Home Medications: Levothyroxine Sodium [Synthroid] 200 mcg PO DAILY 10/15/17 Sertraline HCl [Zoloft 50 mg Tablet] 50 mg PO DAILY 10/15/17 Zolpidem Tartrate [Ambien] 10 mg PO HSP PRN 10/15/17 Ondansetron HCl [Zofran 8 mg Tablet] 8 mg PO Q8HP PRN 03/04/19 Oxycodone HCl [Oxy-Ir 5 mg Tablet] 1 - 2 tab PO Q4HP PRN 03/04/19 Allergies/Adverse Reactions: hydrocodone Adverse Reaction (Verified 03/04/19 04:26) Generalized Itching Review of Systems ROS unobtainable: Other - Patient is very tachypneic and difficult to speak. BiPAP mask is in place. Constitutional: PRESENT: chills, fatigue, fever(s) Eyes: ABSENT: visual disturbances Ears: ABSENT: hearing changes Nose, Mouth, and Throat: ABSENT: mouth pain Cardiovascular: ABSENT: chest pain, palpitations Respiratory: PRESENT: cough, dyspnea, sputum. ABSENT: hemoptysis Gastrointestinal: PRESENT: constipation. ABSENT: abdominal pain, diarrhea, nausea, vomiting Genitourinary: ABSENT: difficulty urinating, dysuria, hematuria Musculoskeletal: PRESENT: other - Polyarthralgias Integumentary: PRESENT: wounds - Ulcerations at the site of the left mastectomy likely from radiation Neurological: ABSENT: abnormal movements, abnormal speech, memory loss, tremor(s ) Psychiatric: ABSENT: anxiety, depression, hallucinations Endocrine: ABSENT: cold intolerance, heat intolerance Hematologic/Lymphatic: ABSENT: easy bruising Physical Exam Vital Signs: Temp Pulse Resp BP Pulse Ox 102.8 F H 146 H 35 H 117/89 H 87 L 03/04/19 07:33 03/04/19 03:50 03/04/19 08:55 03/04/19 08:50 03/04/19 08:55 Intake & Output 03/03/19 03/04/19 03/05/19 06:59 06:59 06:59 Intake Total 2 76 Balance 2 76 Weight 99.79 kg General appearance: PRESENT: severe distress, well-developed Head exam: PRESENT: atraumatic, normocephalic Eye exam: PRESENT: conjunctiva pale, periorbital swelling, other - Left pupil with limited response to light. ABSENT: scleral icterus Ear exam: PRESENT: normal external ear exam Mouth exam: PRESENT: other - Did not assess Teeth exam: PRESENT: other - BiPAP mask in place Neck exam: PRESENT: other - Large neck. ABSENT: carotid bruit Respiratory exam: PRESENT: accessory muscle use, decreased breath sounds - Shallow breath sounds with limited inspiratory phase, rhonchi - Faint rhonchi on the right, tachypnea. ABSENT: rales, wheezes Cardiovascular exam: PRESENT: +S1, +S2, tachycardia GI/Abdominal exam: PRESENT: hypoactive bowel sounds, soft. ABSENT: distended, guarding, tenderness Rectal exam: PRESENT: deferred Gentrourinary exam: PRESENT: indwelling catheter Musculoskeletal exam: PRESENT: normal inspection Neurological exam: PRESENT: alert - Fatigued. Kept eyes closed for the most part likely due to significant tachypnea, awake, oriented to person, oriented to place, oriented to situation Psychiatric exam: PRESENT: flat affect. ABSENT: agitated, anxious Focused psych exam: ABSENT: delusional, restlessness Skin exam: PRESENT: other - Several open ulcerated areas on the left chest at the site of the mastectomy. This is irradiated tissue. There is no active drainage as the open areas are dried and crusted. Results Laboratory Results: 03/04/19 04:12 03/04/19 04:12 03/04/19 03/04/19 03/04/19 04:09 04:12 04:12 WBC 0.7 L* RBC 4.33 Hgb 12.8 Hct 38.5 MCV 89 MCH 29.6 MCHC 33.3 RDW 14.3 H Plt Count 74 L Seg Neutrophils % Not Reportable Lymphocytes % Not Reportable Monocytes % Not Reportable Eosinophils % Not Reportable Basophils % Not Reportable Absolute Neutrophils Not Reportable Absolute Lymphocytes Not Reportable Absolute Monocytes Not Reportable Absolute Eosinophils Not Reportable Absolute Basophils Not Reportable Carbonic Acid 1.15 HCO3/H2CO3 Ratio 24:1 ABG pH 7.48 H ABG pCO2 38.2 ABG pO2 53.2 L ABG HCO3 27.9 H ABG O2 Saturation 89.9 L ABG Base Excess 4.3 FiO2 100% Sodium Potassium Chloride Carbon Dioxide Anion Gap BUN Creatinine Est GFR ( Amer) Est GFR (Non-Af Amer) Glucose Lactic Acid 6.4 H Calcium Total Bilirubin AST ALT Alkaline Phosphatase Total Protein Albumin 03/04/19 03/04/19 04:12 07:55 WBC RBC Hgb Hct MCV MCH MCHC RDW Plt Count Seg Neutrophils % Lymphocytes % Monocytes % Eosinophils % Basophils % Absolute Neutrophils Absolute Lymphocytes Absolute Monocytes Absolute Eosinophils Absolute Basophils Carbonic Acid HCO3/H2CO3 Ratio ABG pH ABG pCO2 ABG pO2 ABG HCO3 ABG O2 Saturation ABG Base Excess FiO2 Sodium 133.3 L Potassium 3.0 L* Chloride 88 L Carbon Dioxide 32 H Anion Gap 13 BUN 13 Creatinine 0.72 Est GFR ( Amer) > 60 Est GFR (Non-Af Amer) > 60 Glucose 205 H Lactic Acid 2.7 H Calcium 8.7 Total Bilirubin 1.0 AST 86 H ALT 37 Alkaline Phosphatase 104 Total Protein 6.1 L Albumin 3.2 L 03/04/19 04:12 Troponin I 0.192 NT-Pro-B Natriuret Pep 2440 H Impressions: Chest X-Ray 03/04/19 04:08 IMPRESSION: Developing bilateral edema and/or pneumonia. Assessment and Plan - Diagnosis (1) Sepsis Qualifiers: Sepsis type: sepsis due to unspecified organism Qualified Code(s): A41.9 - Sepsis, unspecified organism Is this a current diagnosis for this admission?: Yes Plan: Patient has a large right sided pneumonia. She is severely neutropenic from her chemotherapy. There was no reported nausea and vomiting however aspiration could occur. With her severe neutropenia opportunistic bacteria are also a consideration. Because this is a bacterial pneumonia until proven otherwise the patient was started on vancomycin and cefepime. She did have hypotension that responded to IV fluids. Marked tachycardia requiring diltiazem infusion. Significantly increased work of breathing with severe hypoxia. On BiPAP with an FiO2 of 100% there was difficulty keeping the patient's oxygen saturation above 90%. She was febrile with a temperature above 102 F. (2) Acute respiratory failure with hypoxia Is this a current diagnosis for this admission?: Yes Plan: Despite BiPAP the oxygen saturation was marginal even with an FiO2 of 100%. He did have a long discussion with the patient and his about intubation in the current setting. Her degree of illness with underlying history could make it difficult to achieve extubation. The patient and his would like to remain full CODE STATUS at this time. The patient is going to be admitted to the ICU and there is a high probability of intubation. (3) Pneumonia Qualifiers: Pneumonia type: due to unspecified organism Laterality: bilateral Lung location: lower lobe of lung Qualified Code(s): J18.1 - Lobar pneumonia, unspecified organism Is this a current diagnosis for this admission?: Yes Plan: Considering the patient's severe neutropenia this is a bacterial pneumonia until proven otherwise. It could be community-acquired bacteria such as Streptococcus versus opportunistic organisms including oral michelle from silent aspiration. The patient will be placed on vancomycin and cefepime. Nebulizer treatments will be available as needed. (4) Elevated troponin I level Is this a current diagnosis for this admission?: Yes Plan: The EKG demonstrated an inferior infarct of undetermined age. The patient does not recall a myocardial infarction. The troponin is elevated at 0.19. We will perform serial troponins as this may help in selection of medications to treat the patient. She is on diltiazem infusion for the marked tachycardia. (5) Hypotension Qualifiers: Hypotension type: other hypotension type Qualified Code(s): I95.89 - Other hypotension Is this a current diagnosis for this admission?: Yes Plan: Hypotension due to sepsis and possible hypovolemia. The patient did respond to IV fluids but she is a full code and vasopressors will be instituted if we are not able to maintain reasonable blood pressure. Hopefully slowing the heart rate will also improve her underlying blood pressure. (6) Neutropenic fever Is this a current diagnosis for this admission?: Yes Plan: Marked neutropenia with a white blood cell count of 0.4. She will be on neutropenic precautions including neutropenic diet. Tylenol has not been terribly effective. I have ordered ibuprofen to be available as well. She may need a cooling blanket. (7) Lactic acidemia Is this a current diagnosis for this admission?: Yes Plan: The patient exhibits marked lactic acidosis with a serum lactic acid level of 6.4. She is getting IV fluids and we will recheck a lactic acid level in 4-5 hours. (8) Tachycardia Is this a current diagnosis for this admission?: Yes Plan: The patient is on a diltiazem infusion. We will increase the dose slowly. If she becomes hypotensive we will add pressor therapy. If she tolerates we will continue to increase. Hopefully with better rate control her blood pressure was improved as well. This is a response to her sepsis and fluids and antibiotic therapy have been started as well. (9) Thrombocytopenia Is this a current diagnosis for this admission?: Yes Plan: The patient's platelet count is only 74,000. She is receiving chemotherapy so it is difficult to know which factor is predominant. We will monitor her platelet count and watch for evidence of bleeding. (10) Breast cancer metastasized to lung Qualifiers: Laterality: left Qualified Code(s): C50.912 - Malignant neoplasm of unspecified site of left female breast; C78.02 - Secondary malignant neoplasm of left lung Is this a current diagnosis for this admission?: Yes Plan: The patient is being treated for metastases to both lungs. Unfortunately she also has had metastatic disease to the brain that was treated with gamma knife therapy. There are ulcerations on the skin at the site of the left mastectomy. These are likely radiation induced. The radiation tissue is extremely hard to heal up. I have ordered Santyl to the wound beds with protective covering to try and soften the surface of the lesion and attempt to promote healing. (11) Hypokalemia Is this a current diagnosis for this admission?: Yes Plan: Serum potassium is only 3.0. With aggressive hydration expect her serum potassium to decrease. We will supplement potassium and place the patient on an electrolyte replacement protocol in the ICU. - Time Time Spent with patient: 90 minutes Time Spent with patient: 35 or more minutes Medications reviewed and adjusted accordingly: Yes - Inpatient Certification Based on my medical assessment, after consideration of the patient's comorbidities, presenting symptoms, or acuity I expect that the services needed warrant INPATIENT care.: Yes I certify that my determination is in accordance with my understanding of Medicare's requirements for reasonable and necessary INPATIENT services [42 CFR 412.3e].: Yes Medical Necessity: Significant Comorbidiites Make Outpatient Treatment Too Risky, Need Close Monitoring Due to Risk of Patient Decompensation, Need For IV Fluids, Need For Continuous Telemetry Monitoring, Need for Pain Control, Need for IV Antibiotics
--- NOTE | 2019-03-04 21:19 | PDOC PROGRESS REPORT ---
Subjective Progress Note for:: 03/04/19 Subjective:: I was called to see the patient. She is not responding to aggressive therapy and remains extremely tachypneic with tachycardia and hypoxia. She is not responding to BiPAP with an FiO2 of 100%. Dr. Rosenberg did see the patient after I saw her for the admission. He had a long talk with the family. The patient in fact asks about her life expectancy and prognosis. Based on that discussion the patient is now DO NOT RESUSCITATE/DO NOT INTUBATE. Unfortunately we are not making any headway with our aggressive regimen. Reason For Visit: PNEUMONIA,SEPSIS,NEUTROPENIA,THROMBOCYTOPENIA, Physical Exam Vital Signs: Temp Pulse Resp BP Pulse Ox 104.0 F H 136 H 45 H 179/34 H 78 L 03/04/19 16:00 03/04/19 16:00 03/04/19 16:39 03/04/19 16:00 03/04/19 16:00 Intake & Output 03/03/19 03/04/19 03/05/19 06:59 06:59 06:59 Intake Total 2 2046 Output Total 225 Balance 2 1821 Weight 99.79 kg 98.1 kg General appearance: PRESENT: severe distress Respiratory exam: PRESENT: accessory muscle use, rhonchi - On the right. Slightly more prominent., tachypnea. ABSENT: rales, wheezes Cardiovascular exam: PRESENT: tachycardia - Marked tachycardia with decreased heart sounds GI/Abdominal exam: PRESENT: hypoactive bowel sounds, soft. ABSENT: distended, guarding, tenderness Rectal exam: PRESENT: deferred Neurological exam: PRESENT: alert, awake, oriented to person, oriented to place, oriented to situation Psychiatric exam: PRESENT: appropriate affect - Affect reflects her current clinical condition. ABSENT: agitated, anxious Results Laboratory Results: 03/04/19 04:12 03/04/19 04:12 03/04/19 03/04/19 03/04/19 04:09 04:12 04:12 WBC 0.7 L* RBC 4.33 Hgb 12.8 Hct 38.5 MCV 89 MCH 29.6 MCHC 33.3 RDW 14.3 H Plt Count 74 L Seg Neutrophils % Not Reportable Lymphocytes % Not Reportable Monocytes % Not Reportable Eosinophils % Not Reportable Basophils % Not Reportable Absolute Neutrophils Not Reportable Absolute Lymphocytes Not Reportable Absolute Monocytes Not Reportable Absolute Eosinophils Not Reportable Absolute Basophils Not Reportable Carbonic Acid 1.15 HCO3/H2CO3 Ratio 24:1 ABG pH 7.48 H ABG pCO2 38.2 ABG pO2 53.2 L ABG HCO3 27.9 H ABG O2 Saturation 89.9 L ABG Base Excess 4.3 FiO2 100% Sodium Potassium Chloride Carbon Dioxide Anion Gap BUN Creatinine Est GFR ( Amer) Est GFR (Non-Af Amer) Glucose Lactic Acid 6.4 H Calcium Total Bilirubin AST ALT Alkaline Phosphatase Total Protein Albumin Urine Color Urine Appearance Urine pH Ur Specific [place] Urine Protein Urine Glucose (UA) Urine Ketones Urine Blood Urine Nitrite Ur Leukocyte Esterase Urine WBC (Auto) Urine RBC (Auto) 03/04/19 03/04/19 03/04/19 04:12 07:55 08:50 WBC RBC Hgb Hct MCV MCH MCHC RDW Plt Count Seg Neutrophils % Lymphocytes % Monocytes % Eosinophils % Basophils % Absolute Neutrophils Absolute Lymphocytes Absolute Monocytes Absolute Eosinophils Absolute Basophils Carbonic Acid HCO3/H2CO3 Ratio ABG pH ABG pCO2 ABG pO2 ABG HCO3 ABG O2 Saturation ABG Base Excess FiO2 Sodium 133.3 L Potassium 3.0 L* Chloride 88 L Carbon Dioxide 32 H Anion Gap 13 BUN 13 Creatinine 0.72 Est GFR ( Amer) > 60 Est GFR (Non-Af Amer) > 60 Glucose 205 H Lactic Acid 2.7 H Calcium 8.7 Total Bilirubin 1.0 AST 86 H ALT 37 Alkaline Phosphatase 104 Total Protein 6.1 L Albumin 3.2 L Urine Color YELLOW Urine Appearance SLIGHTLY-CLOUDY Urine pH 6.0 Ur Specific [place] 1.023 Urine Protein 100 H Urine Glucose (UA) NEGATIVE Urine Ketones NEGATIVE Urine Blood NEGATIVE Urine Nitrite NEGATIVE Ur Leukocyte Esterase NEGATIVE Urine WBC (Auto) 27 Urine RBC (Auto) 18 03/04/19 10:10 WBC RBC Hgb Hct MCV MCH MCHC RDW Plt Count Seg Neutrophils % Lymphocytes % Monocytes % Eosinophils % Basophils % Absolute Neutrophils Absolute Lymphocytes Absolute Monocytes Absolute Eosinophils Absolute Basophils Carbonic Acid 1.09 HCO3/H2CO3 Ratio 28:1 ABG pH 7.56 H ABG pCO2 36.1 ABG pO2 47.8 L ABG HCO3 31.3 H ABG O2 Saturation 88.9 L ABG Base Excess 8.7 FiO2 100% Sodium Potassium Chloride Carbon Dioxide Anion Gap BUN Creatinine Est GFR ( Amer) Est GFR (Non-Af Amer) Glucose Lactic Acid Calcium Total Bilirubin AST ALT Alkaline Phosphatase Total Protein Albumin Urine Color Urine Appearance Urine pH Ur Specific [place] Urine Protein Urine Glucose (UA) Urine Ketones Urine Blood Urine Nitrite Ur Leukocyte Esterase Urine WBC (Auto) Urine RBC (Auto) 03/04/19 04:12 Troponin I 0.192 NT-Pro-B Natriuret Pep 2440 H Impressions: Chest X-Ray 03/04/19 04:08 IMPRESSION: Developing bilateral edema and/or pneumonia. Assessment and Plan - Diagnosis (1) Sepsis Qualifiers: Sepsis type: sepsis due to unspecified organism Qualified Code(s): A41.9 - Sepsis, unspecified organism Is this a current diagnosis for this admission?: Yes Plan: Patient has a large right sided pneumonia. She is severely neutropenic from her chemotherapy. There was no reported nausea and vomiting however aspiration could occur. With her severe neutropenia opportunistic bacteria are also a consideration. Because this is a bacterial pneumonia until proven otherwise the patient was started on vancomycin and cefepime. She did have hypotension that responded to IV fluids. Marked tachycardia requiring diltiazem infusion. Significantly increased work of breathing with severe hypoxia. On BiPAP with an FiO2 of 100% there was difficulty keeping the patient's oxygen saturation above 90%. She was febrile with a temperature above 102 F. Afternoon encounter: Despite fluids patient is still markedly tachycardic and tachypneic. Her lactic acid level has improved. See discussion below. (2) Acute respiratory failure with hypoxia Is this a current diagnosis for this admission?: Yes Plan: Despite BiPAP the oxygen saturation was marginal even with an FiO2 of 100%. He did have a long discussion with the patient and his about intubation in the current setting. Her degree of illness with underlying history could make it difficult to achieve extubation. The patient and his would like to remain full CODE STATUS at this time. The patient is going to be admitted to the ICU and there is a high probability of intubation. (3) Pneumonia Qualifiers: Pneumonia type: due to unspecified organism Laterality: bilateral Lung location: lower lobe of lung Qualified Code(s): J18.1 - Lobar pneumonia, unspecified organism Is this a current diagnosis for this admission?: Yes Plan: Considering the patient's severe neutropenia this is a bacterial pneumonia until proven otherwise. It could be community-acquired bacteria such as Streptococcus versus opportunistic organisms including oral michelle from silent aspiration. The patient will be placed on vancomycin and cefepime. Nebulizer treatments will be available as needed. (4) Elevated troponin I level Is this a current diagnosis for this admission?: Yes Plan: The EKG demonstrated an inferior infarct of undetermined age. The patient does not recall a myocardial infarction. The troponin is elevated at 0.19. We will perform serial troponins as this may help in selection of medications to treat the patient. She is on diltiazem infusion for the marked tachycardia. (5) Hypotension Qualifiers: Hypotension type: other hypotension type Qualified Code(s): I95.89 - Other hypotension Is this a current diagnosis for this admission?: Yes Plan: Hypotension due to sepsis and possible hypovolemia. The patient did respond to IV fluids but she is a full code and vasopressors will be instituted if we are not able to maintain reasonable blood pressure. Hopefully slowing the heart rate will also improve her underlying blood pressure. (6) Neutropenic fever Is this a current diagnosis for this admission?: Yes Plan: Marked neutropenia with a white blood cell count of 0.4. She will be on neutropenic precautions including neutropenic diet. Tylenol has not been terribly effective. I have ordered ibuprofen to be available as well. She may need a cooling blanket. (7) Lactic acidemia Is this a current diagnosis for this admission?: Yes Plan: Repeat lactic acid was down to 2.7 (8) Tachycardia Is this a current diagnosis for this admission?: Yes Plan: No improvement on diltiazem infusion (9) Thrombocytopenia Is this a current diagnosis for this admission?: Yes (10) Breast cancer metastasized to lung Qualifiers: Laterality: left Qualified Code(s): C50.912 - Malignant neoplasm of unspecified site of left female breast; C78.02 - Secondary malignant neoplasm of left lung Is this a current diagnosis for this admission?: Yes (11) Hypokalemia Is this a current diagnosis for this admission?: Yes - Time Total Critical Time (Minutes): 40 Medications reviewed and adjusted accordingly: Yes - Plan Summary Plan Summary: I was called to see the patient as she was not improving and in fact slightly deteriorating. She was not responding to antipyretic medications. It was difficult to keep her pulse ox readings above 90 and she remained very tachycardic. I reviewed with the patient the next level of care which would be comfort only. I explained how we would specifically dedicated her treatment regimen to comfort only. We would remove all of the oxygen and intravenous medications. As sick as she is I felt her life expectancy would be less than 24 hours. She clearly understood that she was not responding to the aggressive regimen. I told her there was no garcia to make a change in her therapy but I wanted her to be aware of the options. At the end of the conversation the patient in fact elected comfort care only. I explained to the patient that I would feel more comfortable for her to return and have the discussion once again with the present. The ICU staff called me when the will is back at the bedside. I reviewed the entire conversation with the patient's at the bedside. The confirmed that she wanted comfort measures. The only caveat was that there went to try and see if the children could make it to the hospital before instituting comfort measures. I absolutely reassured them that we would not make any changes but that her condition could deteriorate regardless. The patient's is going to begin making phone calls and I reported to the staff that we would keep our current plan in place.
--- NOTE | 2019-03-04 21:22 | Death Summary ---
Summary Date : 03/04/19 Time of :: 17:16 Autopsy: No Resuscitation Status: Comfort Measures Only - Final Diagnosis (1) Sepsis Is this a current diagnosis for this admission?: Yes (2) Acute respiratory failure with hypoxia Is this a current diagnosis for this admission?: Yes (3) Pneumonia Is this a current diagnosis for this admission?: Yes (4) Elevated troponin I level Is this a current diagnosis for this admission?: Yes (5) Hypotension Is this a current diagnosis for this admission?: Yes (6) Neutropenic fever Is this a current diagnosis for this admission?: Yes (7) Lactic acidemia Is this a current diagnosis for this admission?: Yes (8) Tachycardia Is this a current diagnosis for this admission?: Yes (9) Thrombocytopenia Is this a current diagnosis for this admission?: Yes (10) Breast cancer metastasized to lung Is this a current diagnosis for this admission?: Yes (11) Hypokalemia Is this a current diagnosis for this admission?: Yes Hospital Course:: The patient had a very difficult day. Despite very aggressive interventions with fluid, diltiazem infusion, antibiotics and antipyretics the patient failed to improve. After the discussion about comfort measures we did elect to continue on her current course to try and allow time for children to travel to the bedside. The ICU nurse phone me at approximately 4:30 PM. The patient had a significant surgeon blood pressure and then began to decompensate. I instructed the staff to utilize the intravenous morphine that is available. I told her to inform the patient's and that it would be best to withdraw medications as she was actively dying. When I arrived in the ICU the patient had at 5:16 PM. We did notify Dr. Major scherer. certificate was completed.
[2019-03-04] MEDS ORDERED: VANCOMYCIN HCL 1,250 MG in DEXTROSE 5%-WATER 250 ML IV SCH (22:00)
[2019-03-05] MEDS ORDERED: PANTOPRAZOLE SODIUM 40 MG TABLET.DR PO SCH (06:00)
== END 2019-03-04 21:21 | disposition left against medical advice (07) | DRG 871 ==
LOC: ER 03:41 → EH 08:26 → ICU 10:02
PROVIDERS: ADMIT Hospitalist; ATTEND Internal Medicine
DX: A41.9 Sepsis, unspecified organism (principal); J18.1 Lobar pneumonia, unspecified organism; J96.21 Acute and chronic respiratory failure with hypoxia; C79.89 Secondary malignant neoplasm of other specified sites; C34.90 Malignant neoplasm of unspecified part of unspecified bronchus or lung; C78.2 Secondary malignant neoplasm of pleura; C78.7 Secondary malignant neoplasm of liver and intrahepatic bile duct; C79.31 Secondary malignant neoplasm of brain; E87.2 Acidosis; D70.9 Neutropenia, unspecified; R50.81 Fever presenting with conditions classified elsewhere; R00.0 Tachycardia, unspecified; D69.6 Thrombocytopenia, unspecified; L59.8 Other specified disorders of the skin and subcutaneous tissue related to radiation; C50.412 Malignant neoplasm of upper-outer quadrant of left female breast; E87.6 Hypokalemia; E03.9 Hypothyroidism, unspecified; G47.30 Sleep apnea, unspecified; Z99.81 Dependence on supplemental oxygen; Z17.1 Estrogen receptor negative status [ER-]; Z90.13 Acquired absence of bilateral breasts and nipples
CPT/HCPCS: 36415; 36591; 36600; 51702; 71045; 80053; 80307; 81001; 82803; 83605; 83880; 84484; 85025; 87040; 87086; 93005; 93010; 94660; 96365; 96366; 96367; 96368; 99291; J0692; J2270; J2543; J3370; J3480; J3490; J7030; J7060; J7120